=== PATIENT | female | born 1970 | race Caucasian/White ===

== ENCOUNTER 2022-03-20 09:55 | Outpatient (CLI) | payer OTHER, SELFPAY ==
--- OUTSIDE RECORDS SUMMARY | 2022-03-20 09:58 | XMS_ITS | Clinical Summary ---
:1970 Author Organization [facility] [place] [address] Care Team Providers Name Role Phone Vickey Weber MD Unavailable Allergies Active Allergy Reactions Severity Noted Date Comments Terbinafine Hives 07/06/2014 Medications Medication Sig Dispensed Refills Start Date End Date Status triamterene-hydrochlor Take 1 capsule by 0 4 Active othiazide, 37.5-25 mg, mouth. (DYAZIDE) 37.5-25 mg capsule LORazepam (ATIVAN) 0.5 Take 0.5-1 tablets 10 tablet 0 06/15/20 14 Active mg tab by mouth every 6 hours if needed for Anxiety or Sleep. Active Problems Problem Noted Date Unspecified essential hypertension 02/17/2007 Chronic interstitial cystitis 02/17/2007 Social History Tobacco Use Types Packs/Day Years Used Date Never Smoker Smokeless Tobacco: Never Used Tobacco Cessation: Counseling Given: Yes Alcohol Use Standard Drinks/Week Comments Yes 0 (1 standard drink = 0.6 oz pure alcoho l) occasionally Alcohol Habits Answer Date Recorded How often do you have a drink containing alcohol? Not asked How many drinks containing alcohol do you have on a Not aske d typical day when you are drinking? How often do you have six or more drinks on one occasion? No t asked Comment: occasionally 02/23/2014 Sex Assigned at Date Recorded Not on file Obstetrics History Para Term AB IAB SAB Ectopic Multiple Living Live Births 4 1 1 2 2 1 1 Date Outcome GA Total Labor/2nd/3rd Weight Sex Delivery Anes PTL Ivet A 1 A5 Name Clin Labor Term Pam ng SAB SAB Last Filed Vital Signs Vital Sign Reading Time Taken Comments Blood Pressure 125/86 07/25/2015 8:47 AM DIRECTOR OF ASSESSMENT Pulse 76 07/25/2015 8:47 AM DIRECTOR OF ASSESSMENT Temperature 37 ??C (98.6 ??F) 07/19/2014 10:58 AM DIRECTOR OF ASSESSMENT Respiratory Rate - - Oxygen Saturation 98% 07/25/2015 8:47 AM DIRECTOR OF ASSESSMENT Inhaled Oxygen Concentration - - Weight 74.8 kg (164 lb 12.8 oz) 07/25/2015 8:47 AM DIRECTOR OF ASSESSMENT Height - - Body Mass Index - - Plan of Treatment Health Maintenance Due Date Last Done Comments COVID-19 vaccine series (#1) 01/22/1972 Tdap 1982 Depression screening for age 12+ 1983 BMI (ht and wt on same day) for 1989 age 18+ Hepatitis C screening for age 0107/24/1989 18-79 Tetanus booster 1991 Colonoscopy through age 75 2016 Lipids for age 45-75 2016 Mammogram for age 45-75 2016 Zoster (shingles) series for age 0107/24/2021 50+ (1 of 2) Influenza for age 50-64 03/21/2022 Pap test for age 21-65 08/17/2024 08/17/2021, 08/17/2021, 10/11/2013, Additional history exists Results Not on filefrom Last 3 Months Insurance Payer Benefit Plan / Subscriber ID Effective Dates Phone Addre ss Type Group BLUE CROSS BLUE CROSS OF [id number] 2007-Present [address] [place] [address] BLUE CROSS BLUE CROSS OF [id number] 2013-Present [address] [place] [address] (Work) [id number] Care Teams Small Kick Press Operator Relationship Specialty Start Date End Date Vickey Weber MD 07/22/08
[2022-03-20 13:10] LABS: Albumin* 4.1 g/dL (3.3-5.0); Chloride* 101 mmol/L (96-114); Sodium* 137 mmol/L (135-149)
[2022-03-20 13:11] LABS: Potassium* 4.1 mmol/L (3.6-5.1)
[2022-03-20 13:13] LABS: Alanine Aminotransferase* 24 U/L (4-35); Alkaline Phosphatase* 81 U/L (40-150); Aspartate Amino Transferase* 25 U/L (12-35); Bilirubin Total* 0.4 mg/dL (0.1-1.5); Blood Urea Nitrogen* 13 mg/dL (7-30); Calcium* 9.5 mg/dL (8.4-10.6); Carbon Dioxide* 28 mmol/L (20-32); Cholesterol* 212 mg/dL (90-199); Creatinine* 0.9 mg/dL (0.5-1.5); Estimated Glomerular Filt Rate 78 ml/min; Glucose* 96 mg/dL (60-115); Total Protein* 6.9 g/dL (6.0-8.3); Triglycerides* 76 mg/dL (40-149)
[2022-03-20 13:14] LABS: HDL Cholesterol* 73 mg/dL (>=50); LDL Cholesterol Calculated 124 mg/dL (<100)
== END 2022-03-20 09:56 | disposition home or self-care (01) ==
PROVIDERS: PCP Internal Medicine; Visit Provider Internal Medicine
DX: I10 Essential (primary) hypertension (principal); F41.9 Anxiety disorder, unspecified
CPT/HCPCS: 80053; 80061; 84443

== ENCOUNTER 2022-04-09 11:55 | Outpatient (CLI) | payer OTHER, SELFPAY ==
--- OUTSIDE RECORDS SUMMARY | 2022-04-09 11:58 | XMS_ITS | Clinical Summary ---
:1970 Author Organization [facility] [place] [address] Care Team Providers Name Role Phone Vickey [...] Pressure 125/86 07/25/2015 8:47 AM DIRECTOR OF PRODUCT DEVELOPMENT Pulse 76 07/25/2015 8:47 AM DIRECTOR OF PRODUCT DEVELOPMENT Temperature 37 ??C (98.6 ??F) 07/19/2014 10:58 AM DIRECTOR OF PRODUCT DEVELOPMENT Respiratory Rate - - Oxygen Saturation 98% 07/25/2015 8:47 AM DIRECTOR OF PRODUCT DEVELOPMENT Inhaled Oxygen Concentration - - Weight 74.8 kg (164 lb 12.8 oz) 07/25/2015 8:47 AM DIRECTOR OF PRODUCT DEVELOPMENT Height - - Body Mass Index - [...] Type Group BLUE CROSS BLUE CROSS OF [id number] 2007-Present [address] [place] [address] BLUE CROSS BLUE CROSS OF [id number] 2013-Present [address] [place] [address] (Work) [id number] Care Teams Educational Audiologist Relationship Specialty Start Date End Date Vickey Weber MD 07/22/08
[2022-04-09 13:22] LABS: Creatinine Urine 48.7 mg/dL
[2022-04-09 13:26] LABS: Microalbumin Creatinine Ratio 20 mg/g (0-30); Microalbumin Urine < 1 mg/dL
[2022-04-14 11:52] LABS: Renin Activity 3.8 ng/mL/hr
== END 2022-04-09 11:56 | disposition home or self-care (01) ==
PROVIDERS: PCP Internal Medicine; Visit Provider Internal Medicine Nephrology
DX: Z01.419 Encounter for gynecological examination (general) (routine) without abnormal findings (principal); I10 Essential (primary) hypertension; F41.9 Anxiety disorder, unspecified
CPT/HCPCS: 82043; 82088; 82570; 84244; 87086; 87186

== ENCOUNTER 2022-04-26 09:04 | Outpatient (CLI) | payer OTHER, SELFPAY ==
--- OUTSIDE RECORDS SUMMARY | 2022-04-26 09:06 | XMS_ITS | Clinical Summary ---
:1970 Author Organization [facility] [place] [address] Care Team Providers Name Role Phone Vickey [...] Comments Blood Pressure 125/86 07/25/2015 8:47 AM REDEVELOPMENT MANAGER Pulse 76 07/25/2015 8:47 AM REDEVELOPMENT MANAGER Temperature 37 ??C (98.6 ??F) 07/19/2014 10:58 AM REDEVELOPMENT MANAGER Respiratory Rate - - Oxygen Saturation 98% 07/25/2015 8:47 AM REDEVELOPMENT MANAGER Inhaled Oxygen Concentration - - Weight 74.8 kg (164 lb 12.8 oz) 07/25/2015 8:47 AM REDEVELOPMENT MANAGER Height - - Body Mass Index - [...] Type Group BLUE CROSS BLUE CROSS OF [id number] 2007-Present [address] [place] [address] BLUE CROSS BLUE CROSS OF [id number] 2013-Present [address] [place] [address] (Work) [id number] Care Teams Port Engineer Relationship Specialty Start Date End Date Vickey Weber MD 07/22/08
--- NOTE | 2022-04-26 09:15 | CRLHL7_ITS ---
For Patients: As a result of the Century Cures Act, medical imaging exams and procedure reports are released immediately into your electronic medical record. You may view this report before your referring provider. If you have questions, please contact your health care provider. Indication: Persistent hypertension, evaluate for renal artery stenosis. Technique: Routine renal artery duplex ultrasound examination, with 2D and spectral analysis, and color doppler imaging. Comparison: None available. Findings: The right kidney measures 11.3 x 4.3 x 4.5 cm without evidence of hydronephrosis, abnormal cortical echotexture, or cortical thinning. No obvious calcifications or masses. The left kidney measures 10.9 x 5.3 x 6.3 cm without evidence of hydronephrosis, abnormal cortical echotexture, or cortical thinning. No obvious calcifications or masses. Bilateral renal arteries are well-visualized. The velocity in the abdominal aorta was measured at 176.5 cm/second. The right renal artery was measured at 263.3 cm/sec, and the left renal artery was measured at 185 cm/sec. This results in the renal artery ratio 1.5 and 1, respectively. Resistive indices in the upper, mid, and lower pole of the right and left kidney were acquired at 0.6, 0.6 and 0.6 for the right kidney and 0.5, 0.6 and 0.7 for the left kidney. The urinary bladder appears normal. Bilateral renal veins are patent on color and spectral analysis. Impression: 1. No sonographic evidence of a hemodynamically significant renal artery stenosis. 2. No evidence of hydronephrosis. Dictated by Igor Fuller MD @ 04/26/2022 1:20:50 PM (Electronically Signed)
== END 2022-04-26 09:05 | disposition home or self-care (01) ==
LOC: US 09:04
PROVIDERS: PCP Internal Medicine; Visit Provider Internal Medicine Nephrology
DX: I10 Essential (primary) hypertension (principal)
CPT/HCPCS: 76775; 93975

== ENCOUNTER 2022-05-22 15:23 | Outpatient (CLI) | payer OTHER, SELFPAY ==
--- OUTSIDE RECORDS SUMMARY | 2022-05-22 08:35 | XMS_ITS | Clinical Summary ---
:1970 Author Organization [facility] [facility] [place] [address] Care Team Providers Name Role Phone Vickey [...] Comments Blood Pressure 125/86 07/25/2015 8:47 AM MATHEMATICS EDUCATION PROFESSOR Pulse 76 07/25/2015 8:47 AM MATHEMATICS EDUCATION PROFESSOR Temperature 37 ??C (98.6 ??F) 07/19/2014 10:58 AM MATHEMATICS EDUCATION PROFESSOR Respiratory Rate - - Oxygen Saturation 98% 07/25/2015 8:47 AM MATHEMATICS EDUCATION PROFESSOR Inhaled Oxygen Concentration - - Weight 74.8 kg (164 lb 12.8 oz) 07/25/2015 8:47 AM MATHEMATICS EDUCATION PROFESSOR Height - - Body Mass Index - [...] Type Group BLUE CROSS BLUE CROSS OF [id number] 2007-Present [address] [place] [address] BLUE CROSS BLUE CROSS OF [id number] 2013-Present [address] [place] [address] (Work) [id number] Care Teams Parking Meter Servicer Relationship Specialty Start Date End Date Vickey Weber MD 07/22/08
--- OUTSIDE RECORDS SUMMARY | 2022-05-22 08:35 | XMS_ITS | Clinical Summary ---
:1970 Author Organization [facility] Address [address] [place] [address] Care Team Providers Name Role Phone Unavailable Primary Care Provider Unavailable Source Comments Patient records contain information from all sites at [facility]. For routine questions regarding patient records, call [phone] during business hours, M-F 8:00 AM - 5:00 PM Central Time. Record requests for emergency care only can be directed to [phone] at any time.[facility] Medications Medication Sig Dispensed Refills Start Date End Date Status carvediloL (COREG) Take 1 tablet 180 tablet 3 04/09/202204/09 Active 12.5 mg tablet (12.5 mg total) by mouth 2 (two) times a day with meals. escitalopram Take 1 tablet 90 tablet 3 04/09/2022 04/09/2023 A ctive (LEXAPRO) 10 mg (10 mg total) by tablet mouth daily. losartan (COZAAR) 50 Take 1 tablet 90 tablet 3 04/09/20222 Active mg tablet (50 mg total) by mouth daily. triamterene-hydroCHLO Take 1 capsule 90 capsule 3 04/09/2022 0 04/09/2023 Active ROthiazide (DYAZIDE) by mouth daily. 37.5-25 mg per capsule LORazepam (ATIVAN) Take 1 tablet 30 tablet 0 04/09/2022 Active 0.5 mg tablet (0.5 mg total) by mouth 2 (two) times a day as needed for anxiety. Active Problems Problem Noted Date Hypertension And Chronic Kidney Disease Stage 1 2021 Apnea Sleep Obstructive 04/09/2022 Encounters Date Type Specialty Care Team Description 04/09/2022 External Outreach Nephrology and Ducor, Hyperten renetta And Chronic Kidney Disease Stage 1 (Primary Dx); Hypertension Matt Guillaume Jr., Apnea Sleep Ob structive D.O. from Last 3 Months Social History Tobacco Use Types Packs/Day Years Used Date Smoking Tobacco: Never Assessed Sex Assigned at Date Recorded Not on file Last Filed Vital Signs Vital Sign Reading Time Taken Comments Blood Pressure 124/92 04/09/2022 12:24 PM CDT Pulse 83 04/09/2022 12:24 PM CDT Temperature - - Respiratory Rate - - Oxygen Saturation - - Inhaled Oxygen Concentration - - Weight 77.1 kg (169 lb 15.6 oz) 04/09/2022 12:24 PM CDT Height 169.5 cm (5' 6.73) 04/09/2022 12:24 PM CDT Body Mass Index 26.84 04/09/2022 12:24 PM CDT Plan of Treatment Health Maintenance Due Date Last Done Comments CT Colonography 1971 Cologuard 1971 Colonoscopy 1971 Colorectal Cancer Screening 1971 Creatinine Level 1971 FIT 1971 Fasting Glucose for Diabetes 1971 Screening HIV Screening 1971 Hepatitis C Screening 1971 Lipid (Cholesterol) Screening 1971 Mammogram 1971 Potassium Level 1971 Sodium Level 1971 Hepatitis B Vaccines (3 of 3 03/30/1994 10/28/1993, - 19+ 3-dose series) 09/27/1993 DTaP,Tdap,and Td Vaccines (2 09/28/2017 09/29/2007 - Td or Tdap) Depression Screening (Annual 07/21/2021 PHQ-2) COVID-19 Vaccine (4 - Booster 2021 05/29/2021, for Pfizer series) 11/04/2020, 10/14/2020 Zoster Vaccines (1 of 2) 2021 Influenza Vaccine (#1) 2022 Office Visit for Blood 07/09/2022 04/09/2022 Pressure Check / Re-check Cervical Cancer Screening 08/17/2024 08/17/2021 Pneumococcal vaccine (0-64 Aged Out No lo nger eligible based years) on patient's age to complete this to [facility] Insurance Payer Benefit Plan Subscriber ID Effective Dates Phone Address Type / Group [facility] [id number] 2020-Presen [phone] [address] Medicaid HMO t [address] [place] [address]
--- OUTSIDE RECORDS SUMMARY | 2022-05-22 08:35 | XMS_ITS | Encounter Summary ---
:1970 Author Organization [facility] Address [address] [place] [id number] Care Team Providers Name Role Phone Unavailable Primary Care Provider Unavailable Reason for Visit Appointment Request (Routine) - Closed Specialty Diagnoses / Procedures Referred By Contact Refer red To Contact Nephrology and Vickey Weber Hypertension M.D. [address] [place] [address] Referral ID Status Reason Start Date Expiration Date Visits Requ ested Visits Authorized [id number] Closed 03/20/2022 03/20/2023 1 Encounter Details Date Type Department Care Team Description 04/09/2022 External Outreach Division of Anisha Milian on And Chronic Kidney Disease Stage 1 (Primary Dx); Nephrology and Matt Guillaume Jr., Apnea Sleep Obstructive Hypertension in .[place], [place] [address] [facility] [address] [place] [phone] [phone] Social History Tobacco Use Types Packs/Day Years Used Date Smoking Tobacco: Never Assessed Sex Assigned at Date Recorded Not on file documented as of this encounter Last Filed Vital Signs Vital Sign Reading [...] Mass Index 26.84 04/09/2022 12:24 PM CDT documented in this encounter Progress Notes Matt Milian Jr., D.O. - 04/09/2022 11:00 AM CDT Referring Provider: DR Weber SUBJECTIVE REASON FOR VISIT [place] [facility] Resistant hypertension, evaluation and management HISTORY OF PRESENT ILLNESS Ms. Cornell is a 51 y.o. female who presents with a history of hypertension which dates back to her 38th birthday. She was 3 times, had 1 live , no toxemia no eclampsia. She is a very extensive family history of hypertension in both her parents, all 4 of her grandparents, and also complications in her family including stroke and cardiac issues. She has been treated for many years with a combination diuretic, more recently required the additionof an ARB agent and amlodipine with issues of lower extremity swelling when she travels particularly. Her blood pressures recently at home have been in the 140s generally systolic, over 90s without orthostatic issues. She is currently on the combination diuretic, losartan, and amlodipine. She avoid sodium. She does not use NSAIDs. She is not had distinct episodes of dramatic spells. I note in her history to episodes of hypokalemia, appreciated approximately 5 and 3 years ago. She has normal renal function, her urinalysis does not demonstrate abnormal urinary sediment, proteinuria assessment is pending. Renal imaging is pending. She does have sleep disordered breathing. She is currently using a dental appliance. However she still feels absolutely exhausted even after 8 hours of sleep. She is an international travel, owns her own business, often is dealing with high stress situations particularly surrounding organizing and orchestrating business conferences. She does not smoke cigarettes, she does not heavily drink alcohol drinking less than 3 alcoholic drinks per month No B symptoms, no recent weight loss, no other worrisome constitutional complaints. Of interest she also has interstitial cystitis, which troubles her, with nocturia several times per night. Past medical history: 1. Longstanding hypertension 2. Interstitial cystitis 3. Perimenopausal 4. Dysthymia/anxiety disorder Current Outpatient Medications: carvediloL (COREG) 12.5 mg tablet, Take 1 tablet (12.5 mg total) by mouth 2 (two) times a day with meals., Disp: 180 tablet, Rfl: 3 escitalopram (LEXAPRO) 10 mg tablet, Take 1 tablet (10 mg total) by mouth daily., Disp: 90 tablet, Rfl: 3 LORazepam (ATIVAN) 0.5 mg tablet, Take 1 tablet (0.5 mg total) by mouth 2 (two) times a day as needed for anxiety., Disp: 30 tablet, Rfl: 0 losartan (COZAAR) 50 mg tablet, Take 1 tablet (50 mg total) by mouth daily., Disp: 90 tablet, Rfl: 3 triamterene-hydroCHLOROthiazide (DYAZIDE) 37.5-25 mg per capsule, Take 1 capsule by mouth daily., Disp: 90 capsule, Rfl: 3 REVIEW OF SYSTEMS All other systems reviewed and are negative. OBJECTIVE BP (!) 124/92 Pulse 83 Ht 169.5 cm Wt 77.1 kg BMI 26.84 kg/m?? PHYSICAL EXAMINATION General: Awake alert oriented HEENT: [place], EOMI, Mucous membranes moist, no oral lesions Neck: No Masses, No Bruits Lungs: Clear to ascultation Heart: Regular Rate and Rhythm, No ectopy Murmurs or rubs Abdomen: Soft, Non-tender Extremities: No cyanosis, No clubbing: No edema Neuro: Cranial Nerves intact, Gait is normal, strength grossly normal Skin: no suspicious lesions identified Psychiatric: Normal affect DIAGNOSTICS Normal CBC normal chemistries urinalysis without active urinary sediment ASSESSMENT / PLAN #1 Hypertension And Chronic Kidney Disease Stage 1 Suspect this is essential hypertension, but there are some features, namely her sleep disordered breathing, , episodes of hypokalemia and extremely early age onset which require us to move ahead with evaluation. She has a very strong family history which leads us to believe that most likely she does have essential hypertension. From a diagnostic perspective: 1. Renal artery ultrasound with renal ultrasound 2. Check renin and Denis levels 3. Consider reassessment of her sleep, particularly overnight oximetry and perhaps formal sleep study From a therapeutic perspective: 1. Given her lower extremity swelling which she experiences with the amlodipine we will stop this. 2. We will start carvedilol 12.5 mg twice daily 3. I suspect we will end up using spironolactone in place of her current diuretic regimen 4. Continue low-sodium diet 5. No NSAIDs or Castaneda 2 inhibitors 6. Advised daily aerobic exercise for 20 minutes She will be out of the country, I will see her back in May with the results. Offered her all my contact information, so that we can fine tune her regimen. #2 Apnea Sleep Obstructive As above I suspect that she will go on to require at least overnight oximetry, versus a formal sleepstudy. She is not interested whatsoever in a CPAP device, due to her heavy travel schedule. She is working with her dentist to perhaps re formulate her current dental appliance which is designed to keep her lower jaw away from the back of her throat. Total time: 1 hour and 5 minutes Counseling Time: 50 minutes Matt Milian Jr., D.O. documented in this encounter Plan of Treatment Not on filedocumented as of this encounter Visit Diagnoses Diagnosis Hypertension And Chronic Kidney Disease Stage 1 - Primary Apnea Sleep Obstructive documented in this encounter
--- OUTSIDE RECORDS SUMMARY | 2022-05-22 08:35 | XMS_ITS | Encounter Summary ---
:1970 Author Organization [facility] Address [address] [place] [address] Care Team Providers Name Role Phone Unavailable Primary Care Provider Unavailable Encounter Details Date Type Department Care Team Description 02/11/1994 - Hospital Encounter HX RST 061 Provider, Historical 02/13/1994 Social History Tobacco Use Types Packs/Day Years Used Date Smoking Tobacco: Never Assessed Sex Assigned at Date Recorded Not on file documented as of this encounter Plan of Treatment Not on filedocumented as of this encounter Visit Diagnoses Not on filedocumented in this encounter
[2022-05-22 11:03] LABS: Creatinine Urine 118.9 mg/dL; Microalbumin Creatinine Ratio 0 mg/g (0-30); Microalbumin Urine < 1 mg/dL
[2022-05-23 18:51] LABS: Aldolase 2.9 U/L (1.2-7.6)
== END 2022-05-22 15:24 | disposition home or self-care (01) ==
PROVIDERS: PCP Internal Medicine; Visit Provider Internal Medicine Nephrology
DX: Z01.818 Encounter for other preprocedural examination (principal); I10 Essential (primary) hypertension
CPT/HCPCS: 82043; 82085; 82570; 84244; 87086; 87186

== ENCOUNTER 2022-06-06 11:36 | Outpatient (REF) | payer OTHER, SELFPAY ==
--- OUTSIDE RECORDS SUMMARY | 2022-06-06 11:45 | XMS_ITS | Encounter Summary ---
:1970 Author Organization [facility] Address [address] [place] [address] Care Team Providers Name Role Phone Unavailable [...]
--- OUTSIDE RECORDS SUMMARY | 2022-06-06 11:45 | XMS_ITS | Clinical Summary ---
:1970 Author Organization [facility] Address [address] [place] [address] Care Team Providers Name Role Phone Unavailable Primary Care Provider Unavailable Source Comments Patient records contain information from all sites at [facility]. For routine questions regarding patient records, call [phone] during business hours, M-F 8:00 AM - 5:00 PM Central Time. Record requests for emergency care only can be directed to [phone] at any time.[facility] Medications Medication Sig Dispensed [...] 50 Take 1 tablet 90 tablet 3 04/09/202203/22 Active mg tablet (50 mg total) by [...] Encounters Date Type Specialty Care Team Description 05/28/2022 External Outreach Nephrology and [place], Hyperten renetta And Chronic Kidney Disease Stage 1 (Primary Dx); Hypertension Matt Guillaume Jr., Apnea Sleep Ob structive D.O. 04/09/2022 External Outreach Nephrology and [place], Hyperten renetta And Chronic Kidney Disease Stage 1 (Primary Dx); Hypertension Matt Guillaume Jr., Apnea Sleep Ob structive D.O. from Last 3 Months Social History Tobacco Use Types Packs/Day Years Used Date Smoking Tobacco: Never Assessed Sex Assigned at Date Recorded Not on file Last Filed Vital Signs Vital Sign Reading Time Taken Comments Blood Pressure 130/72 05/28/2022 12:15 PM CABLE BRAIDER Pulse 75 05/28/2022 12:15 PM CABLE BRAIDER Temperature - - Respiratory Rate - - Oxygen Saturation - - Inhaled Oxygen Concentration - - Weight 78.9 kg (173 lb 15.1 oz) 05/28/2022 12:15 PM CABLE BRAIDER Height 169.5 cm (5' 6.73) 05/28/2022 12:15 PM CABLE BRAIDER Body Mass Index 27.46 05/28/2022 12:15 PM CABLE BRAIDER Plan of Treatment Health Maintenance Due Date [...] Vaccine (#1) 2022 Office Visit for Blood 05/28/2023 05/28/2022 Pressure Check / Re-check Cervical Cancer Screening 08/17/2024 08/17/2021 Pneumococcal vaccine (0-64 Aged Out No lo nger eligible based years) on patient's age to complete this to [facility] Insurance Payer Benefit Plan / Subscriber ID Effective Dates Phone Addre ss Type Group UCARE UCARE [id number] 2020-Present [phone] [address] [place] [address]
--- OUTSIDE RECORDS SUMMARY | 2022-06-06 11:45 | XMS_ITS | Encounter Summary ---
:1970 Author Organization [facility] Address [address] [place] [address] Care Team Providers Name Role Phone Unavailable Primary Care Provider Unavailable Reason for Visit Appointment Request (Routine) - Closed Specialty Diagnoses / Procedures Referred By Contact Refer red To Contact Nephrology and Vickey Weber Hypertension M.D. [address] [place] [address] Referral ID Status Reason Start Date Expiration Date Visits Requ ested Visits Authorized [id number] Closed 03/20/2022 03/20/2023 1 Encounter Details Date Type Department Care Team Description 04/09/2022 External Outreach Division of Anisha Milian on And Chronic Kidney Disease Stage 1 (Primary Dx); Nephrology and Matt Guillaume Jr., Apnea Sleep Obstructive Hypertension in [place], [place] [address] [facility] [address] [place] [phone] Social History Tobacco Use Types Packs/Day Years [...] Provider: DR Weber SUBJECTIVE REASON FOR VISIT [place] [facility] Resistant hypertension, evaluation [...]
--- OUTSIDE RECORDS SUMMARY | 2022-06-06 11:45 | XMS_ITS | Clinical Summary ---
:1970 Author Organization [facility] [place] [address] Care Team Providers Name Role Phone Vickey [...] Comments Blood Pressure 125/86 07/25/2015 8:47 AM FINISH MENDER Pulse 76 07/25/2015 8:47 AM FINISH MENDER Temperature 37 ??C (98.6 ??F) 07/19/2014 10:58 AM FINISH MENDER Respiratory Rate - - Oxygen Saturation 98% 07/25/2015 8:47 AM FINISH MENDER Inhaled Oxygen Concentration - - Weight 74.8 kg (164 lb 12.8 oz) 07/25/2015 8:47 AM FINISH MENDER Height - - Body Mass Index - [...] Type Group [employer]OSS [employer] OF [id number] 2007-Present [address] [place] [address] [employer] [id number] 2013-Present [address] [place] [address] (Work) [id number] Care Teams [place] Worker Relationship Specialty Start Date End Date Vickey Weber MD 07/22/08
--- OUTSIDE RECORDS SUMMARY | 2022-06-06 11:45 | XMS_ITS | Encounter Summary ---
:1970 Author Organization [facility] Address [address] [place] [address] Care Team Providers Name Role Phone Unavailable Primary Care Provider Unavailable Reason for Visit Appointment Request (Routine) - Closed Specialty Diagnoses / Procedures Referred By Contact Refer red To Contact Nephrology and Hypertension Referral ID Status Reason Start Date Expiration Date Visits Requ ested Visits Authorized [id number] Closed 05/03/2022 05/03/2023 1 Encounter Details Date Type Department Care Team Description 05/28/2022 External Outreach Division of Anisha Milian on And Chronic Kidney Disease Stage 1 (Primary Dx); Nephrology and Matt Guillaume Jr., Apnea Sleep Obstructive Hypertension in [place], [place] [address] [facility] [address] [place] [phone] Social History Tobacco Use Types Packs/Day Years Used Date Smoking Tobacco: Never Assessed Sex Assigned at Date Recorded Not on file documented as of this encounter Last Filed Vital Signs Vital Sign Reading Time Taken Comments Blood Pressure 130/72 05/28/2022 12:15 PM AWNING SPREADER Pulse 75 05/28/2022 12:15 PM AWNING SPREADER Temperature - - Respiratory Rate - - Oxygen Saturation - - Inhaled Oxygen Concentration - - Weight 78.9 kg (173 lb 15.1 oz) 05/28/2022 12:15 PM AWNING SPREADER Height 169.5 cm (5' 6.73) 05/28/2022 12:15 PM AWNING SPREADER Body Mass Index 27.46 05/28/2022 12:15 PM AWNING SPREADER documented in this encounter Progress Notes Matt Milian Jr., D.O. - 05/28/2022 12:00 PM CST Referring Provider: No primary care provider on file. SUBJECTIVE REASON FOR VISIT [place] [facility] Follow-up regards resistant hypertension HISTORY OF PRESENT ILLNESS Ms. Cornell is a 51 y.o. female who presents with a longstanding history of resistant hypertension. Her aldosterone levels are not out of concordance with her renin levels. Her renal artery ultrasound was negative for macrovascular stenosis. Her renin levels are not overly suppressed nor elevated. Her chemistries are acceptable her renal function normal, and she has no proteinuria. Her blood pressure has been running in the 130s to 140s over 70s and 80s without orthostatic issues.She was delighted that the lower extremity swelling was relieved with discontinuation of the amlodipine. She is still utilizing losartan 50 mg daily, carvedilol 12.5 mg twice daily, and triamterene/hydrochlorothiazide 37.5 mg, 25 mg She is still struggling with her sleep. She is traveling nearly constantly, and struggles with quite a bit of fatigue. History reviewed. No pertinent past medical history. Current Outpatient Medications: carvediloL (COREG) 12.5 mg [...] systems reviewed and are negative. OBJECTIVE BP 130/72 Pulse 75 Ht 169.5 cm Wt 78.9 kg BMI 27.46 kg/m?? PHYSICAL EXAMINATION General: Awake alert oriented [...] suspicious lesions identified Psychiatric: Normal affect DIAGNOSTICS All reviewed with the patient, symmetric normal renal sizes, without macrovascular stenosis or obstruction. ASSESSMENT / PLAN #1 Hypertension And Chronic Kidney Disease Stage 1 This is essential hypertension, and resistant. I am concerned about her sleep disordered breathing and, as below, we will move ahead towards a homesleep study and return with her in a month. We will continue with her current regimen including the followin. Losartan 50 mg orally daily 2. Carvedilol 12.5 mg orally twice daily 3. Triamterene/hydrochlorothiazide 37.5 mg, 25 mg orally daily. We will consider exchanging spironolactone for her combination diuretic above as our next step if weare unable to better improve her sleep. #2 Apnea Sleep Obstructive She is a mouth guard, but admits that she is snoring and waking up quite fatigued. As above, we willmove ahead with a home sleep study. Total time: 30 minutes Counseling Time: 25 minutes Matt Milian Jr., D.O. NG SPREADER documented in this encounter Plan of Treatment Not on filedocumented as of this encounter Visit Diagnoses Diagnosis Hypertension And Chronic Kidney Disease Stage 1 - Primary Apnea Sleep Obstructive documented in this encounter
[2022-06-06 13:18] LABS: Hemoglobin* 12.4 gm/dL (12.0-16.0)
[2022-06-06 13:29] LABS: Potassium* 4.5 mmol/L (3.6-5.1)
== END 2022-06-06 11:37 | disposition home or self-care (01) ==
LOC: NPINS 11:36
PROVIDERS: PCP Internal Medicine
DX: Z01.82 Encounter for allergy testing (principal)
CPT/HCPCS: 84132; 85018

== ENCOUNTER 2022-07-09 19:35 | Outpatient (CLI) | payer OTHER, SELFPAY ==
--- NOTE | 2022-07-23 08:52 | W.PM.SLEEP ---
Sleep Study Details Details Interpreting Provider: Rory Betancur MD Date of Sleep Study: 07/09/22 Sleep Study Details: STUDY TYPE:? Home ? BMI:? 28.1 ORDERING PROVIDER:? [place] INDICATION:? Concerns about sleep apnea ? SLEEP SUMMARY:? 474.8 minutes monitored RESPIRATORY SUMMARY:? AHI 19, supine AHI 21.3, left lateral AHI 6.0, right lateral AHI 8 Low oxygen 84 0.4% of study oxygen less than 90%, 0.1% of study oxygen less than 85% Snoring 19.8% PERIODIC LIMB MOVEMENTS OF SLEEP:? Not recorded CARDIAC:? Range 51-96, mean 66.7 IMPRESSION:? Moderate obstructive sleep apnea with supine position dependency. Apnea present in all positions. RECOMMENDATION: Treatment options would include AutoSet CPAP at pressure of 4-17 versus a dental appliance.
--- NOTE | 2022-08-07 13:13 | W.PM.SLEEP ---
Sleep Study Details Details Interpreting Provider: Rory Betancur MD Date of Sleep Study: 07/09/22 Sleep Study Details: STUDY TYPE:? Home ? BMI:? 28.1 ORDERING PROVIDER:? [place] INDICATION:? Concerns about sleep apnea ? SLEEP SUMMARY:? 474.8 minutes monitored RESPIRATORY SUMMARY:? AHI 19, supine AHI 21.3, left lateral 6.0, right lateral 8.00 Low oxygen 84 0.4% of study oxygen less than 90%, 0.1% of study less than 85% Snoring 19.8% PERIODIC LIMB MOVEMENTS OF SLEEP:? Not recorded CARDIAC:? 51-96, mean 61.7 IMPRESSION:? Moderate obstructive sleep apnea overall with supine position dependency RECOMMENDATION: Treatment options include AutoSet CPAP at pressure 4-17 versus a dental appliance.
== END 2022-07-09 19:36 | disposition home or self-care (01) ==
LOC: SLEEP 19:36
PROVIDERS: PCP Internal Medicine; Visit Provider Internal Medicine Nephrology
DX: G47.33 Obstructive sleep apnea (adult) (pediatric) (principal)
CPT/HCPCS: 95806

== ENCOUNTER 2022-07-23 14:17 | Outpatient (REF) | payer OTHER, SELFPAY ==
[2022-07-23 15:17] LABS: Potassium* 4.2 mmol/L (3.6-5.1)
== END 2022-07-23 14:18 | disposition home or self-care (01) ==
LOC: NPINS 14:17
PROVIDERS: PCP Internal Medicine
DX: Z01.812 Encounter for preprocedural laboratory examination (principal)
CPT/HCPCS: 84132

== ENCOUNTER 2023-01-17 13:03 | Outpatient (CLI) | payer MEDICAID, SELFPAY ==
--- NOTE | 2023-01-17 13:00 | CRLHL7_ITS ---
For Patients: As a result of the Century Cures Act, medical imaging exams and procedure reports are released immediately into your electronic medical record. You may view this report before your referring provider. If you have questions, please contact your health care provider. INDICATION: Low back pain. COMPARISON: None. TECHNIQUE: Sagittal T1, T2, and STIR sequences. Axial T1 and T2 weighted sequences. FINDINGS: Normal vertebral body alignment. No fractures. No vertebral body loss of height. No spondylolisthesis. No ligamentous injury. Normal marrow signal. No suspicious osseous lesions. Normal conus terminates at L1. Lumbar spondylosis with multilevel disc degeneration facet arthropathy. Marrow edema of the articular processes of the right L3-4 facet joint which may represent stress reaction or inflammation from facet arthritis. T12-L1 L1-2 L2-3: No spinal canal or neural foraminal narrowing. L3-4: Mild disc degeneration and posterior disc bulge. No narrowing of spinal canal. Mild narrowing of the bilateral foramina. Mild facet arthropathy. L4-5: Disc degeneration and posterior disc bulge. No narrowing of the spinal canal. Mild narrowing of the bilateral foramina. Mild os arthropathy. L5-S1: Annular bulge. No narrowing of spinal canal. No impingement of the traversing S1 nerve roots. No neural foraminal narrowing. Mild facet arthropathy. Normal visualized SI joints. Normal paraspinal soft tissues. A marker is not present on the title i paraprofessional or acquired images to further localize the reported lipoma. However, on the axial images, there is a asymmetric mildly prominent collection of fat at the level of S1 (series 5, image 22) which is not fully visualize within the field of view but may represent a portion of the reported lipoma. IMPRESSION: 1. Normal alignment. No fractures. 2. Lumbar spondylosis. 3. Marrow edema of the articular processes of right L3-4 facet joint may represent stress reaction or inflammation 4. At L3-4, mild narrowing of the bilateral neural foramina 5. At L4-5, mild narrowing of the bilateral neural foramina 6. No spinal canal or neural foraminal narrowing at the remaining levels Dictated by Te Mota MD @ 01/17/2023 9:54:00 PM (Electronically Signed)
== END 2023-01-17 13:04 | disposition home or self-care (01) ==
LOC: MRI 13:04
PROVIDERS: PCP Internal Medicine; Visit Provider Internal Medicine
DX: M54.50 Low back pain, unspecified (principal); M47.896 Other spondylosis, lumbar region; M51.26 Other intervertebral disc displacement, lumbar region
CPT/HCPCS: 72148

== ENCOUNTER 2023-02-20 11:13 | Outpatient (RCR) | payer MEDICAID, SELFPAY | END 2023-06-20 23:59 | disposition home or self-care (01) | PROVIDERS: PCP Internal Medicine; Visit Provider Family Medicine | DX: M47.816 Spondylosis without myelopathy or radiculopathy, lumbar region (principal); M51.36 Other intervertebral disc degeneration, lumbar region; R29.3 Abnormal posture; R53.1 Weakness; Z51.89 Encounter for other specified aftercare | CPT/HCPCS: 97110; 97162 ==

== ENCOUNTER 2023-03-11 13:59 | Outpatient (CLI) | payer OTHER, SELFPAY | END 2023-03-11 14:00 | disposition home or self-care (01) | LOC: INJ CL 14:00 | PROVIDERS: PCP Internal Medicine; Visit Provider Family Medicine | DX: M47.816 Spondylosis without myelopathy or radiculopathy, lumbar region (principal) | CPT/HCPCS: 64493; 64494; J0702; Q9966 ==

== ENCOUNTER 2023-08-19 09:48 | Outpatient (CLI) | payer OTHER, SELFPAY ==
--- OUTSIDE RECORDS SUMMARY | 2023-08-19 09:55 | XMS_ITS | Encounter Summary ---
Author Name Unknown Organization [facility] Address [address] [place] [address] Care Team Providers Care Dental Biller Name Role Phone Unavailable Primary Care Provider Unavailabl e Reason for Visit * Reason Comments Med Refill Encounter Details Date Type Department Care Team (Late st Contact Info) Description 03/16/2023 Refill Division of Nephrology and Hypertension in [place], [place] [address] [place] [address] Matt Milian Jr., D.O. [address] [place] [address] Med Refill Social History Tobacco Use Types Packs/Day Years Used Date Smoking Tobacco: Never Assessed Nutrition Answer Date Recorded Nutrition: EVOO Fat Source Unknown 03/20 Nutrition: Servings of Fruits/Vegetables per Day Not on file 03/20/2022 Dental Answer Date Recorded Dental: Regular Dentist Unknown 03/20/20 Sex and Gender Information Value Date Recorded Sex Assigned at Not on file Gender Identity Not on file Sexual Orientation Not on file documented as of this encounter Plan of Treatment Not on file documented as of this encounter Visit Diagnoses Not on filedocumented in this encounter
--- OUTSIDE RECORDS SUMMARY | 2023-08-19 09:55 | XMS_ITS | Referral Summary ---
Author Name Unknown Organization [facility] Address [address] [place] [address] Care Team Providers Care Culinary Internship Name Role Phone Unavailable Primary Care Provider Unavailabl e Source Comments Patient records contain information from all sites at [facility]. For routine questions regarding patient records, call [phone] during business hours, M-F 8:00 AM - 5:00 PM Central Time. Record requests for emergency care only can be directed to [phone] at any time.[facility] Medications Medication Sig Dispensed Refills Start Date End Date Status escitalopram (LEXAPRO) 10 mg tablet Take 1 tablet (10 mg total) by mouth daily. 90 tablet 3 04/09/2022 Active losartan (COZAAR) 50 mg tablet Take 1 tablet (50 mg total) by mouth daily. 90 tablet 3 04/09/2022 Active triamterene-hydroCHL OROthiazide (DYAZIDE) 37.5-25 mg per capsule Take 1 capsule by mouth daily. 90 capsule 3 04/09/2022 Active LORazepam (ATIVAN) 0.5 mg tablet Take 1 tablet (0.5 mg total) by mouth 2 (two) times a day as needed for anxiety. 30 tablet 0 04/09/2022 Active carvediloL (COREG) 12.5 mg tablet TAKE 1 TABLET(12.5 MG) BY MOUTH TWICE DAILY WITH MEALS 180 tablet 3 03/19/2023 Active Active Problems Problem Noted Date Diagnosed Date Hypertension And Chronic Kidney Disease Stage 1 04/09/2022 Apnea Sleep Obstructive 04/09/2022 Social History Tobacco Use Types Packs/Day Years [...] on file Sexual Orientation Not on file Last Filed Vital Signs Vital Sign Reading Time Taken Comments Blood Pressure 120/70 07/02/2022 3:45 PM LAN/WAN ENGINEER Pulse 60 07/02/2022 3:45 PM LAN/WAN ENGINEER Temperature - - Respiratory Rate - - Oxygen Saturation - - Inhaled Oxygen Concentration - - Weight 78 kg (171 lb 15.3 oz) 07/02/2022 3:45 PM LAN/WAN ENGINEER Height 169.5 cm (5' 6.73) 07/02/2022 3:45 PM CS T Body Mass Index 27.15 07/02/2022 3:45 PM LAN/WAN ENGINEER Plan of Treatment Not on file
--- OUTSIDE RECORDS SUMMARY | 2023-08-19 09:55 | XMS_ITS | Clinical Summary ---
Author Name Unknown Organization [facility] Address [address] [place] [address] Care Team Providers Care Lance Crewmember/Mlrs Sergeant Name Role Phone Unavailable Primary Care Provider Unavailabl e Source Comments Patient records contain information from all sites at [facility]. For routine questions regarding patient records, call [phone] during business hours, M-F 8:00 AM - 5:00 PM Central Time. Record requests for emergency care only can be directed to [phone] at any time.[facility] Medications Medication Sig Dispensed Refills Start Date [...] Comments Blood Pressure 120/70 07/02/2022 3:45 PM CLEARING INSPECTOR Pulse 60 07/02/2022 3:45 PM CLEARING INSPECTOR Temperature - - Respiratory Rate - - Oxygen Saturation - - Inhaled Oxygen Concentration - - Weight 78 kg (171 lb 15.3 oz) 07/02/2022 3:45 PM CLEARING INSPECTOR Height 169.5 cm (5' 6.73) 07/02/2022 3:45 PM CS T Body Mass Index 27.15 07/02/2022 3:45 PM CLEARING INSPECTOR Plan of Treatment Health Maintenance Due Date Last Done Comments CT Colonography 1971 Cologuard 1971 Colonoscopy 1971 Colorectal Cancer Screening 1971 Creatinine Level (Kidney Function Test) 1971 FIT 1971 Fasting Glucose for Diabetes Screening 1971 HIV Screening 1971 Hepatitis C Screening 1971 Lipid (Cholesterol) Screening 1971 Mammogram 1971 Potassium Level 1971 Sodium Level 1971 Hepatitis B Vaccines (3 of 3 - 19+ 3-dose series) 03/30/1994 10/28/1993, 09/27/1993 DTaP,Tdap,and Td Vaccines (2 - Td or Tdap) 09/28/2017 09/29/2007 Zoster Vaccines (1 of 2) 2021 COVID-19 Vaccine ( - 2022-24 season) 2023 02/26/2022, 05/29/2021, 11/04/2020, Additional history exists Influenza Vaccine (#1) 2023 Office Visit for Blood Pressure Check / Re-check 07/02/2023 07/02/2022 Depression Screening (Annual PHQ-2) 07/21/2023 Cervical Cancer Screening 08/17/2024 08/17/2021 Pneumococcal vaccine (0-64 years) Aged Out No longer eligible based on patient's age to complete this topic
--- OUTSIDE RECORDS SUMMARY | 2023-08-19 09:55 | XMS_ITS | Clinical Summary ---
Author Name Unknown Organization [facility] Address [place], [place] [address] Care Team Providers Care Perianesthesia Rn Name Role Phone Vickey Weber MD Primary Care Provider Vickey Weber MD Unavailable [phone] Allergies Active Allergy Reactions Criticality Noted Date Comments Terbinafine Hives 07/06/2014 Medications Medication Sig Dispensed Refills Start Date End Date Status triamterene-hydrochlo rothiazide, 37.5-25 mg, (DYAZIDE) 37.5-25 mg capsule Take 1 capsule by mouth. 0 02/23/2014 Active LORazepam (ATIVAN) 0.5 mg tab Take 0.5-1 tablets by mouth every 6 hours if needed for Anxiety or Sleep. 10 tablet 0 06/15/2014 Active amLODIPine (NORVASC) 10 mg tablet Take 10 mg by mouth once daily. 0 06/19/2022 Active escitalopram oxalate (LEXAPRO) 10 mg tablet Take 10 mg by mouth once daily. 0 Active lansoprazole (PREVACID) 30 mg capsule TAKE 1 CAPSULE BY MOUTH DAILY FOR GERD 0 12/20/2022 Active losartan (COZAAR) 50 mg tablet Take 50 mg by mouth once daily. 0 Active Active Problems Problem Noted Date Diagnosed Date Unspecified essential hypertension 02/17/2007 Chronic interstitial cystitis 02/17/2007 Social History Tobacco Use Types Packs/Day Years Used Date Smoking Tobacco: Never Smokeless Tobacco: Never Tobacco Cessation:Counseling Given: Yes Alcohol Use Standard Drinks/Week Comments Yes 0 (1 standard drink = 0.6 oz pur e alcohol) occasionally Social Connections Answer Date Recorded Frequency of Communication with Friends and Fami ly Not on file 02/03/2023 Sex and Gender Information Value Date Recorded Sex Assigned at Not on file Gender Identity Not on file Sexual Orientation Not on file Obstetrics History Para Term AB IAB SAB Ectopic Multiple Livin g Live Births 4 1 1 2 2 1 1 Date Outcome GA Total Labor Labor/2nd/3rd Weight Sex Delivery Anes PTL Ivet A1 A5 Name Cl in Term Pam ng SAB SAB Last Filed Vital Signs Vital Sign Reading Time Taken Comments Blood Pressure 129/85 02/03/2023 11:04 AM CDT Pulse 70 02/03/2023 11:04 AM CDT Temperature 36.8 ??C (98.3 ??F) 02/03/2023 1 1:04 AM CDT Respiratory Rate - - Oxygen Saturation 100% 02/03/2023 11: 04 AM CDT Inhaled Oxygen Concentration - - Weight 74.8 kg (164 lb 12.8 oz) 07/25/2015 8:47 AM WOOD FUEL PELLETIZER Height - - Body Mass Index - - Plan of Treatment Upcoming Encounters Date Type Department Care Team (Late st Contact Info) Description 08/20/2023 8:00 AM WOOD FUEL PELLETIZER Ancillary Procedure [facility] [address] [place] [address] Health Maintenance Due Date Last Done Comments COVID-19 vaccine series (#1) 01/22/1972 Tdap 1982 Depression screening for age 12+ 1983 HIV for age 15-65 1986 BMI (ht and wt on same day) for age 18+ 1989 Hepatitis C screening for age 18-79 1989 Tetanus booster 1991 Colonoscopy through age 75 2016 Lipids for age 45-75 2016 Mammogram for age 45-75 2016 Zoster (shingles) series for age 50+ (1 of 2) 2021 Influenza for age 50-64 03/21/2023 Pap test for age 21-65 08/17/2024 2, 08/17/2021, 10/11/2013, Additional history exists Pneumococcal series for age 6-64 Aged Out No longer eligible based on patient's age to complete this topic Care Teams Perianesthesia Rn Relationship Specialty Start Date End Date Vickey Weber MD [address] [place] [address] PCP - General Internal Medicine 01/20/23 Vickey Weber MD [address] [place] [address] 07/22/08
--- OUTSIDE RECORDS SUMMARY | 2023-08-19 09:55 | XMS_ITS ---
Author Name Unknown Organization [facility] Address [address] [place] [address] Care Team Providers Care Facility Maintenance Helper Name Role Phone Unavailable Unavailable Unavailable Surgery Details Not on file Complications Check Surgery Details section. Procedure Estimated Blood Loss Check Surgery Details section. Procedure Findings Check Surgery Details section. Procedure Specimens Taken Check Surgery Details section.
== END 2023-08-19 09:49 | disposition home or self-care (01) ==
PROVIDERS: PCP Internal Medicine; Visit Provider Internal Medicine
DX: R53.83 Other fatigue (principal)
CPT/HCPCS: 80053; 84443; 86644; 86645; 86663

== ENCOUNTER 2023-09-01 08:15 | Outpatient (CLI) | payer OTHER, SELFPAY ==
--- OUTSIDE RECORDS SUMMARY | 2023-09-01 11:43 | XMS_ITS | Clinical Summary ---
Author Name Unknown Organization [facility] Address [place], [place] [address] Care Team Providers Care Sharepoint Application Developer Name Role Phone Vickey Weber MD Primary Care Provider Vickey Weber MD Unavailable [phone] Allergies Active Allergy Reactions Criticality Noted Date [...] essential hypertension 02/17/2007 Chronic interstitial cystitis 02/17/2007 Encounters Date Type Department Care Team Description 08/20/2023 8:00 AM MARKETING PROJECT LEAD Ancillary Procedure [facility] [address] [place] [address] 08/20/2023 Travel from Last 3 Months Social History Tobacco [...] (164 lb 12.8 oz) 07/25/2015 8:47 AM MARKETING PROJECT LEAD Height - - Body Mass Index - [...] 75 2016 Lipids for age 45-75 2016 Zoster (shingles) series for age 50+ (1 of 2) 2021 Influenza for age 50-64 03/21/2023 Pap test for age 21-65 08/17/2024 2, 08/17/2021, 10/11/2013, Additional history exists Mammogram for age 45-75 08/20/2024 08/20/2023 Pneumococcal series for age 6-64 Aged Out No longer eligible based on patient's age to complete this topic Procedures Procedure Name Priority Date/Time Associated Diagnosis Comments XR MAMMO ARGENIS BILAT SCREEN Routine 08/20/2023 8:18 AM MARKETING PROJECT LEAD Visit for screening mammogram from Last 3 Months Results * XR MAMMO ARGENIS BILAT SCREEN (08/20/2023 8:18 AM MARKETING PROJECT LEAD) Anatomical Region Laterality Modality BREASTS, Breast Left, Breast Right Bilateral Mammography Impressions 08/20/2023 2:42 PM MARKETING PROJECT LEAD ??There is no radiographic evidence for malignancy. ??Recommend annual mammograms. MAMMOGRAM ASSESSMENT: ??ACR 1 Negative PATIENTS: You will also receive a letter with your examination results in an easy to read format. ??If you have questions about your results, please contact your referring provider. Narrative 08/20/2023 2:42 PM MARKETING PROJECT LEAD For Patients: As a result of the Cures Act, medical imaging exams and procedure reports are released immediately into your electronic medical record. You may view this report before your referring provider. If you have questions, please contact your health care provider. XR MAMMO ARGENIS BILAT SCREEN [[id number]] CLINICAL HISTORY: ??This is an asymptomatic 53 y.o. patient. INDICATION FOR EXAM: Mammogram Screening. TECHNIQUE: CC & MLO views were obtained. ??This study was evaluated with the assistance of Computer-Aided Detection. Breast Tomosynthesis was used in interpretation. COMPARISON FILM: Priors not available at the time of this report. ? FINDINGS: ??The breasts are heterogeneously dense, which may obscure small masses. There are no dominant masses, suspicious micro calcifications or areas of architectural distortion. Matt Madden MD MAMMO from Last 3 Months Care Teams Sharepoint Application Developer Relationship Specialty Start Date End Date Vickey Weber MD [address] [place] [address] PCP - General Internal Medicine 01/20/23 Vickey Weber MD [address] [place] [address] 07/22/08
--- OUTSIDE RECORDS SUMMARY | 2023-09-01 11:43 | XMS_ITS | Referral Summary ---
Author Name Unknown Organization [facility] Address [address] [place] [address] Care Team Providers Care Reserves Clerk Name Role Phone Unavailable Primary Care Provider Unavailabl e Source Comments Patient records contain information from all sites at [facility]. For routine questions regarding patient records, call [phone] during business hours, M-F 8:00 AM - 5:00 PM Central Time. Record requests for emergency care only can be directed to [phone] at any time.[facility] Medications Medication Sig Dispensed Refills Start Date [...] Comments Blood Pressure 120/70 07/02/2022 3:45 PM GYMNASIUM TEACHER Pulse 60 07/02/2022 3:45 PM GYMNASIUM TEACHER Temperature - - Respiratory Rate - - Oxygen Saturation - - Inhaled Oxygen Concentration - - Weight 78 kg (171 lb 15.3 oz) 07/02/2022 3:45 PM GYMNASIUM TEACHER Height 169.5 cm (5' 6.73) 07/02/2022 3:45 PM CS T Body Mass Index 27.15 07/02/2022 3:45 PM GYMNASIUM TEACHER Plan of Treatment Not on file
--- OUTSIDE RECORDS SUMMARY | 2023-09-01 11:43 | XMS_ITS | Encounter Summary ---
Author Name Unknown Organization [facility] Address [address] [place] [address] Care Team Providers Care Fountain Attendant Name Role Phone Unavailable Primary Care Provider Unavailabl e Reason for Visit * Reason Comments Med Refill Encounter Details Date Type Department Care Team (Late st Contact Info) Description 03/16/2023 Refill Division of Nephrology and Hypertension in [place], [place] [address] [place] [address] Matt Milian Jr., D.O. [address] [place] [address] Med Refill Social History Tobacco Use Types [...]
--- OUTSIDE RECORDS SUMMARY | 2023-09-01 11:43 | XMS_ITS ---
Author Name Unknown Organization [facility] Address [address] [place] [address] Care Team Providers Care Law Tutor Name Role Phone Unavailable Unavailable Unavailable Surgery Details Not on file Complications Check Surgery Details section. Procedure Estimated Blood Loss Check Surgery Details section. Procedure Findings Check Surgery Details section. Procedure Specimens Taken Check Surgery Details section.
--- OUTSIDE RECORDS SUMMARY | 2023-09-01 11:43 | XMS_ITS | Clinical Summary ---
Author Name Unknown Organization [facility] Address [address] [place] [address] Care Team Providers Care Sales Support Engineer Name Role Phone Unavailable Primary Care Provider Unavailabl e Source Comments Patient records contain information from all sites at [facility]. For routine questions regarding patient records, call [phone] during business hours, M-F 8:00 AM - 5:00 PM Central Time. Record requests for emergency care only can be directed to [phone] at any time.[facility] Medications Medication Sig Dispensed Refills Start Date [...] Comments Blood Pressure 120/70 07/02/2022 3:45 PM CREDIT CONTROL CLERK Pulse 60 07/02/2022 3:45 PM CREDIT CONTROL CLERK Temperature - - Respiratory Rate - - Oxygen Saturation - - Inhaled Oxygen Concentration - - Weight 78 kg (171 lb 15.3 oz) 07/02/2022 3:45 PM CREDIT CONTROL CLERK Height 169.5 cm (5' 6.73) 07/02/2022 3:45 PM CS T Body Mass Index 27.15 07/02/2022 3:45 PM CREDIT CONTROL CLERK Plan of Treatment Health Maintenance Due Date [...] - 19+ 3-dose series) 03/30/1994 10/28/1993, 09/27/1993 Zoster Vaccines (1 of 2) 2021 COVID-19 Vaccine (2022-24 season) 2023 02/26/2022, 05/29/2021, 11/04/2020, Additional history exists Influenza Vaccine (#1) 2023 Office Visit for Blood Pressure Check / Re-check 07/02/2023 07/02/2022 Depression Screening (Annual PHQ-2) 07/21/2023 Cervical Cancer Screening 08/17/2024 08/17/2021 DTaP,Tdap,and Td Vaccines (3 - Td or Tdap) 08/19/2033 08/19/2023, 09/29/2007 Pneumococcal vaccine (0-64 years) Aged Out No longer eligible based on patient's age to complete this topic [facility] [place] [address]
== END 2023-09-01 08:16 | disposition home or self-care (01) ==
LOC: NFLDREF 11:36
PROVIDERS: PCP Internal Medicine; Referring Provider Internal Medicine; Visit Provider Internal Medicine
DX: Z13.21 Encounter for screening for nutritional disorder (principal)
CPT/HCPCS: 84132

== ENCOUNTER 2023-09-18 15:52 | Outpatient (CLI) | payer OTHER, SELFPAY ==
[2023-09-19 00:02] LABS: Chlamydia DNA Amplified* NOT DETECTED (No Detected); GC DNA Amplified* NOT DETECTED (No Detected)
== END 2023-09-18 15:53 | disposition home or self-care (01) ==
PROVIDERS: PCP Internal Medicine; Visit Provider Registered Nurse
DX: Z11.3 Encounter for screening for infections with a predominantly sexual mode of transmission (principal)
CPT/HCPCS: 86592; 86703; 86803; 87340; 87491; 87591

== ENCOUNTER 2024-02-18 16:43 | Outpatient (CLI) | payer OTHER, SELFPAY ==
--- OUTSIDE RECORDS SUMMARY | 2024-02-18 16:47 | XMS_ITS | Clinical Summary ---
Author Organization [facility] Address [address] [place] [address] Care Team Providers Care Religious Leader Name Role Phone Unavailable Primary Care Provider Unavailabl e Source Comments Patient records contain information from all sites at [facility]. For routine questions regarding patient records, call [phone] during business hours, M-F 8:00 AM - 5:00 PM Central Time. Record requests for emergency care only can be directed to [phone] at any time.[facility] Medications Medication Sig Dispensed Refills Start Date [...] day as needed for anxiety. 30 tablet 04/09/2022 Active carvediloL (COREG) 12.5 mg tablet TAKE 1 TABLET(12.5 MG) BY MOUTH TWICE DAILY WITH MEALS 180 tablet 3 03/19/2023 Active Active Problems Problem Noted Date Diagnosed Date Hypertensive Chronic Kidney Disease With Stage 1 Through Stage 4 Chronic Kidney Disease, Or Unspecified Chronic Kidney Disease 04/09/2022 Apnea Sleep Obstructive 04/09/2022 Social History [...] Comments Blood Pressure 120/70 07/02/2022 3:45 PM CLUB ATTENDANT Pulse 60 07/02/2022 3:45 PM CLUB ATTENDANT Temperature - - Respiratory Rate - - Oxygen Saturation - - Inhaled Oxygen Concentration - - Weight 78 kg (171 lb 15.3 oz) 07/02/2022 3:45 PM CLUB ATTENDANT Height 169.5 cm (5' 6.73) 07/02/2022 3:45 PM CS T Body Mass Index 27.15 07/02/2022 3:45 PM CLUB ATTENDANT Plan of Treatment Health Maintenance Due Date [...] (1 of 2) 2021 COVID-19 Vaccine ( season) 2023 02/26/2022, 05/29/2021, 11/04/2020, Additional history exists Office Visit for Blood Pressure Check / Re-check 07/02/2023 07/02/2022 Depression Screening (Annual PHQ-2) 07/21/2023 Influenza Vaccine (#1) 2024 Cervical Cancer Screening 08/17/2024 08/17/2021 DTaP,Tdap,and Td Vaccines (3 - Td or Tdap) 08/19/2033 08/19/2023, 09/29/2007 Pneumococcal vaccine (0-64 years) Aged Out No longer eligible based on patient's age to complete this topic [place] [id number]
--- OUTSIDE RECORDS SUMMARY | 2024-02-18 16:47 | XMS_ITS | Referral Summary ---
Author Organization [facility] Address [address] [place] [address] Care Team Providers Care Steel Tier Name Role Phone Unavailable Primary Care Provider Unavailabl e Source Comments Patient records contain information from all sites at [facility]. For routine questions regarding patient records, call [phone] during business hours, M-F 8:00 AM - 5:00 PM Central Time. Record requests for emergency care only can be directed to [phone] at any time.[facility] Medications Medication Sig Dispensed Refills Start Date [...] Comments Blood Pressure 120/70 07/02/2022 3:45 PM DEPARTMENT STORE SALESPERSON Pulse 60 07/02/2022 3:45 PM DEPARTMENT STORE SALESPERSON Temperature - - Respiratory Rate - - Oxygen Saturation - - Inhaled Oxygen Concentration - - Weight 78 kg (171 lb 15.3 oz) 07/02/2022 3:45 PM DEPARTMENT STORE SALESPERSON Height 169.5 cm (5' 6.73) 07/02/2022 3:45 PM CS T Body Mass Index 27.15 07/02/2022 3:45 PM DEPARTMENT STORE SALESPERSON Plan of Treatment [place] [address] [id number]
--- OUTSIDE RECORDS SUMMARY | 2024-02-18 16:47 | XMS_ITS ---
Author Organization [facility] Address [address] [place] [address] Care Team Providers Care Vessel Builder Name Role Phone Unavailable Unavailable Unavailable Surgery Details Not on file Complications Check Surgery Details section. Procedure Estimated Blood Loss Check Surgery Details section. Procedure Findings Check Surgery Details section. Procedure Specimens Taken Check Surgery Details section.
--- OUTSIDE RECORDS SUMMARY | 2024-02-18 16:47 | XMS_ITS | Encounter Summary ---
Author Organization [facility] Address [address] [place] [address] Care Team Providers Care Contact Lens Edge Buffer Name Role Phone Vickey Weber MD Primary Care Provider Gonzalez Beckett MD Unavailable [phone] Herman Keller MD Unavailable [phone] Encounter Details Date Type Department Care Team (Latest Contact Info) Description 12/22/2023 Travel Social History Tobacco Use Types Packs/Day Years Used Date Smoking Tobacco: Never Smokeless Tobacco: Never Adolescent Education Answer Date Record ed Getting School Help Needed Not on file 09/11 Sex and Gender Information Value Date Recorded Sex Assigned at Not on file Gender Identity Not on file Sexual Orientation Not on file documented as of this encounter Plan of Treatment Upcoming Encounters Date Type Department Care Team (Late st Contact Info) Description 04/20/2024 8:00 AM CDT Hospital Encounter [facility] [address] [phone] Murphy Otoole MD [facility] [address] [address] 04/20/2024 8:00 AM CDT - 04/20/2024 8:30 AM CDT Surgery [facility] [address] [phone] Murphy Otoole MD [facility] [address] [address] Colonoscopy 08/23/2024 12:00 PM REVIEW SPECIALIST Appointment [facility] Breast [place] [address] [facility], [address] [place] [phone] Herman Keller MD [address] [place], [place] [address] 08/27/2024 10:00 AM REVIEW SPECIALIST Oncology Visit [facility] [address], [place] [address] [place] [place] [phone] Herman Keller MD [address] [place], [place] [address] Scheduled Procedures Name Priority Associated Diagnoses Date/Ti me COLONOSCOPY Malignant neoplasm of upper-inner quadrant of right breast in female, estrogen receptor negative (H) 04/20/2024 8:00 AM CDT documented as of this encounter Visit Diagnoses Not on filedocumented in this encounter Care Teams Contact Lens Edge Buffer Relationship Specialty Start Date End Date Vickey Weber MD [facility] [address] [place] [address] PCP - General Emergency Medicine 09/11/23 Gonzalez Beckett MD [address] [place] [address] Assigned Surgical Provider 10/03/23 Herman Keller MD [address] [place], [place] [address] Assigned Cancer Care Provider 10/03/23 documented as of this encounter
--- OUTSIDE RECORDS SUMMARY | 2024-02-18 16:47 | XMS_ITS | Encounter Summary ---
Author Organization [facility] Address [address] [place] [address] Care Team Providers Care Violin Mechanic Name Role Phone Vickey Weber MD Primary Care Provider Gonzalez Beckett MD Unavailable [phone] Herman Keller MD Unavailable [phone] Reason for Visit * Reason Onset Date Comments Colonoscopy 01/15/2024 Encounter Details Date Type Department Care Team (Late st Contact Info) Description 01/15/2024 Telephone [facility] [address] 4[address] [place] [address] Sharri Redmond Colonoscopy Social History Tobacco Use Types Packs/Day Years Used Date Smoking Tobacco: Never Smokeless Tobacco: Never Adolescent Education Answer Date Record ed Getting School Help Needed Not on file 09/11 Sex and Gender Information Value Date Recorded Sex Assigned at Not on file Gender Identity Not on file Sexual Orientation Not on file documented as of this encounter Miscellaneous Notes * Telephone Encounter - Sharri Redmond - 01/15/2024 4:22 PM CDT Endoscopy Scheduling Screen Have you had a positive Covid test in the last 14 days? No What is your communication preference for Instructions and/or Bowel Prep? Mail/USPS What insurance is in the chart? Other: [employer]are Ordering/Referring Provider: eczar (If ordering provider performs procedure, schedule with ordering provider unless otherwise instructed. ) BMI: Estimated body mass index is 29.32 kg/m?? as calculated from the following: Height as of 12/22/23: 1.695 m (5' 6.75). Weight as of 12/22/23: 84.3 kg (185 lb 12.8 oz). Sedation Ordered moderate sedation. If patient BMI > 50 do not schedule in [facility]. If patient BMI > 45 do not schedule at [facility]. Are you taking methadone or Suboxone? No Have you had difficulties, pain, or discomfort during past endoscopy procedures? No 1st endo Are you taking any prescription medications for pain 3 or more times per week? NO, No user experience researcher required. Do you have a history of malignant hyperthermia? No (Females) Are you currently ? Have you been diagnosed or told you have pulmonary hypertension? No Do you have an LVAD? No Have you been told you have moderate to severe sleep apnea? Yes (lead athlete required for scheduling unless scheduling in Hospital.) mouth device Have you been told you have COPD, asthma, or any other lung disease? No Do you have any heart conditions? No Have you ever had or are you waiting for an organ transplant? No. Continue scheduling, no site restrictions. Have you had a stroke or transient ischemic attack (TIA aka mini stroke in the last 6 months? No Have you been diagnosed with or been told you have cirrhosis of the liver? No Are you currently on dialysis? No Do you need assistance transferring? No BMI: Estimated body mass index is 29.32 kg/m?? as calculated from the following: Height as of 12/22/23: 1.695 m (5' 6.75). Weight as of 12/22/23: 84.3 kg (185 lb 12.8 oz). Is patients BMI > 40 and scheduling location [facility]? No Do you take an injectable medication for weight loss or diabetes (excluding insulin)? No Do you take the medication Naltrexone? No Do you take blood thinners? No Prep Are you currently on dialysis or do you have chronic kidney disease? No Do you have a diagnosis of diabetes? No Do you have a diagnosis of cystic fibrosis (CF)? No On a regular basis do you go 3 -5 days between bowel movements? No BMI > 40? No Preferred Pharmacy: [id number] - [place], [place] - [address] [facility] OF & [facility] [id number] Final Scheduling Details Procedure scheduled Colonoscopy Surgeon: HANNAH Date of procedure: 04/20/24 (pt has complex travel schedule, 1st date that worked is further out) Pre-OP / PAC: No - Not required for this site. Location SH - Per exclusion criteria. Sedation Moderate Sedation - Per order. Patient Reminders: You will receive a call from a Nurse to review instructions and health history. This assessment must be completed prior to your procedure. Failure to complete the Nurse assessment may result in the procedure being cancelled. On the day of your procedure, please designate an adult(s) who can drive you home stay with you forthe next 24 hours. The medicines used in the exam will make you sleepy. You will not be able to drive. You cannot take public transportation, ride share services, or non-medical taxi service without a responsible caregiver. Medical transport services are allowed with the requirement that a responsiblecaregiver will receive you at your destination. We require that drivers and caregivers are confirmed prior to your procedure. documented in this encounter Plan of Treatment Upcoming Encounters Date Type Department Care Team (Late st Contact Info) Description 04/20/2024 8:00 AM CDT Hospital Encounter [facility] Endoscopy [address] [phone] Murphy Otoole MD [facility] [address] [facility] [address] [place] [address] 04/20/2024 8:00 AM CDT - 04/20/2024 8:30 AM CDT Surgery [facility] Endoscopy [address] [phone] Murphy Otoole MD [facility] [address] [facility] [address] [facility] [place] [address] Colonoscopy 08/23/2024 12:00 PM ASSEMBLER RUBBER FOOTWEAR Appointment [facility] [address] [place] [address], [address] [phone] Herman Keller MD [address] [place] [address] 08/27/2024 10:00 AM ASSEMBLER RUBBER FOOTWEAR Oncology Visit [facility] [address], [address] [address] [phone] Herman Keller MD [address] [place] [address] Scheduled Procedures Name Priority Associated Diagnoses Date/Ti me COLONOSCOPY Malignant neoplasm of upper-inner quadrant of right breast in female, estrogen receptor negative (H) 04/20/2024 8:00 AM CDT documented as of this encounter Visit Diagnoses Not on filedocumented in this encounter Care Teams Violin Mechanic Relationship Specialty Start Date End Date Vickey Weber MD [facility] [address] [place] [address] PCP - General Emergency Medicine 09/11/23 Gonzalez Beckett MD [address] [address] Assigned Surgical Provider 10/03/23 Herman Keller MD [address] [place] [address] Assigned Cancer Care Provider 10/03/23 documented as of this encounter
--- OUTSIDE RECORDS SUMMARY | 2024-02-18 16:47 | XMS_ITS | Encounter Summary ---
Author Organization [facility] Address [address] [place] [address] Care Team Providers Care Guest Room Attendant Name Role Phone Vickey Weber MD Primary Care Provider Gonzalez Beckett MD Unavailable [phone] Herman Keller MD Unavailable [phone] Reason for Referral * Consultation (Routine: Next available opening) - Pending Review Specialty Diagnoses / Procedures Referred By Contac t Referred To Contact Diagnoses Malignant neoplasm of upper-inner quadrant of right breast in female, estrogen receptor positive (H) Herman Keller MD [address] [place] [address] Referral ID Status Reason Start Date Expiration Date V isits Requested Visits Authorized [id number] Pending Review 12/22/2023 12/21/2024 1 1 Question Answer Service: Screening Sedation Concerns: No medical conditions affecting sedation Sedation Type: Moderate/Conscious Sedation Preferred Location: [facility] Scheduling Instructions: [facility] will call you to coordinate your care as prescribed by the provider. If you don? t hear from a reimbursement representative within 2 business days, please call . Comments Please be aware that coverage of these services is subject to the terms and limitations of your health insurance plan. Call member services at your health plan with any benefit or coverage questions. [facility] will call you to coordinate your care as prescribed by the provider. If you don? t hear from a reimbursement representative within 2 business days, please call . * Diagnostic Imaging Mammo (Routine) - Pending Review Specialty Diagnoses / Procedures Referred By Belen t Referred To Contact Radiology. 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 Encounter Details Date Type Department Care Team (Latest Contact Info) Description 12/22/2023 8:20 AM CDT Oncology Visit [place] [address], [place] [address] [facility] [place] [address] Herman Keller MD [address] [place] [address] Malignant neoplasm of upper-inner quadrant of right breast in female, estrogen receptor positive (H) (Primary Dx) Social History Tobacco Use Types Packs/Day Years [...] Sign Reading Time Taken Comments Blood Pressure 120/87 12/22/2023 8:42 AM CDT Pulse 80 12/22/2023 8:42 AM CDT Temperature - - Respiratory Rate 16 12/22/2023 8:42 AM CDT Oxygen Saturation 100% 12/22/2023 8:42 AM CDT Inhaled Oxygen Concentration - - Weight 84.3 kg (185 lb 12.8 oz) 12/22/2023 8:42 AM CDT Height 169.5 cm (5' 6.75) 12/22/2023 8:42 AM CD T Body Mass Index 29.32 12/22/2023 8:42 AM CDT documented in this encounter Progress Notes * Latanya Watkins MA - 12/22/2023 8:20 AM CDT Oncology Rooming Note December 22, 2023 8:43 AM Valeria Menon is a 53 year old female who presents for: Chief Complaint Patient presents with Oncology Clinic Visit Ductal carcinoma in situ (DCIS) of left breast Initial Vitals: BP 120/87 Pulse 80 Resp 16 Ht 1.695 m (5' 6.75) Wt 84.3 kg (185 lb 12.8 oz) SpO2 100% BMI 29.32 kg/m?? Estimated body mass index is 29.32 kg/m?? as calculated from the following: Height as of this encounter: 1.695 m (5' 6.75). Weight as of this encounter: 84.3 kg (185 lb 12.8 oz). Body surface area is 1.99 meters squared. No Pain (0) Comment: Data Unavailable No LMP recorded. Allergies reviewed: Yes Medications reviewed: Yes Medications: Medication refills not needed today. [facility] into [id number] [facility] Frailty Screening: Is the patient here for a new oncology consult visit in cancer care? 2. No Clinical concerns: Valeria is struggling on Tamoxifen. She has up to 4 hot flashes in one hour and extreme fatigue. Latanya Watkins MA * Herman Keller MD - 12/22/2023 8:20 AM CDT [facility] Hematology/Oncology return patient note Today's Date: 12/22/2023 Reason for Consult: Breast cancer HISTORY OF PRESENT ILLNESS: Valeria is a very pleasant 53-year-old female who Presented with a new diagnosis of DCIS in the left breast. She underwent screening mammogram in July which was unremarkable. She underwent a bilateral breast lift with some tissue removal and unexpectedly was found to have a 4 mm focus of DCIS in the left breast. The DCIS was grade 1 ER/GA strongly positive. Patient has an IUD in place she thinks its Mirena IUD. She had the Mirena IUD removed and now has copper IUD Interval history: Valeria returns for follow-up. Overall she feels terrible on the tamoxifen muscle aches. REVIEW OF SYSTEMS: 14 point ROS was reviewed and is negative other than as noted above in HPI. HOME MEDICATIONS: Current Outpatient Medications Medication Sig Dispense Refill amLODIPine (NORVASC) 10 MG tablet Take 10 mg by mouth aspirin (ASA) 81 MG chewable tablet Take 81 mg by mouth daily carvedilol (COREG) 12.5 MG tablet Take 1 tablet by mouth 2 times daily (with meals) cholecalciferol (VITAMIN D3) 25 mcg (1000 units) capsule Take 2 capsules by mouth daily escitalopram (LEXAPRO) 10 MG tablet Take 10 mg by mouth daily LANsoprazole (PREVACID) [address] capsule TAKE 1 CAPSULE BY MOUTH DAILY FOR GERD losartan (COZAAR) 50 MG tablet Take 50 mg by mouth magnesium 250 MG tablet Take 1 tablet by mouth daily multivitamin w/minerals (MULTI-VITAMIN) tablet Take 1 tablet by mouth daily tamoxifen (NOLVADEX) 20 MG tablet Take 0.5 tablets (10 mg) by mouth See Admin Instructions 10 mg every other day 90 tablet 3 triamterene-HCTZ (DYAZIDE) 37.5-25 MG capsule TAKE 1 CAPSULE BY MOUTH EVERY DAY FOR HIGH BLOOD PRESSURE ALLERGIES: Allergies Allergen Reactions Terbinafine Hives PAST MEDICAL HISTORY: Hypertension GERD PAST SURGICAL HISTORY: S/p bilateral breast reduction SOCIAL HISTORY: Social History Socioeconomic History Marital status: Spouse name: Not on file Number of children: Not on file Years of education: Not on file Highest education level: Not on file Occupational History Not on file Tobacco Use Smoking status: Never Smokeless tobacco: Never Substance and Sexual Activity Alcohol use: Not on file Drug use: Not on file Sexual activity: Not on file Other Topics Concern Not on file Social History Narrative Not on file Social Determinants of Health Financial Resource Strain: Not on file Food Insecurity: Not on file Transportation Needs: Not on file Physical Activity: Not on file Stress: Not on file Social Connections: Unknown (02/03/2023) Received from [facility] Social Connections Frequency of Communication with Friends and Family: Not on file Interpersonal Safety: Not on file Housing Stability: Not on file FAMILY HISTORY: No family history on file. PHYSICAL EXAM: Vital signs: BP 120/87 Pulse 80 Resp 16 Ht 1.695 m (5' 6.75) Wt 84.3 kg (185 lb 12.8 oz) SpO2 100% BMI 29.32 kg/m?? ECO GENERAL/CONSTITUTIONAL: No acute distress. EYES: Pupils are equal, round, and react to light and accommodation. Extraocular movements intact. No scleral icterus. ENT/MOUTH: Neck supple. Oropharynx clear, no mucositis. LYMPH: No anterior cervical, posterior cervical, supraclavicular, axillary or inguinal adenopathy. RESPIRATORY: Clear to auscultation bilaterally. No crackles or wheezing. CARDIOVASCULAR: Regular rate and rhythm without murmurs, gallops, or rubs. GASTROINTESTINAL: No hepatosplenomegaly, masses, or tenderness. The patient has normal bowel sounds. No guarding. No distention. MUSCULOSKELETAL: Warm and well-perfused, no cyanosis, clubbing, or edema. NEUROLOGIC: Cranial nerves II-XII are intact. Alert, oriented, answers questions appropriately. INTEGUMENTARY: No rashes or jaundice. GAIT: Steady, does not use assistive device Bilateral breast exam is normal status post breast lift scars LABS: None PATHOLOGY: DCIS grade 1 ER/GA positive IMAGING: Noted as per HPI ASSESSMENT/PLAN: Valeria is a very pleasant 53-year-old perimenopausal female who has a history of DCIS grade 1 status post bilateral breast reduction DCIS on the left left on tamoxifen every other day Valeria is not tolerating tamoxifen well she has a lot of hot flashes and leg cramps and feels betteron the drug DCIS ER positive: -Discontinue tamoxifen after discussion she is not tolerating it well -mammogram yearly due in July 2024 see me after that. MRI 6 months later Due for a colonoscopy referral in Total time spent on day of visit, including review of tests, obtaining/reviewing separately obtained history, ordering medications/tests/procedures, communicating with PCP/consultants, and documenting in electronic medical record:40 minutes Herman Keller MD Hematology/Oncology [facility] documented in this encounter Plan of Treatment Upcoming Encounters Date Type Department Care Team (Late st Contact Info) Description 04/20/2024 8:00 AM CDT Hospital Encounter [facility] Endoscopy [address] [phone] Murphy Otoole MD [facility] [address] [facility] [address] [place] [address] 04/20/2024 8:00 AM CDT - 04/20/2024 8:30 AM CDT Surgery [facility]oscopy [address] [phone] Murphy Otoole MD [facility] [address] [facility] [address] [place] [address] Colonoscopy 08/23/2024 12:00 PM PAPER AND PRINTS RESTORER Appointment [facility] [place] [address] [facility], [address] [place] [phone] Herman Keller MD [address] [place], [place] [address] 08/27/2024 10:00 AM PAPER AND PRINTS RESTORER Oncology Visit [facility] [place] [address] [facility] [address] [facility] [place] [phone] Herman Keller MD [address] [place] [address] Scheduled Orders Name Type Priority Associated Diagnoses Orde r Schedule MA Screen Bilateral w/Mike Imaging Routine Malignant neoplasm of upper-inner quadrant of right breast in female, estrogen receptor positive (H) Expected: 08/03/2024 (Approximate), Expires: 12/21/2024 Scheduled Procedures Name Priority Associated Diagnoses Date/Ti me COLONOSCOPY Malignant neoplasm of upper-inner quadrant of right breast in female, estrogen receptor negative (H) 04/20/2024 8:00 AM CDT Scheduled Referrals Name Type Priority Associated Diagnoses Order Schedule Colonoscopy Screening Caustic Preparer Referral Referral Routine: Next available opening Malignant neoplasm of upper-inner quadrant of right breast in female, estrogen receptor positive (H) Expected: 12/22/2023 (Approximate), Expires: 12/21/2024 documented as of this encounter Visit Diagnoses Diagnosis Malignant neoplasm of upper-inner quadrant of right breast in female, estrogen receptor positive (H)- Primary Malignant neoplasm of upper-inner quadrant of right breast in female, estrogen receptor negative (H) documented in this encounter Care Teams Guest Room Attendant Relationship Specialty Start Date End Date Vickey Weber MD [facility] [address] [place] [address] PCP - General Emergency Medicine 09/11/23 Gonzalez Beckett MD [address] [facility] [address] [place] [address] Assigned Surgical Provider 10/03/23 Herman Keller MD [address] [place] [address] Assigned Cancer Care Provider 10/03/23 documented as of this encounter
--- OUTSIDE RECORDS SUMMARY | 2024-02-18 16:47 | XMS_ITS | Clinical Summary ---
Author Organization [facility] Address [address] [place] [address] Care Team Providers Care Training Consultant Name Role Phone Vickey Weber MD Primary Care Provider Gonzalez Beckett MD Unavailable [phone] Herman Keller MD Unavailable [phone] Allergies Active Allergy Reactions Criticality Noted Date Comments Terbinafine Hives 07/06/2014 Medications Medication Sig Dispensed Refills Start Date End Date Status carvedilol (COREG) 12.5 MG tablet Take 1 tablet by mouth 2 times daily (with meals) 03/19/2023 Active escitalopram (LEXAPRO) 10 MG tablet Take 10 mg by mouth daily Active LANsoprazole (PREVACID) [address] capsule TAKE 1 CAPSULE BY MOUTH DAILY FOR GERD Active losartan (COZAAR) 50 MG tablet Take 50 mg by mouth 04/09/2022 Act dylon triamterene-HCTZ (DYAZIDE) 37.5-25 MG capsule TAKE 1 CAPSULE BY MOUTH EVERY DAY FOR HIGH BLOOD PRESSURE Active tamoxifen (NOLVADEX) 20 MG tabletIndications: Malignant neoplasm of upper-inner quadrant of right breast in female, estrogen receptor positive (H) Take 0.5 tablets (10 mg) by mouth See Admin Instructions 10 mg every other day 90 tablet 3 09/16/2023 Active amLODIPine (NORVASC) 10 MG tablet Take 10 mg by mouth 06/19/2022 Activ e magnesium 250 MG tablet Take 1 tablet by mouth daily Active cholecalciferol (VITAMIN D3) 25 mcg (1000 units) capsule Take 2 capsules by mouth daily Active aspirin (ASA) 81 MG chewable tablet Take 81 mg by mouth daily Active multivitamin w/minerals (MULTI-VITAMIN) tablet Take 1 tablet by mouth daily Active Active Problems Problem Noted Date Diagnosed Date Ductal carcinoma in situ (DCIS) of left breast 0 09/16/2023 Encounters Date Type Department Care Team Description 01/15/2024 Telephone [facility] [address] 4th [place] [address] Ruy Sharri Colonoscopy 12/22/2023 8:20 AM CDT Oncology Visit [facility] [address], [address] [facility] [place] [phone] Herman Keller MD Malignant neoplasm of upper-inner quadrant of right breast in female, estrogen receptor positive (H) (Primary Dx) 12/22/2023 Travel 12/09/2023 Telephone [facility] [address], [address] [facility] [place] [place] [phone] Lu Sommer RN Clinic Care Coordination - Follow-up (Exam with Dr. Keller ) 12/08/2023 Telephone [facility] [place] [address] [place] [address] Gonzalez Beckett MD MRI Results (Dr. Beckett called patient to inform her of the MRI results and plan to have her see Radiation Oncology for Consultation) 12/04/2023 1:45 PM CDT Ancillary Procedure [facility] [address] [place] [phone] Gonzalez Beckett MD Ductal carcinoma in situ (DCIS) of left breast 12/04/2023 Travel from Last 3 Months Social History Tobacco Use Types Packs/Day Years Used Date Smoking Tobacco: Never Smokeless Tobacco: Never Tobacco Cessation:Counseling Given: Yes Adolescent Education Answer Date Record ed Getting [...] Mass Index 29.32 12/22/2023 8:42 AM CDT Plan of Treatment Upcoming Encounters Date Type Department Care Team (Late st Contact Info) Description 04/20/2024 8:00 AM CDT Hospital Encounter [facility] Endoscopy [address] [phone] Murphy Otoole MD [facility] [address] [facility] [address] [place] [address] 04/20/2024 8:00 AM CDT - 04/20/2024 8:[address] [facility] Endoscopy [address] [phone] Murphy Otoole MD [facility] [address] [facility] [address] [place] [address] Colonoscopy 08/23/2024 12:00 PM INSTRUCTOR MILITARY SCIENCE Appointment [facility] Breast [facility] [address] [facility], [address] [phone] Herman Keller MD [address] [place] [id number] 08/27/2024 10:00 AM INSTRUCTOR MILITARY SCIENCE Oncology Visit [facility] Cancer [facility] [address], [address] [facility] [phone] Herman Keller MD [address] [place] [address] Scheduled Procedures Name Priority Associated Diagnoses Date/Ti me COLONOSCOPY Malignant neoplasm of upper-inner quadrant of right breast in female, estrogen receptor negative (H) 04/20/2024 8:00 AM CDT Health Maintenance Due Date Last Done Comments ADVANCE CARE PLANNING 1971 ANNUAL REVIEW OF HM ORDERS 1971 CT COLONOGRAPHY 1971 FIT 1971 FLEX SIG 1971 GLUCOSE 1971 YEARLY PREVENTIVE VISIT 1971 sDNA (Cologuard) 1971 Pneumococcal Vaccine: Pediatrics (0 to 5 Years) and At-Risk Patients (6 to 64 Years) (1 of 2 - PCV) 1977 COLONOSCOPY 1981 COLORECTAL CANCER SCREENING 1981 HIV SCREENING 1986 HEPATITIS C SCREENING 1989 ZOSTER IMMUNIZATION (1 of 2) 1990 HEPATITIS B IMMUNIZATION (3 of 3 - 19+ 3-dose series) 03/30/1994 10/28/1993, 09/27/1993 LIPID 2011 COVID-19 Vaccine (2022- season) 2023 02/26/2022, 05/29/2021, 11/04/2020, Additional history exists PHQ-2 (once per calendar year) 2023 INFLUENZA VACCINE (#1) 2024 PAP 08/17/2024 08/17/2021 MAMMO SCREENING 08/20/2025 08/20/2023, 07/23, 07/05/2021, Additional history exists DTAP/TDAP/TD IMMUNIZATION (3 - Td or Tdap) 08/19/2033 08/19/2023, 09/29/2007 HPV IMMUNIZATION Aged Out No longer e ligible based on patient's age to complete this topic IPV IMMUNIZATION Aged Out No longer e ligible based on patient's age to complete this topic MENINGITIS IMMUNIZATION Aged Out No l onger eligible based on patient's age to complete this topic RSV MONOCLONAL ANTIBODY Aged Out No l onger eligible based on patient's age to complete this topic Procedures Procedure Name Priority Date/Time Associated Diagnosis Comments MR BREAST BILATERAL W/O & W CONTRAST Routine 12/04/2023 2:16 PM CDT Ductal carcinoma in situ (DCIS) of left breast MA SCREENING BILATERAL W/ ARGENIS Routine 08/20/2023 8:18 AM INSTRUCTOR MILITARY SCIENCE from Last 3 Months or Most Recently Relevant to Health Maintenance Results * (ABNORMAL) MR Breast Bilateral w/o & w Contrast (12/04/2023 2:16 PM CDT) Anatomical Region Laterality Modality Breast, SUBRAD BREAST, UMP BREAST, RAD MR Bilate ral Magnetic Resonance 12/04/2023 2:16 PM CDT Impressions 12/05/2023 3:10 PM CDT IMPRESSION: 1. No suspicious enhancement in the left breast to correlate with this patient's history of ductal carcinoma in situ. 2. No suspicious enhancement in the right breast. 3. Changes of bilateral reduction mammoplasty. Right Breast ACR BI-RADS Category: 2 - Benign Finding(s). Left Breast ACR BI-RADS Category: 6 - Known Biopsy-Proven Malignancy-Appropriate Action Should Be Taken. RECOMMENDATION: Continued surgical consultation. Narrative 12/05/2023 3:10 PM CDT EXAM: Bilateral Breast MRI with and without contrast, and computer aided kinetic analysis. LOCATION: [facility] DATE: 12/04/2023 HISTORY/INDICATION: Patient has a history of a tiny focus of DCIS in the left breast detected on pathology following breast reduction. COMPARISON: Screening mammogram 08/20/2023, diagnostic mammogram 07/05/2021, ultrasound 07/05/2021 TECHNIQUE: Multiplanar, multisequence imaging performed prior to contrast administration and at multiple time points after contrast administration. Post-processing including subtractions, MIPs and color encoding of post contrast dynamic acquisitions. IV contrast: 7.5ml Gadavist SEDATION: None FINDINGS: Right Breast: Breast composition: Scattered fibroglandular tissue Background parenchymal enhancement: Mild No concerning areas of enhancement. ??Changes of reduction mammoplasty. Right Axilla: No lymphadenopathy. Right Internal Mammary Chain: No lymphadenopathy. Left Breast: Breast composition: Scattered fibroglandular tissue Background parenchymal enhancement: Mild No concerning areas of enhancement. ??Changes of reduction mammoplasty. Left Axilla: No lymphadenopathy. Left Internal Mammary Chain: No lymphadenopathy. Gonzalez Beckett MD IMG MRI ORDERABL ES from Last 3 Months or Most Recently Relevant to Health Maintenance Care Teams Training Consultant Relationship Specialty Start Date End Date Vickey Weber MD [facility] [address] [place] [address] PCP - General Emergency Medicine 09/11/23 Gonzalez Beckett MD [address] [facility] [address] [place] [address] Assigned Surgical Provider 10/03/23 Herman Keller MD [address] [place] [address] Assigned Cancer Care Provider 10/03/23
--- OUTSIDE RECORDS SUMMARY | 2024-02-18 16:47 | XMS_ITS | Clinical Summary ---
Author Organization [employer] [facility] Address [place], [place] [address] Care Team Providers Care Insecticide Mixer Name Role Phone Vickey Weber MD Primary Care Provider Vickey Weber MD Unavailable [phone] Allergies Active Allergy Reactions Criticality Noted Date [...] Take 10 mg by mouth once daily. 06/19/2022 Active escitalopram oxalate (LEXAPRO) 10 mg tablet Take 10 mg by mouth once daily. Active lansoprazole (PREVACID) 30 mg capsule TAKE 1 CAPSULE BY MOUTH DAILY FOR GERD 12/20/2022 Active losartan (COZAAR) 50 mg tablet Take 50 mg by mouth once daily. Active Active Problems Problem Noted Date Diagnosed [...] Outcome GA Total Labor Labor/2nd/3rd Weight Sex Type Anes PTL Ivet A1 A5 Name Clin Term Living SAB SAB Last Filed Vital Signs Vital Sign Reading Time Taken Comments Blood Pressure 129/85 02/03/2023 11:04 AM CDT Pulse 70 02/03/2023 11:04 AM CDT Temperature 36.8 ??C (98.3 ??F) 02/03/2023 1 1:04 AM CDT Respiratory Rate - - Oxygen Saturation 100% 02/03/2023 11: 04 AM CDT Inhaled Oxygen Concentration - - Weight 74.8 kg (164 lb 12.8 oz) 07/25/2015 8:47 AM WIRE HANGER Height - - Body Mass Index - - Plan of Treatment Health Maintenance Due Date Last Done Comments Tdap 1982 Depression screening for age 12+ 1983 HIV for age 15-65 1986 BMI (ht and wt on same day) for age 18+ 1989 Hepatitis C screening for age 18-79 1989 Tetanus booster 1991 Colonoscopy through age 75 2016 Lipids for age 45-75 2016 Zoster (shingles) series for age 50+ (1 of 2) 2021 COVID-19 vaccine series ( - 2022- season) 2023 Influenza for age 50-64 03/21/2024 Pap test for age 21-65 08/17/2024 2, 08/17/2021, 10/11/2013, Additional history exists Mammogram for age 45-75 08/20/2024 08/20/2023 Pneumococcal series for age 6-64 Aged Out No longer eligible based on patient's age to complete this topic Procedures Procedure Name Priority Date/Time Associated Diagnosis Comments XR MAMMO ARGENIS BILAT SCREEN Routine 08/20/2023 8:18 AM WIRE HANGER Visit for screening mammogram HPV THIN PREP Routine 08/17/2021 12:00 PM WIRE HANGER from Last 3 Months or Most Recently Relevant to Health Maintenance Results * XR MAMMO ARGENIS BILAT SCREEN (08/20/2023 8:18 AM WIRE HANGER) Anatomical Region Laterality Modality BREASTS, Breast Left, Breast Right Bilateral Mammography Impressions 08/20/2023 2:42 PM WIRE HANGER ??There is no radiographic evidence for malignancy. ??Recommend annual mammograms. MAMMOGRAM ASSESSMENT: ??ACR 1 Negative PATIENTS: You will also receive a letter with your examination results in an easy to read format. ??If you have questions about your results, please contact your referring provider. Narrative 08/20/2023 2:42 PM WIRE HANGER For Patients: As a result of the Cures Act, medical imaging exams and procedure reports are released immediately into your electronic medical record. You may view this report before your referring provider. If you have questions, please contact your health care provider. XR MAMMO ARGENIS BILAT SCREEN [[id number]] CLINICAL HISTORY: ??This is an asymptomatic 53 [...] of architectural distortion. Matt Madden MD MAMMO * HPV HIGH RISK (08/17/2021 12:00 PM WIRE HANGER) TYPE 16 Negative Negative 08/23/2021 11:45 AM WIRE HANGER [facility] TYPE 18 Negative Negative 08/23/2021 11:45 AM WIRE HANGER [facility] OTHER HIGH RISK TYPES Negative Negative 08/23/2021 11:45 AM WIRE HANGER [facility] [employer] TRAL LABORATORY Other (Other) Client Collect / Unknown 08/17/2021 12:00 PM WIRE HANGER 08/22/2021 9:01 AM WIRE HANGER Narrative [facility]-CENTRAL LABORATORY - 08/23/2021 11:45 AM WIRE HANGER HPV types 16, 18, 31, 33, 35, 39, 45, 51, 52, 56, 58, 59, 66 and 68 DNA were undetectable or below the pre-set threshold. Methodology: Didi Alysia 4800 HPV Test Cristine Millan MD MICROBIOLOGY [facility]TRAL LABORATORY [address] [place] [address], from Last 3 Months or Most Recently Relevant to Health Maintenance Care Teams Insecticide Mixer Relationship Specialty Start Date End Date Vickey Weber MD [address] [place] [address] PCP - General Internal Medicine 01/20/23 Vickey Weber MD [address] [place] [address] 07/22/08
--- OUTSIDE RECORDS SUMMARY | 2024-02-18 16:47 | XMS_ITS | Referral Summary ---
Author Organization [facility] Address [address] [place] [address]. [place] [address] Care Team Providers Care Parking Lot Attendant Name Role Phone Vickey Weber MD Primary Care Provider Gonzalez Beckett MD Unavailable [phone] Herman Keller MD Unavailable [phone] Encounters Date Type Department Care Team Description 01/15/2024 Telephone [facility] Gastroenterology Clinic [address] 4th [place] [address] Sharri Redmond Colonoscopy 12/22/2023 Travel 12/22/2023 8:20 AM CDT Oncology Visit [facility] [address], [address] [facility] [place] [phone] Herman Keller MD Malignant neoplasm of upper-inner quadrant of right breast in female, estrogen receptor positive (H) (Primary Dx) 12/09/2023 Telephone [facility] [address], [address] [facility] [place] [phone] Lu Sommer RN Clinic Care Coordination - Follow-up (Exam with Dr. Keller ) 12/08/2023 Telephone [facility] Surgery [facility] [place] [address] [place] [phone] Gonzalez Beckett MD MRI Results (Dr. Galle called patient to inform her of the MRI results and plan to have her see Radiation Oncology for Consultation) 12/04/2023 Travel 12/04/2023 1:45 PM CDT Ancillary Procedure [address] [address] Gonzalez Beckett MD Ductal carcinoma in situ (DCIS) of left breast from Last 3 Months Allergies Active Allergy Reactions Criticality Noted Date [...] situ (DCIS) of left breast 0 09/16/2023 Social History Tobacco Use Types Packs/Day Years [...] Description 04/20/2024 8:00 AM CDT Hospital Encounter [facility] Endoscopy [address] [phone] Murphy Otoole MD [facility] [address] [facility] [address] [place] [address] 04/20/2024 8:00 AM CDT - 04/20/2024 8:30 AM CDT Surgery [facility] Endoscopy [address] [phone] Murphy Otoole MD [facility] [address] [facility] [address] [place] [address] Colonoscopy 08/23/2024 12:00 PM ESCROW CLERK Appointment [facility] Breast [facility] [address] [facility], [address] [place] [phone] Herman Keller MD [address] [place] [address] 08/27/2024 10:00 AM ESCROW CLERK Oncology Visit [facility] Cancer [facility] [address], [address] [facility] [place] [phone] Herman Keller MD [address] [place] [address] Scheduled Procedures Name Priority Associated Diagnoses Date/Ti me COLONOSCOPY Malignant neoplasm of upper-inner quadrant of right breast in female, estrogen receptor negative (H) 04/20/2024 8:00 AM CDT Procedures Procedure Name Priority Date/Time Associated Diagnosis Comments MR BREAST BILATERAL W/O & W CONTRAST Routine 12/04/2023 2:16 PM CDT Ductal carcinoma in situ (DCIS) of left breast MA SCREENING BILATERAL W/ ARGENIS Routine 08/20/2023 8:18 AM ESCROW CLERK from Last 3 Months or Most Recently [...] contrast, and computer aided kinetic analysis. LOCATION: [facility] DATE: 12/04/2023 HISTORY/INDICATION: Patient has a history [...] Recently Relevant to Health Maintenance Care Teams Parking Lot Attendant Relationship Specialty Start Date End Date Vickey Weber MD [facility] [address] [place] [address] PCP - General Emergency Medicine 09/11/23 Gonzalez Beckett MD [address] [facility] [place] [address] [id number] Assigned Surgical Provider 10/03/23 Herman Keller MD [address] [place], [place] [address] Assigned Cancer Care Provider 10/03/23
--- OUTSIDE RECORDS SUMMARY | 2024-02-18 16:48 | XMS_ITS | Encounter Summary ---
Author Organization [facility] Address [facility] [place] [address] Care Team Providers Care Unit Clerk Name Role Phone Vickey Weber MD Primary Care Provider Gonzalez Beckett MD Unavailable [phone] Herman Keller MD Unavailable [phone] Reason for Visit * Reason Onset Date Comments MRI Results 12/08/2023 Dr. Beckett called patient to inform her of the MRI results and plan to have her see Radiation Oncology for Consultation Encounter Details Date Type Department Care Team (Late st Contact Info) Description 12/08/2023 Telephone [facility] Surgery Clinic [place] [address] [place] [address] Gonzalez Beckett MD [address] [facility] [address] [place], [place] [phone] MRI Results (Dr. Beckett called patient to inform her of the MRI results and plan to have her see Radiation Oncology for Consultation) Social History Tobacco Use Types Packs/Day Years Used Date Smoking Tobacco: Never Smokeless Tobacco: Never Adolescent Education Answer Date Record ed Getting School Help Needed Not on file 09/11 Sex and Gender Information Value Date Recorded Sex Assigned at Not on file Gender Identity Not on file Sexual Orientation Not on file documented as of this encounter Miscellaneous Notes * Telephone Encounter - Julia Farrell RN - 12/09/2023 12:46 PM CDT Patient called me back and I informed her of appointment with Dr. Andrew on 12/12/23. Patient has the clinic contact information and directions. Valeria also has my contact information if needed. Patricia Farrell RN, BSN * Telephone Encounter - Julia Farrell RN - 12/09/2023 11:18 AM CDT I called Valeria and left her a voicemail message to call me back. I am reaching out to patient to inform of Radiation Oncology Consult with Dr Jasbir Andrew at [facility] on 12/12/23 at 2:00 p.m. Patricia Farrell RN, BSN\ * Telephone Encounter - Julia Farrell RN - 12/09/2023 9:38 AM CDT Patient called me back and prefers to drive to [facility] to see Dr. [place] Andrew for her Radiation Oncology Consultation. Informed patient I will call Dr. Andrew office today to schedule her appointment and then call herback with the appointment details and directions. Patient verbalizes understanding and agrees with the plan of care. KVNG CarpenterN Breast Nurse Supervisor [facility] [place] [phone] * Telephone Encounter - Julia Farrell RN - 12/09/2023 9:25 AM CDT I called Valeria and left her a voicemail message asking if she could return my call when she is available. Awaiting a return call from patient to ask about getting her scheduled for Radiation Oncology consult per Dr. Beckett's request. Patient lives in [place] and I am questioning what location she would like to go for her Radiation. KVNG CarpenterN Breast Nurse Supervisor [facility] [place] [phone] * Telephone Encounter - Trina Sifuentes - 12/08/2023 3:52 PM CDT Name of caller: Patient Reason for Call: Patient would like to review her MRI results from 12/04/2023. She also wants to discuss what the plan is from here. Please call renny as she would like to move forward renny. Surgeon: Gonzalez Beckett MD Recent Surgery: No If yes, when & what type: N/A Best phone number to reach pt at is: [phone] Ok to leave a message with medical info? Yes. documented in this encounter Plan of Treatment Upcoming Encounters Date Type Department Care Team (Late st Contact Info) Description 04/20/2024 8:00 AM CDT Hospital Encounter [facility] Endoscopy [address] [phone] Murphy Otoole MD [facility] [address] [address] 04/20/2024 8:00 AM CDT - 04/20/2024 8:30 AM CDT Surgery [facility] Endoscopy [address] [phone] Murphy Otoole MD [facility] [address] [facility] [address] [place] [address] Colonoscopy 08/23/2024 12:00 PM FREEZER TUNNEL OPERATOR Appointment [facility] Breast Center [address] [facility], [address] [place] [phone] Herman Keller MD [address] [place] [address] 08/27/2024 10:00 AM FREEZER TUNNEL OPERATOR Oncology Visit [facility] [place] [address] [facility] [place] [address] [phone] Herman Keller MD [address] [place] [address] Scheduled Procedures Name Priority Associated Diagnoses Date/Ti me COLONOSCOPY Malignant neoplasm of upper-inner quadrant of right breast in female, estrogen receptor negative (H) 04/20/2024 8:00 AM CDT documented as of this encounter Visit Diagnoses Not on filedocumented in this encounter Care Teams Unit Clerk Relationship Specialty Start Date End Date Vickey Weber MD [facility] [address] [place] [address] PCP - General Emergency Medicine 09/11/23 Gonzalez Beckett MD [address] [place] [address] Assigned Surgical Provider 10/03/23 Herman Keller MD [address] [place] [address] Assigned Cancer Care Provider 10/03/23 documented as of this encounter
--- OUTSIDE RECORDS SUMMARY | 2024-02-18 16:48 | XMS_ITS | Encounter Summary ---
Author Organization [place] Address [address] [place] [address]. [place] [address] Care Team Providers Care Uke Driver Name Role Phone Vickey Weber MD Primary Care Provider Gonzalez Beckett MD Unavailable [phone] Herman Keller MD Unavailable [phone] Reason for Visit * Diagnostic Imaging MRI (Routine) - Closed Specialty Diagnoses / Procedures Referred By Belen huerta Referred To Contact Radiology. Diagnoses Ductal carcinoma in situ (DCIS) of left breast Procedures MR Breast Bilateral w/o & w Contrast Gonzalez Beckett MD [address] [employer] [place] [address] Referral ID Status Reason Start Date Expiration Date Visits Re quested Visits Authorized [id number] Closed 10/16/2023 10/15/2024 1 1 Encounter Details Date Type Department Care Team (Latest Contact Info) Description 12/04/2023 1:45 PM CDT Ancillary Procedure [facility] [address] [place] [phone] Gonzalez Beckett MD [address] [place] [address] Ductal carcinoma in situ (DCIS) of left breast Social History Tobacco Use Types Packs/Day Years Used Date Smoking Tobacco: Never Smokeless Tobacco: Never Adolescent Education Answer Date Record ed Getting School Help Needed Not on file 09/11 Sex and Gender Information Value Date Recorded Sex Assigned at Not on file Gender Identity Not on file Sexual Orientation Not on file documented as of this encounter Miscellaneous Notes * Result Encounter Note - Gonzalez Beckett MD - 12/04/2023 1:45 PM CDT I have already discussed the results with the patient. Can we help get her set up with radiation oncology? documented in this encounter Plan of Treatment Upcoming Encounters Date Type Department Care Team (Late st Contact Info) Description 04/20/2024 8:00 AM CDT Hospital Encounter [facility] Endoscopy [address] [phone] Murphy Otoole MD [facility] [address] [facility] [address] [place] [address] 04/20/2024 8:00 AM CDT - 04/20/2024 8:30 AM CDT Surgery [facility] [address] [phone] Murphy Otoole MD [facility] [address] [facility] [address] [place] [address] Colonoscopy 08/23/2024 12:00 PM PATCHER HELPER Appointment [facility] Breast [place] [address] [facility], [address] [place] [phone] Herman Keller MD [address] [place], [place] [address] 08/27/2024 10:00 AM PATCHER HELPER Oncology Visit [facility] Cancer [facility] [address], [address] [facility] Medical C[facility] [place] [phone] Herman Keller MD [address] [place] [address] Scheduled Procedures Name Priority Associated Diagnoses Date/Ti me COLONOSCOPY Malignant neoplasm of upper-inner quadrant of right breast in female, estrogen receptor negative (H) 04/20/2024 8:00 AM CDT documented as of this encounter Procedures Procedure Name Priority Date/Time Associated Diagnosis Comments MR BREAST BILATERAL W/O & W CONTRAST Routine 12/04/2023 2:16 PM CDT Ductal carcinoma in situ (DCIS) of left breast documented in this encounter Results * (ABNORMAL) MR Breast Bilateral w/o [...] contrast, and computer aided kinetic analysis. LOCATION: [facility] DATE: 12/04/2023 HISTORY/INDICATION: Patient has a history [...] Gonzalez Beckett MD IMG MRI ORDERABL ES documented in this encounter Visit Diagnoses Diagnosis Ductal carcinoma in situ (DCIS) of left breast Malignant neoplasm of upper-inner quadrant of right breast in female, estrogen receptor negative (H) documented in this encounter Administered Medications Inactive Administered Medications - up to 3 most recent administrations Medication Order MAR Action Action Date Dose Rate Site gadobutrol (GADAVIST) injection 7.5 mL 7.5 mL, Intravenous, ONCE, On Mildred 12/04/23 at 1400, For 1 dose, Supplied by, and administered by MRI. $Given 12/04/2023 1:42 PM CDT 7.5 mLs documented in this encounter Care Teams Uke Driver Relationship Specialty Start Date End Date Vickey Weber MD [facility] [address] [place] [address] PCP - General Emergency Medicine 09/11/23 Gonzalez Beckett MD [address] [facility] [address] [place] [address] Assigned Surgical Provider 10/03/23 Herman Keller MD [address] [place] [address] Assigned Cancer Care Provider 10/03/23 documented as of this encounter
--- OUTSIDE RECORDS SUMMARY | 2024-02-18 16:48 | XMS_ITS | Encounter Summary ---
Author Organization [place] Address [facility]ly [facility] [place] [address] Care Team Providers Care Bus Transportation Manager Name Role Phone Vickey Weber MD Primary Care Provider Gonzalez Beckett MD Unavailable [phone] Herman Keller MD Unavailable [phone] Reason for Visit * Reason Onset Date Comments Clinic Care Coordination - Follow-up 12/09/[address] Keller Encounter Details Date Type Department Care Team (Late st Contact Info) Description 12/09/2023 Telephone [facility] [address], [address] [facility] [place] [phone] Lu Sommer, RN Clinic Care Coordination - Follow-up (Exam with Dr. Keller ) Social History Tobacco Use Types Packs/Day Years Used Date Smoking Tobacco: Never Smokeless Tobacco: Never Adolescent Education Answer Date Record ed Getting School Help Needed Not on file 09/11 Sex and Gender Information Value Date Recorded Sex Assigned at Not on file Gender Identity Not on file Sexual Orientation Not on file documented as of this encounter Miscellaneous Notes * Telephone Encounter - Lu Sommer RN - 12/09/2023 1:17 PM CDT Valeria had her Breast MRI completed. Plan is to start radiation therapy treatment. Called Valeria regarding appointment with Dr. Keller prior to starting radiation therapy treatment. Left message with Valeria to see if she can come in this Friday12/12/23. Lu Sommer RN,BSN,OCN,CBCN documented in this encounter Plan of Treatment Upcoming Encounters Date Type Department Care Team (Late st Contact Info) Description 04/20/2024 8:00 AM CDT Hospital Encounter [facility] Endoscopy [address] [phone] Murphy Otoole MD [facility] [address] [facility] [address] [place] [address] 04/20/2024 8:00 AM CDT - 04/20/2024 8:30 AM CDT Surgery [facility] Endoscopy [address] [phone] Murphy Otoole MD [facility] [address] [facility] [address] [place] [address] Colonoscopy 08/23/2024 12:00 PM ARCHAEOLOGY PROFESSOR Appointment [facility] Breast [place] [address] [facility], [address] [place] [phone] Herman Keller MD [address] [place], [place] [address] 08/27/2024 10:00 AM ARCHAEOLOGY PROFESSOR Oncology Visit [facility] [address], [address] [facility] [place] [phone] Herman Keller MD [address] [place] [address] Scheduled Procedures Name Priority Associated Diagnoses Date/Ti ok COLONOSCOPY Malignant neoplasm of upper-inner quadrant of right breast in female, estrogen receptor negative (H) 04/20/2024 8:00 AM CDT documented as of this encounter Visit Diagnoses Not on filedocumented in this encounter Care Teams Bus Transportation Manager Relationship Specialty Start Date End Date Vickey Weber MD [facility] [address] [place] [address] PCP - General Emergency Medicine 09/11/23 Gonzalez Beckett MD [address] [facility] [address] [place] [address] Assigned Surgical Provider 10/03/23 Herman Keller MD [address] [place] [address] Assigned Cancer Care Provider 10/03/23 documented as of this encounter
--- OUTSIDE RECORDS SUMMARY | 2024-02-18 16:48 | XMS_ITS | Encounter Summary ---
Author Organization [place] Address [address] [place] [address] Care Team Providers Care Mathematics Improvement Teacher Name Role Phone Vickey Weber MD Primary Care Provider Gonzalez Beckett MD Unavailable [phone] Herman Keller MD Unavailable [phone] Encounter Details Date Type Department Care Team (Latest Contact Info) Description 12/04/2023 Travel Social History Tobacco Use Types Packs/Day [...] Description 04/20/2024 8:00 AM CDT Hospital Encounter [facility] Endoscopy [address] [phone] Murphy Otoole MD [facility] [address] [id number] 04/20/2024 8:00 AM CDT - 04/20/2024 8:30 AM CDT Surgery [facility] Endoscopy [address] [phone] Murphy Otoole MD [facility] [address] [address] Colonoscopy 08/23/2024 12:00 PM RAILROAD ENGINEER Appointment [facility] Breast [place] [address] [facility], [address] [place] [phone] Herman Keller MD [address] [place], [place] [address] 08/27/2024 10:00 AM RAILROAD ENGINEER Oncology Visit [facility] [place] [address], [address] [facility] [place] [phone] Herman Keller MD [address] [place], [place] [address] Scheduled Procedures Name Priority Associated Diagnoses Date/Ti me COLONOSCOPY Malignant neoplasm of upper-inner quadrant of right breast in female, estrogen receptor negative (H) 04/20/2024 8:00 AM CDT documented as of this encounter Visit Diagnoses Not on filedocumented in this encounter Care Teams Mathematics Improvement Teacher Relationship Specialty Start Date End Date Vickey Weber MD [facility] [address] [place] [address] PCP - General Emergency Medicine 09/11/23 Gonzalez Beckett MD [address] [place] [address] Assigned Surgical Provider 10/03/23 Herman Keller MD [address] [place], [place] [address] Assigned Cancer Care Provider 10/03/23 documented as of this encounter
== END 2024-02-18 16:44 | disposition home or self-care (01) ==
PROVIDERS: PCP Internal Medicine; Visit Provider Internal Medicine
DX: I10 Essential (primary) hypertension (principal); R53.83 Other fatigue
CPT/HCPCS: 80053; 84443

== ENCOUNTER 2024-02-27 13:51 | Outpatient (CLI) | payer OTHER, SELFPAY ==
[2024-02-27] MEDS: PERFLUTREN LIPID MICROSPHERES 2 ML VIAL IV (14:57)
== END 2024-02-27 13:52 | disposition home or self-care (01) ==
LOC: RAD 13:51
PROVIDERS: PCP Internal Medicine; Visit Provider Internal Medicine
DX: I10 Essential (primary) hypertension (principal)
CPT/HCPCS: 93306; Q9957

== ENCOUNTER 2024-07-06 16:39 | Outpatient (CLI) | payer OTHER, SELFPAY | END 2024-07-06 16:40 | disposition home or self-care (01) | LOC: NFLDREF 16:39 | PROVIDERS: PCP Internal Medicine; Visit Provider Internal Medicine Nephrology | DX: I10 Essential (primary) hypertension (principal) | CPT/HCPCS: 80069 ==

== ENCOUNTER 2024-12-09 10:56 | Outpatient (CLI) | payer OTHER, SELFPAY | END 2024-12-09 10:57 | disposition home or self-care (01) | PROVIDERS: PCP Internal Medicine; Visit Provider Internal Medicine | DX: Z13.88 Encounter for screening for disorder due to exposure to contaminants (principal); D64.9 Anemia, unspecified | CPT/HCPCS: 83540; 83550; 83655 ==

== ENCOUNTER 2025-03-21 17:07 | Emergency (ER) | payer OTHER, SELFPAY ==
--- OUTSIDE RECORDS SUMMARY | 2018-04-14 10:29 | XMS_ITS | Continuity of Care Document ---
Author Organization [facility] Address [address] [address] [place] [address] Phone Care Team Providers Care Director Of Assisted Living Name Role Phone Epifanio Finch MD Unavailable Unavailable Allergies, Adverse Reactions, Alerts Substance Reaction Status Criticality fluconazole Active No Information Medications Medication Instructions Dosage Effective Dates (start - stop) Status Comments triamterene 37.5 mg-hydrochlorothiazi de 25 mg tablet take 1 tablet by oral route every day 1.00 tablet - Active lansoprazole 30 mg capsule,delayed release take 1 capsule by ORAL route 2 times every day 30 MG - Active Lexapro 20 mg tablet take 1 Tablet by ORAL route every day 20 MG - Active Ativan 1 mg tablet take 1 tablet by oral route every day as needed 1 MG - Active Claritin 10 mg tablet take 1 tablet by oral route every day 10 MG - Active Procedures Procedure Date Ugi Endo; Dx W/wo Collec Specm 17 Offic Cons New/estab Mod Advance Directives Directive Yes / No Effective Date File Name No Information Encounters Encounter Description Practice Location Reason(s) For Visit Diagnoses Date Provider Providers Copied on Encounter [facility], [address] [address], [place], [id number], [place] tel:[phone] [facility] No Information 8 Stef Godfrey. [address] [facility], [address], [place], [id number] , [place]. tel:[phone] [facility], [address] [address], [place], [id number], [place] tel:[phone] [facility] Hiatal herniaGastroesoph ageal reflux disease without esophagitisFamily history of malignant neoplasm of digestive organsGastro-esop hageal reflux disease without esophagitisDiaphr agmatic hernia without obstruction or gangrene 7 Stef Godfrey. [address] [facility], [facility] [address], [place], [place], [id number] , . tel:[phone] Referring Provider: Referral Self, USE FOR SELF REFERRALS. Offic Cons New/estab Mod [facility], [address] [address], [place], [id number], tel:[phone] [facility] Symptoms or Concerns (chief complaint) Guzman's esophagus without dysplasiaElevated blood-pressure reading, w/o diagnosis of htnDietary counseling and surveillance 6 Christopher Vargas. [address] [facility], [facility] [address], [place], [place], [id number] , [place]. tel:[phone] Referring Provider: Vickey Arreaga, [address] [place] [address], [address]. tel:[phone] Family History Family Member Type Diagnosis Age At Onset Sister Problem (finding) gallbladder disease Mother Problem (finding) Thyroid disorder Father Problem (finding) cancer of the esophagus Son Problem (finding) Alive and well Mother Problem (finding) alcoholism Payers Payer name Insurance type Covered libertarian ID Authoriza tion(s) Blue [facility] [id number] Social History Type Description Quantity Date Captured Comments Sex Female Smoking Status No Information Chief Complaint And Reason For Visit No Information Reason For Referral Reason For Referral No Information Plan Of Treatment Date Type Action Status Goal Lifestyle education nathalie hamm diet completed Referral Ordered: EGD Appointment date/timeframe: 09/13/2016 ordered History Of Present Illness Encounter Date Complaint History Of Prese nt Illness GI Symptoms or Concerns The symp toms began 5 years ago. The symptoms are reported as being moderate. The symptoms occur daily. The location is retrosternal. Aggravating factors include spicy foods. She states the symptoms are chronic. Ms. Cornell is a 45-year-old woman with a history of heartburn, hypertension, and anxiety/depression who was seen to discuss recent diagnosis of Guzman's esophagus.She was recently seen in [place], [place] for upper endoscopy due to symptoms of heartburn. She has had heartburn symptoms for many years and also has a family history of esophageal cancer in her father. During this endoscopy, she was noted to have intestinal metaplasia on esophageal biopsies, with diagnosis given of Guzman's esophagus. The endoscopic report is not available to explain exactly the length of the presumptive Guzman's; however, pictures today appear to show a likely short segment Guzman's.She denies any dysphagia. She has no nausea or vomiting.She has started omeprazole Functional Status Date Functional Assessmen t No Information Instructions Date Instruction Additional Infor mation Hiatal Hernia Related to Hiata l hernia Gastroesophageal Reflux Disease Related to Hiatal hernia 1.) Controlling hear tburn can be helpful in preventing the progression of Guzman's esophagus. Dietary management of heartburn is reasonable and useful, however use of antacid medications is oftent more effective.2.) Continue the antacid medication as prescribed by your main doctor.3.) I would recommend a repeat EGD in 1 year (with Dr. Melendez, Dr. Finch, or Dr. Day). Related to Guzman's esophagus without dysplasia Lifestyle education regarding di et Related to Dietary counseling and surveillance Barretts Related to Anna tt's esophagus without dysplasia EGD Related to Anna tt's esophagus without dysplasia Assessments Type Assessment Date No Information Patient Care Teams Name Effective Dates (start - stop) Status Members No Information
--- OUTSIDE RECORDS SUMMARY | 2018-04-14 10:29 | XMS_ITS | Continuity of Care Document ---
Author Organization [facility] Address [address] [address] [place] [address] Phone Care Team Providers Care Network Design Architect Name Role Phone Epifanio Finch MD Unavailable [...] Encounter [facility], [address] [address], [place], [id number], [place] tel:[phone] [facility] No Information 8 Stef Godfrey. [address] [facility], [address], [place], [id number] , [place]. tel:[phone] [facility], [address] [address], [place], [id number], [place] tel:[phone] [facility] Hiatal herniaGastroesoph ageal reflux disease without esophagitisFamily history of malignant neoplasm of digestive organsGastro-esop hageal reflux disease without esophagitisDiaphr agmatic hernia without obstruction or gangrene 7 Stef Godfrey. [address] [facility], [facility] [address], [place], [place], [id number] , . tel:[phone] Referring Provider: Referral Self, USE FOR SELF REFERRALS. Offic Cons New/estab Mod [facility], [address] [address], [place], [id number], tel:[phone] [facility] Symptoms or Concerns (chief complaint) Guzman's esophagus without dysplasiaElevated blood-pressure reading, w/o diagnosis of htnDietary counseling and surveillance 6 Christopher Vargas. [address] [facility], [facility] [address], [place], [place], [id number] , [place]. tel:[phone] Referring Provider: Vickey Arreaga, [address] [place] [address], [address]. tel:[phone] Family History Family Member Type Diagnosis Age At Onset Sister Problem (finding) gallbladder disease Mother Problem (finding) Thyroid disorder Father Problem (finding) cancer of the esophagus Son Problem (finding) Alive and well Mother Problem (finding) alcoholism Payers Payer name Insurance type Covered libertarian ID Authoriza tion(s) Blue [facility] [id number] Social History Type Description Quantity Date Captured [...] of Guzman's esophagus.She was recently seen in [place], [place] for upper endoscopy due to symptoms [...] Dietary counseling and surveillance Barretts Related to [place] tt's esophagus without dysplasia EGD Related to [place] tt's esophagus without dysplasia Assessments Type Assessment Date No Information Patient Care Teams Name Effective Dates (start - stop) Status Members No Information
--- OUTSIDE RECORDS SUMMARY | 2025-02-21 11:59 | XMS_ITS | Encounter Summary ---
Author Organization [place] Address [facility] [place] [address] Care Team Providers Care Motion Picture Commentator Name Role Phone Vickey Weber MD Primary Care Provider Gonzalez Beckett MD Unavailable [phone] Herman Keller MD Unavailable [phone] Reason for Visit * Diagnostic Imaging Ultrasound (Routine) - Pending Review Specialty Diagnoses / Procedures Referred By Belen t Referred To Contact Radiology. Diagnoses Breast pain, left Procedures US Breast Left US Axillary Left US Breast Left Limited 1-3 Quadrants Herman Keller MD [address] [place] [address] Phone: tel: fax: Referral ID Status Reason Start Date Expiration Date V isits Requested Visits Authorized [id number] Pending Review 02/17/2025 02/17/2026 1 1 Encounter Details Date Type Department Care Team (Latest Contact Info) Description 02/21/2025 11:59 AM CDT - 02/21/2025 11:59 PM CDT Hospital Encounter [facility] [address] [facility] [address] [place] [phone] Herman Keller MD [address] [place] [id number] Breast pain, left Discharge Disposition: Home or Self Care Social History Tobacco Use Types Packs/Day Years Used Date Smoking Tobacco: Never Smokeless Tobacco: Never Adolescent Education Answer Date Record ed Getting School Help Needed Not on file 09/11 Comments Unknown Sex and Gender Information Value Date Recorded Sex Assigned at Not on file Legal Sex Female 10:30 AM POT PULLER Gender Identity Not on file Sexual Orientation Not on file documented as of this encounter Medications at Time of Discharge ammonium lactate (LAC-HYDRIN) 12 % external lotion APPLY TO AFFECTED AREAS ON ARMS AND LEGS DAILY. 05/04/2024 carvedilol (COREG) 12.5 MG tablet Take 1 tablet by mouth 2 times daily (with meals) 03/19/2023 cholecalciferol (VITAMIN D3) 25 mcg (1000 units) capsule Take 2 capsules by mouth daily cholestyramine (QUESTRAN) 4 GM/DOSE powder TAKE 1/4 SCOOP BY MOUTH TWICE DAILY 30 MINUTES BEFORE A MEAL. INCREASE DOSE BY 1 GRAM INCREMENTS TO A MAX OF 8 GRAMS BY MOUTH TWICE DAILY 08/24/2024 doxycycline hyclate (VIBRA-TABS) 100 MG tablet Take 1 tablet by mouth daily at 2 pm. 08/05/2024 escitalopram (LEXAPRO) 10 MG tablet Take 10 mg by mouth daily LANsoprazole (PREVACID) [address] capsule TAKE 1 CAPSULE BY MOUTH DAILY FOR GERD LORazepam (ATIVAN) 0.5 MG tablet TAKE ONE TABLET BY MOUTH TWICE A DAY NEEDED FOR AGITATION 03/10/2024 MIEBO 1.338 GM/ML SOLN INSTILL 1 DROP INTO THE EYE(S) FOUR TIMES DAILY 08/23/2024 multivitamin w/minerals (MULTI-VITAMIN) tablet Take 1 tablet by mouth daily NIFEdipine ER OSMOTIC (PROCARDIA XL) 90 MG 24 hr tablet Take 90 mg by mouth. 06/14/2024 PROGESTERONE PO Take by mouth. Doseage unknown spironolactone (ALDACTONE) 50 MG tablet 07/09/2024 tamoxifen (NOLVADEX) 20 MG tabletIndication s:Malignant neoplasm of upper-inner quadrant of right breast in female, estrogen receptor positive (H) Take 0.5 tablets (10 mg) by mouth See Admin Instructions 10 mg every other day 90 tablet 3 09/16/2023 UNABLE TO FIND MEDICATION NAME: Thyroid medication. Dosage or brand unknown. valsartan (DIOVAN) 40 MG tablet Take 40 mg by mouth daily. documented as of this encounter Plan of Treatment Not on file documented as of this encounter Procedures Procedure Name Priority Date/Time Associated Diagnosis Comments US BREAST LEFT LIMITED 1-3 QUADRANTS Routine 02/21/2025 1:19 PM CDT Breast pain, left documented in this encounter Results * (ABNORMAL) US Breast Left (02/21/2025 1:19 PM CDT) Anatomical Region Laterality Modality Breast Left Ultrasound Impressions 02/21/2025 1:34 PM CDT IMPRESSION: BI-RADS CATEGORY: 4 - Suspicious. Small indeterminate left axillary nodule. Ultrasound-guided core biopsy is recommended for definitive histology. Results and plan for biopsy were discussed with the patient during her appointment. RECOMMENDED FOLLOW-UP: Biopsy. YAO YOUSSEF MD Narrative 02/21/2025 1:34 PM CDT MA DIAGNOSTIC LEFT W/ ARGENIS, US BREAST LEFT LIMITED 1-3 QUADRANTS - 02/21/2025 1:33 PM HISTORY: Palpable left breast lump. COMPARISON: 08/23/2024, 08/20/2023, 03/20/2020 BREAST DENSITY: The breasts are heterogeneously dense, which may obscure small masses. FINDINGS: Diagnostic views of the left breast were obtained with tomosynthesis. The pattern of glandular tissue is stable. There is no suspicious finding to suggest malignancy. Further evaluation with targeted left axillary ultrasound shows a tiny hypoechoic nodule just beneath the skin surface measuring 0.3 x 0.3 cm. There is no other abnormality and no evidence of adenopathy. Herman Keller MD [facility] US ORDERABLES Edited documented in this encounter Visit Diagnoses Diagnosis Breast pain, left Mastodynia documented in this encounter Care Teams Motion Picture Commentator Relationship Specialty Start Date End Date Vickey Weber MD [facility] [address] [facility] [place] [address] PCP - General Emergency Medicine 09/11/23 Gonzalez Beckett MD [address] [facility] [address] [place] [address] Assigned Surgical Provider 10/03/23 Herman Keller MD [address] [address] Assigned Cancer Care Provider 10/03/23 documented as of this encounter
--- OUTSIDE RECORDS SUMMARY | 2025-02-21 11:59 | XMS_ITS | Encounter Summary ---
Author Organization [place] Address [facility] [place] [address] Care Team Providers Care Endo Tech Name Role Phone Vickey Weber MD Primary Care Provider Gonzalez Beckett MD Unavailable [phone] Herman Keller MD Unavailable [phone] Reason for Referral * Diagnostic Imaging Mammo (Routine) - Pending Review Specialty Diagnoses / Procedures Referred By Belen huerta Referred To Contact Radiology. Diagnoses Breast pain, left Procedures MA Diagnostic Left w/ Herman Kuo MD [address] [place] [address] Phone: tel: fax: Referral ID Status Reason Start Date Expiration Date V isits Requested Visits Authorized [id number] Pending Review 02/17/2025 02/17/2026 1 1 Reason for Visit * Diagnostic Imaging Mammo (Routine) - Pending Review Specialty Diagnoses / Procedures Referred By Belen huerta Referred To Contact Radiology. Diagnoses Breast pain, left Procedures MA Diagnostic Left w/ Herman Kuo MD [address] [place] [address] Phone: tel: fax: Referral ID Status Reason Start Date Expiration Date V isits Requested Visits Authorized [id number] Pending Review 02/17/2025 02/17/2026 1 1 Encounter Details Date Type Department Care Team (Latest Contact Info) Description 02/21/2025 11:59 AM CDT - 02/21/2025 11:59 PM CDT Hospital Encounter [facility] [address] [facility], [address] [place] [phone] Herman Keller MD [address] [facility] [address] [place] [address] Breast pain, left Discharge Disposition: Home or Self Care Social History Tobacco Use Types Packs/Day Years Used Date Smoking Tobacco: Never Smokeless Tobacco: Never Adolescent Education Answer Date Record ed Getting School Help Needed Not on file 09/11 Comments Unknown Sex and Gender Information Value Date Recorded Sex Assigned at Not on file Legal Sex Female 10:30 AM ENTRY LEVEL MANAGEMENT Gender Identity Not on file Sexual Orientation [...] Procedure Name Priority Date/Time Associated Diagnosis Comments MA DIAGNOSTIC LEFT W/ MIKE Routine 02/21/2025 12:47 PM CDT Breast pain, left documented in this encounter Results * (ABNORMAL) MA Diagnostic Left w/ Mike (02/21/2025 12:47 PM CDT) Anatomical Region Laterality Modality Breast Bilateral Mammography Impressions 02/21/2025 1:34 PM CDT IMPRESSION: BI-RADS CATEGORY: 4 - Suspicious. Small indeterminate left axillary nodule. Ultrasound-guided core biopsy is recommended for definitive histology. Results and plan for biopsy were discussed with the patient during her appointment. RECOMMENDED FOLLOW-UP: Biopsy. YAO YOUSSEF MD Narrative 02/21/2025 1:34 PM CDT MA DIAGNOSTIC LEFT W/ MIKE, US BREAST LEFT LIMITED 1-3 QUADRANTS - [...] no evidence of adenopathy. Herman Keller MD IMG MAMMOGRAPHY ORDERABLE S Final Result documented in this encounter Visit Diagnoses Diagnosis Breast pain, left Mastodynia documented in this encounter Care Teams Endo Tech Relationship Specialty Start Date End Date Vickey Weber MD [facility] [address] [place] [address] PCP - General Emergency Medicine 09/11/23 Gonzalez Beckett MD [address] [place] [id number] Assigned Surgical Provider 10/03/23 Herman Keller MD [address] [place] [id number] Assigned Cancer Care Provider 10/03/23 documented as of this encounter
--- OUTSIDE RECORDS SUMMARY | 2025-02-24 07:23 | XMS_ITS | Encounter Summary ---
Author Organization [facility] Address [address] [place] [address] Care Team Providers Care Black Leather Buffer Name Role Phone Vickey Weber MD Primary Care Provider Gonzalez Beckett MD Unavailable [phone] Herman Keller MD Unavailable [phone] Reason for Referral * Diagnostic Imaging Ultrasound (Routine) - Closed Specialty Diagnoses / Procedures Referred By Belen huerta Referred To Contact Radiology. Diagnoses Breast pain, left Procedures US Breast Biopsy Core Needle Left Herman Keller MD [address] [place] [address] Phone: tel: fax: [facility] [place] [address], [address] [place] [address] Phone: tel: Referral ID Status Reason Start Date Expiration Date Visits Re quested Visits Authorized [id number] Closed 02/21/2025 02/21/2026 1 1 Reason for Visit * Diagnostic Imaging Ultrasound (Routine) - Closed Specialty Diagnoses / Procedures Referred By Conttangela t Referred To Contact Radiology. Diagnoses Breast pain, left Procedures US Breast Biopsy Core Needle Left Herman Keller MD [address] [place] [address] Phone: tel: fax: [facility] [address], [address] [place] [address] Phone: tel: Referral ID Status Reason Start Date Expiration Date Visits Re quested Visits Authorized [id number] Closed 02/21/2025 02/21/2026 1 1 Encounter Details Date Type Department Care Team (Latest Contact Info) Description 02/24/2025 7:23 AM CDT - 02/24/2025 8:05 AM CDT Hospital Encounter M [facility] [address], [address] [place] [address] Herman Keller MD [address] [id number] Breast pain, left Discharge Disposition: Home or Self Care Social History Tobacco Use Types Packs/Day Years Used Date Smoking Tobacco: Never Smokeless Tobacco: Never Adolescent Education Answer Date Record ed Getting School Help Needed Not on file 09/11 Comments Unknown Sex and Gender Information Value Date Recorded Sex Assigned at Not on file 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 If you bleed through the bandage, put direct pressure on the breast for 10 minutes. If the breast begins to swell, or you have a lot of bleeding after 10 minutes of pressure, call thedoctor who ordered your exam. Or, go to the emergency room. Bandages Keep your bandage in place until tomorrow morning. Do not get it wet. If you have small pieces of tape on the skin, leave them in place. They will fall off on their own,or you can remove them after 5 days. Activity You may shower the morning after the exam. No heavy activity (lifting, vacuuming) on the day of your exam. You may go back to normal activity the next day, unless you had a lot of bleeding or pain. Discomfort You may take Tylenol (acetaminophen) today for pain. Tomorrow, you may take an anti-inflammatory medicine (aspirin, ibuprofen, Motrin, Aleve, Advil), unless your doctor tells you not to. Wear your bra overnight to support the breast. You may also use an ice pack: Place it over the areafor 15-20 minutes several times a day. Infection Infection is rare. Symptoms include fever, redness, increasing pain and fluid draining from the biopsy site. If you have any of these symptoms, please call the doctor who ordered your exam. Results Results may take up to 5 business days. A nurse or doctor from the Breast Center will call with your results. We will also send the results to the doctor who ordered your biopsy. If you have not heard your results in 5 days, please call the Breast Center. Other instructions Call your doctor if: You have bleeding that lasts more than 10 minutes. You have pain that cannot be controlled. You have signs of infection (fever, redness, drainage or other signs). You have not received your results within 5 days. Please call the [facility] nurse navigator at [phone] if you have questions or concerns about your biopsy. documented in this encounter Medications at Time of Discharge [...] Priority Date/Time Associated Diagnosis Comments US BREAST BIOPSY CORE NEEDLE LEFT Routine 02/24/2025 8:08 AM CDT Breast pain, left SURGICAL PATHOLOGY EXAM Routine 02/24/2025 8:05 AM CDT Breast pain, left documented in this encounter Results * US Breast Biopsy Core Needle Left (02/24/2025 8:08 AM CDT) Anatomical Region Laterality Modality Breast Left Ultrasound Addenda Addendum by Shannan Valdez MD on 02/25/2025 2:57 PM CDT Pathology: Cores of fibroadipose tissue with fat necrosis and dense fibrosis. No evidence of malignancy. Concordance: Concordant Recommendation: 6 month follow-up ultrasound SHANNAN VALDEZ MD Impressions 02/24/2025 8:44 AM CDT IMPRESSION: Successful ultrasound-guided core biopsy of the breast. Final pathology is pending. SHANNAN VALDEZ MD Narrative 02/24/2025 8:44 AM CDT ULTRASOUND-GUIDED BREAST CORE BIOPSY; CLIP PLACEMENT; POSTPROCEDURE DIGITAL MAMMOGRAM; US BREAST BIOPSY CORE NEEDLE LEFT, MA POST PROCEDURE LEFT 02/24/2025 8:43 AM INDICATION FOR PROCEDURE: Palpable lump PROCEDURE: Target: Indistinct 0.3 cm mass in the low left axilla Clip: Hydromark T4 Number of samples: 3 Post clip mammogram: The clip is on target Written informed consent was obtained from the patient prior to the procedure. The risks and benefits were discussed. Lidocaine was infiltrated for local anesthetic. Samples were obtained with a 14-gauge core-cutting needle via a 13 gauge introducer. A clip was then deployed to magi the lesion. Postbiopsy unilateral digital mammogram was obtained with findings described above. The patient tolerated the procedure without difficulty and there was no immediate complication. Herman Keller MD [facility] ORDERABLES Edited Result - Final * Surgical Pathology Exam (02/24/2025 8:05 AM CDT) Case Report Surgical Pathology Report Case: [id number] Authorizing Provider: Herman Keller MD Collected: 02/24/2025 08:05 AM Ordering Location: [facility] Received: 02/24/2025 08:26 AM Breast Center Pathologist: Memo Izaguirre MD Specimen: Axilla, Left 02/25/2025 12:08 PM CDT LABORATORY Final Diagnosis A. Axilla, left, 0.3 cm size nodule, needle core biopsy: - Cores of fibroadipose tissue with fat necrosis and dense fibrosis. - No evidence of malignancy. 02/25/2025 12:08 PM CDT LABORATORY at 1208 CDT Clinical Information Targeted left axillary ultrasound shows a tiny hypoechoic nodule just beneath the skin surface measuring 0.3 x 0.3 cm. There is no other abnormality and no evidence of adenopathy. 02/25/2025 12:08 PM CDT LABORATORY Gross Description A(1). Axilla, Left, : The specimen is received in formalin, labeled with the patient's name, medical record number and other identifying information designated left axillary ultrasound core biopsy, 0.3 cm in size, high suspicion. It consists of 3 fragments of yellow-white needle core biopsy tissue measuring 0.3-0.5 cm in greatest dimension. The fragments are submitted entirely in formalin wrapped in lens paper in 1 cassette. Time collected: 8:05 AM on 02/24/2025 Time in formalin: 8:08 AM on 02/24/2025. ALBERTO Jin(ASCP) 02/24/2025 9:29 AM 02/25/2025 12:08 PM T LABORATORY Microscopic Description Microscopic examination was performed and results are incorporated into the final diagnosis. 02/25/2025 12:08 PM CDT LABORATORY Performing Labs The technical component of this testing was completed at [facility]. Stain controls for all stains resulted within this report have been reviewed and show appropriate reactivity. 02/25/2025 12:08 PM CDT LABORATORY Case Images 02/25/2025 12:08 PM CDT LABORATORY Biopsy STRUCTURE OF LEFT AXILLARY REGION / Unknown 02/24/2025 8:05 AM CDT 02/24/2025 8:26 AM CDT Comment:Left axillary ultras ound core biopsy, 0.3 cm size. High suspicion. Performed by Dr. Shannan Valdez. Indication: left axillary mass. us Herman Keller MD LAB - [facility] Final Res ult LABORATORY [facility] [address] 1st floor, [address] [place] [address], [facility] [phone] LABORATORY [facility] [address] [facility] (1st floor, no room number) [place] [address], [facility] documented in this encounter Visit Diagnoses Diagnosis Breast pain, left Mastodynia documented in this encounter Administered Medications Inactive Administered Medications - up to 3 most recent administrations Medication Order MAR Action Action Date Dose Rate Site lidocaine 1 % 5 mL 5 mL, Subcutaneous, ONCE, On Mildred 02/24/25 at 0800, For 1 doseIndications:Breast pain, left $Given 02/24/2025 7:57 AM CDT 5 mLs documented in this encounter Care Teams Black Leather Buffer Relationship Specialty Start Date End Date Vickey Weber MD [facility] [address] [place] [address] PCP - General Emergency Medicine 09/11/23 Gonzalez Beckett MD [address] [place] [address] Assigned Surgical Provider 10/03/23 Herman Keller MD [address] [place] [address] Assigned Cancer Care Provider 10/03/23 documented as of this encounter
--- OUTSIDE RECORDS SUMMARY | 2025-02-24 08:06 | XMS_ITS | Encounter Summary ---
Author Organization [facility] Address [facility] [place] [address] Care Team Providers Care Trouble Tracer Name Role Phone Vickey Weber MD Primary Care Provider Gonzalez Beckett MD Unavailable [phone] Herman Keller MD Unavailable [phone] Reason for Referral * Diagnostic Imaging Mammo (Routine) - Pending Review Specialty Diagnoses / Procedures Referred By Contac t Referred To Contact Radiology. Diagnoses Breast pain, left Procedures MA Post Procedure Left Herman Keller MD [address] [place] [address] Phone: tel: fax: Referral ID Status Reason Start Date Expiration Date V isits Requested Visits Authorized [id number] Pending Review 02/21/2025 02/21/2026 1 1 Reason for Visit * Diagnostic Imaging Mammo (Routine) - Pending Review Specialty Diagnoses / Procedures Referred By Contac t Referred To Contact Radiology. Diagnoses Breast pain, left Procedures MA Post Procedure Left Herman Keller MD [address] [place] [address] Phone: tel: fax: Referral ID Status Reason Start Date Expiration Date V isits Requested Visits Authorized [id number] Pending Review 02/21/2025 02/21/2026 1 1 Encounter Details Date Type Department Care Team (Latest Contact Info) Description 02/24/2025 8:06 AM CDT - 02/24/2025 11:59 PM CDT Hospital Encounter [facility] [address] [facility] [place] [phone] Herman Keller MD [address] [facility] [address] [place] [id number] Breast pain, left Discharge Disposition: Home or Self Care Social History Tobacco Use Types Packs/Day Years Used Date Smoking Tobacco: Never Smokeless Tobacco: Never Adolescent Education Answer Date Record ed Getting School Help Needed Not on file 09/11 Comments Unknown Sex and Gender Information Value Date Recorded Sex Assigned at Not on file 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 Procedure Note Shannan Valdez MD - 02/24/2025 ULTRASOUND-GUIDED BREAST CORE BIOPSY; CLIP PLACEMENT; POSTPROCEDURE DIGITAL MAMMOGRAM; US BREAST BIOPSY CORE NEEDLE LEFT, SAM POST PROCEDURE LEFT 02/24/2025 8:43 AM INDICATION [...] difficulty and there was no immediate complication. IMPRESSION: Successful ultrasound-guided core biopsy of the breast. Final pathology is pending. SHANNAN VALDEZ MD Herman Keller MD IMG MAMMOGRAPHY ORDERABLE S Edited Result - Final documented in this encounter Visit Diagnoses Diagnosis Breast pain, left Mastodynia documented in this encounter Care Teams Trouble Tracer Relationship Specialty Start Date End Date Vickey Weber MD [facility] [address] [place] [address] PCP - General Emergency Medicine 09/11/23 Gonzalez Beckett MD [address] [facility] [address] [place] [address] Assigned Surgical Provider 10/03/23 Herman Keller MD [address] [place] [address] Assigned Cancer Care Provider 10/03/23 documented as of this encounter
--- OUTSIDE RECORDS SUMMARY | 2025-02-25 10:15 | XMS_ITS | Encounter Summary ---
Author Organization [facility] Address [address] [place] [address] Care Team Providers Care Anodize Machine Operator Name Role Phone Vickey Weber MD Primary Care Provider Gonzalez Beckett MD Unavailable [phone] Herman Keller MD Unavailable [phone] Reason for Visit * Diagnostic Imaging MRI (Routine) - Closed Specialty Diagnoses / Procedures Referred By Contac t Referred To Contact Radiology. Diagnoses Malignant neoplasm of upper-inner quadrant of right breast in female, estrogen receptor positive (H) Procedures MR Breast Bilateral w/o & w Contrast Herman Keller MD Phone: tel: fax: Referral ID Status Reason Start Date Expiration Date Visits Re quested Visits Authorized [id number] Closed 08/27/2024 08/27/2025 1 1 Encounter Details Date Type Department Care Team (Latest Contact Info) Description 02/25/2025 10:15 AM CDT Ancillary Procedure M [facility] [address] [place] [phone] Herman Keller MD [address] [place] [id number] Malignant neoplasm of upper-inner quadrant of right breast in female, estrogen receptor positive (H) Social History Tobacco Use Types Packs/Day Years Used Date Smoking Tobacco: Never Smokeless Tobacco: Never Adolescent Education Answer Date Record ed Getting School Help Needed Not on file 09/11 Comments Unknown Sex and Gender Information Value Date Recorded Sex Assigned at Not on file 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 Gender Identity Not on file Sexual Orientation Not on file documented as of this encounter Plan of Treatment Not on file documented as of this encounter Procedures Procedure Name Priority Date/Time Associated Diagnosis Comments MR BREAST BILATERAL W/O & W CONTRAST Routine 02/25/2025 10:43 AM CDT Malignant neoplasm of upper-inner quadrant of right breast in female, estrogen receptor positive (H) documented in this encounter Results * MR Breast Bilateral w/o & w Contrast (02/25/2025 10:43 AM CDT) Anatomical Region Laterality Modality Breast, SUBRAD BREAST, UMP BREAST, RAD MR Bilate ral Magnetic Resonance Impressions 02/25/2025 1:50 PM CDT IMPRESSION: BI-RADS CATEGORY: 2 - Benign. Bilateral postreduction changes. No evidence of malignancy in either breast. RECOMMENDED FOLLOW-UP: Routine yearly mammography beginning at age 40 or as discussed with your provider. Continued screening per high risk screening guidelines. 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 Left axillary ultrasound-guided biopsy of a 3 mm palpable finding 02/24/2025 shows cores of fibroadipose tissue with fat necrosis and dense fibrosis. Comparison: MRI 12/04/2023, mammogram 02/21/2025 Technique: Precontrast gradient recall axial nonfat sat T1. Precontrast gradient recall axial fat-sat T1. Precontrast T2 STIR axial fat sat. Postcontrast gradient recall axial fat-sat T1 with dynamic postcontrast acquisitions at 2, 4 and 6 minutes with subtractions. Delayed High-Resolution Gradient recall sagittal fat-sat T1. MIP of subtractions, axial coronal and sagittal. Color encoding of post contrast dynamic acquisitions. IV contrast: 7.5mL Gadavist Breast composition: Heterogeneous fibroglandular tissue Background parenchymal enhancement: Mild Findings: Right Breast: Right breast postreduction changes are noted. No concerning areas of enhancement. Right Axilla: No lymphadenopathy. Left Breast: Left breast postreduction changes are noted. No concerning areas of enhancement. Left Axilla: No lymphadenopathy. Superficial post biopsy changes are noted in the left axilla corresponding to the recent benign ultrasound-guided biopsy. Internal Mammary Chain: No lymphadenopathy. 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 Left axillary ultrasound-guided biopsy of a 3 mm palpable finding 02/24/2025 shows cores of fibroadipose tissue with fat necrosis and dense fibrosis. Comparison: MRI 12/04/2023, mammogram 02/21/2025 Technique: Precontrast gradient recall axial nonfat sat T1. Precontrast gradient recall axial fat-sat T1. Precontrast T2 STIR axial fat sat. Postcontrast gradient recall axial fat-sat T1 with dynamic postcontrast acquisitions at 2, 4 and 6 minutes with subtractions. Delayed High-Resolution Gradient recall sagittal fat-sat T1. MIP of subtractions, axial coronal and sagittal. Color encoding of post contrast dynamic acquisitions. IV contrast: 7.5mL Gadavist Breast composition: Heterogeneous fibroglandular tissue Background parenchymal enhancement: Mild Findings: Right Breast: Right breast postreduction changes are noted. No concerning areas of enhancement. Right Axilla: No lymphadenopathy. Left Breast: Left breast postreduction changes are noted. No concerning areas of enhancement. Left Axilla: No lymphadenopathy. Superficial post biopsy changes are noted in the left axilla corresponding to the recent benign ultrasound-guided biopsy. Internal Mammary Chain: No lymphadenopathy. IMPRESSION: BI-RADS CATEGORY: 2 - Benign. Bilateral postreduction changes. No evidence of malignancy in either breast. RECOMMENDED FOLLOW-UP: Routine yearly mammography beginning at age 40 or as discussed with your provider. Continued screening per high risk screening guidelines. KYRA DAMON MD Herman Keller MD [facility] [place] Final Result documented in this encounter Visit Diagnoses Diagnosis Malignant neoplasm of upper-inner quadrant of right breast in female, estrogen receptor positive (H) documented in this encounter Administered Medications Inactive Administered Medications - up to 3 most recent administrations Medication Order MAR Action Action Date Dose Rate Site gadobutrol (GADAVIST) injection 7.5 mL 7.5 mL, Intravenous, ONCE, On Fri02/25/25 at 1030, For 1 dose, Supplied by, and administered by MRI. $Given 02/25/2025 10:08 AM CDT 7.5 mLs documented in this encounter Care Teams Anodize Machine Operator Relationship Specialty Start Date End Date Vickey Weber MD [facility] [address] [place] [address] PCP - General Emergency Medicine 09/11/23 Gonzalez Beckett MD [address] [place] [address] Assigned Surgical Provider 10/03/23 Herman Keller MD [address] [place] [id number] Assigned Cancer Care Provider 10/03/23 documented as of this encounter
--- OUTSIDE RECORDS SUMMARY | 2025-03-04 12:00 | XMS_ITS | Encounter Summary ---
Author Organization [place] Address [facility] [place] [address] Care Team Providers Care Machine Operators Name Role Phone Vickey Weber MD Primary Care Provider Gonzalez Beckett MD Unavailable [phone] Herman Keller MD Unavailable [phone] Reason for Referral * Diagnostic Imaging Mammo (Routine) - Pending Review Specialty Diagnoses / Procedures Referred By Belen huerta Referred To Contact Radiology. Diagnoses Malignant neoplasm of upper-inner quadrant of right breast in female, estrogen receptor positive (H) Procedures MA Screen Bilateral w/Herman Kuo MD [address] [place] [address] Phone: tel: fax: Referral ID Status Reason Start Date Expiration Date V isits Requested Visits Authorized [id number] Pending Review 03/09/2025 03/09/2026 1 1 * Diagnostic Imaging Mammo (Routine) - Pending Review Specialty Diagnoses / Procedures Referred By Conttangela huerta Referred To Contact Radiology. Diagnoses Malignant neoplasm of upper-inner quadrant of right breast in female, estrogen receptor positive (H) Procedures MA Screen Bilateral w/Herman Kuo MD [address] [place] [address] Phone: tel: fax: Referral ID Status Reason Start Date Expiration Date V isits Requested Visits Authorized [id number] Pending Review 03/04/2025 03/04/2026 1 1 Encounter Details Date Type Department Care Team (Late st Contact Info) Description 03/04/2025 12:00 PM CDT Virtual Visit [facility] [address] [facility] [place] [phone] Herman Keller MD [address] [place] [address] Malignant neoplasm of upper-inner quadrant of right [...] on file Legal Sex Female 10:30 AM COSMETIC ASSEMBLER Gender Identity Not on file Sexual Orientation Not on file documented as of this encounter Progress Notes * Herman Keller MD - 03/04/2025 12:00 PM CDT Valeria is a 54 year old who is being evaluated via a billable telephone visit. What phone number would you like to be contacted at? [phone] How would you like to obtain your AVS? Mail a copy Originating Location (pt. Location): Home Distant Location (provider location): On-site Telephone visit completed due to the patient did not have access to video, while the distant provider did. 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 She underwent screening mammogram in July which was unremarkable. She underwent a bilateral breast lift with some tissue removal and unexpectedly was found to have a 4 mm focus of DCIS in the left breast. The DCIS was grade 1 ER/MT strongly positive. Patient has an IUD in place she thinks its Mirena IUD. She had the Mirena IUD removed and now has copper IUD stopped tamoxifen after 3 months due to tolerability issues Interval history: Valeria returns for follow-up. Overall she is doing great. REVIEW OF SYSTEMS: 14 point ROS was reviewed and is negative other than as noted above in HPI. HOME MEDICATIONS: Current Outpatient Medications Medication Sig Dispense Refill ammonium lactate (LAC-HYDRIN) 12 % external lotion APPLY TO AFFECTED AREAS ON ARMS AND LEGS DAILY. carvedilol (COREG) 12.5 MG tablet Take 1 tablet by mouth 2 times daily (with meals) cholecalciferol (VITAMIN D3) 25 mcg (1000 units) capsule Take 2 capsules by mouth daily cholestyramine (QUESTRAN) 4 GM/DOSE powder TAKE 1/4 SCOOP BY MOUTH TWICE DAILY 30 MINUTES BEFORE A MEAL. INCREASE DOSE BY 1 GRAM INCREMENTS TO A MAX OF 8 GRAMS BY MOUTH TWICE DAILY doxycycline hyclate (VIBRA-TABS) 100 MG tablet Take 1 tablet by mouth daily at 2 pm. escitalopram (LEXAPRO) 10 MG tablet Take 10 mg by mouth daily LANsoprazole (PREVACID) [address] capsule TAKE 1 CAPSULE BY MOUTH DAILY FOR GERD LORazepam (ATIVAN) 0.5 MG tablet TAKE ONE TABLET BY MOUTH TWICE A DAY NEEDED FOR AGITATION MIEBO 1.338 GM/ML SOLN INSTILL 1 DROP INTO THE EYE(S) FOUR TIMES DAILY multivitamin w/minerals (MULTI-VITAMIN) tablet Take 1 tablet by mouth daily NIFEdipine ER OSMOTIC (PROCARDIA XL) 90 MG 24 hr tablet Take 90 mg by mouth. PROGESTERONE PO Take by mouth. Doseage unknown spironolactone (ALDACTONE) 50 MG tablet UNABLE TO FIND MEDICATION NAME: Thyroid medication. Dosage or brand unknown. valsartan (DIOVAN) 40 MG tablet Take 40 mg by mouth daily. tamoxifen (NOLVADEX) 20 MG tablet Take 0.5 tablets (10 mg) by mouth See Admin Instructions 10 mg every other day (Patient not taking: Reported on 03/04/2025) 90 tablet 3 ALLERGIES: Allergies Allergen Reactions Terbinafine Hives PAST [...] Social History Narrative Not on file Social Drivers of Health Financial Resource Strain: Not on file Food Insecurity: Not on file Transportation Needs: Not on file Physical Activity: Not on file Stress: Not on file Social Connections: Unknown (02/03/2023) Received from [facility] Social Connections Frequency of Communication with Friends and Family: Not on file Interpersonal Safety: Not on file Housing Stability: Not on file FAMILY HISTORY: No family history on file. PHYSICAL EXAM: Vital signs: none. Phone visit LABS: None PATHOLOGY: DCIS grade 1 ER/MT positive IMAGING: Noted as per HPI ASSESSMENT/PLAN: Valeria is a very pleasant 54-year-old perimenopausal female who has a history of DCIS grade 1 status post bilateral breast reduction DCIS on the left on observation Tamoxifen for 3 months it did not work DCIS ER positive: observation alone -mammogram in aug see me after that. Total time spent on day of visit, including review of tests, obtaining/reviewing separately obtained history, ordering medications/tests/procedures, communicating with PCP/consultants, and documenting in electronic medical record:20 minutes Herman Keller MD Hematology/Oncology [facility] documented in this encounter Plan of Treatment Scheduled Orders Name Type Priority Associated Diagnoses Orde r Schedule MA Screen Bilateral w/Mike Imaging Routine Malignant neoplasm of upper-inner quadrant of right breast in female, estrogen receptor positive (H) Expected: 09/04/2025 (Approximate), Expires: 03/04/2026 MA Screen Bilateral w/Mike Imaging Routine Malignant neoplasm of upper-inner quadrant of right breast in female, estrogen receptor positive (H) Expected: 09/09/2025 (Approximate), Expires: 03/09/2026 documented as of this encounter Visit Diagnoses Diagnosis Malignant neoplasm of upper-inner quadrant of right breast in female, estrogen receptor positive (H)- Primary documented in this encounter Care Teams Machine Operators Relationship Specialty Start Date End Date Vickey Weber MD [facility] [address] [place] [address] PCP - General Emergency Medicine 09/11/23 Gonzalez Beckett MD [address] [place] [address] Assigned Surgical Provider 10/03/23 Herman Keller MD [address] [place] [address] Assigned Cancer Care Provider 10/03/23 documented as of this encounter
[2025-03-21] VITALS (14 sets, daily range): BP systolic 100–129; BP diastolic 68–89; PULSE 83–108; RESP 9–28; TEMP 36.3; O2SAT 93–99; BMI 23.2
--- OUTSIDE RECORDS SUMMARY | 2025-03-21 17:10 | XMS_ITS | Encounter Summary ---
Author Organization [place] Address [address] [place] [address] Care Team Providers Care Combat Information Center Officer Name Role Phone Vickey Weber MD Primary Care Provider Gonzalez Beckett MD Unavailable [phone] Herman Keller MD Unavailable [phone] Encounter Details Date Type Department Care Team (Latest Contact Info) Description 02/24/2025 Travel Social History Tobacco Use Types Packs/Day Years Used Date Smoking Tobacco: Never Smokeless Tobacco: Never Adolescent Education Answer Date Record ed Getting School Help Needed Not on file 09/11 Comments Unknown Sex and Gender Information Value Date Recorded Sex Assigned at Not on file Legal Sex Female 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 Gender Identity Not on file Sexual Orientation Not on file documented as of this encounter Plan of Treatment Not on file documented as of this encounter Visit Diagnoses Not on filedocumented in this encounter Care Teams Combat Information Center Officer Relationship Specialty Start Date End Date Vickey Weber MD [facility] [address] [place] [address] PCP - General Emergency Medicine 09/11/23 Gonzalez Bcekett MD [address] [place] [address] Assigned Surgical Provider 10/03/23 Herman Keller MD [address] [facility] [address] [place] [address] Assigned Cancer Care Provider 10/03/23 documented as of this encounter
--- OUTSIDE RECORDS SUMMARY | 2025-03-21 17:10 | XMS_ITS | CCD ---
Author Name Interface, [id number] Address [address] [place] [address] Oncology Address [address] [place] [address] Reason for Visit Social History Date Name Value Sex Unknown
--- OUTSIDE RECORDS SUMMARY | 2025-03-21 17:10 | XMS_ITS | Encounter Summary ---
Author Organization [place] Address [facility] [place] [address] Care Team Providers Care Tile Designer Name Role Phone iVckey Weber MD Primary Care Provider Gonzalez Beckett MD Unavailable [phone] Herman Keller MD Unavailable [phone] Reason for Referral * Diagnostic Imaging Mammo (Routine) - Pending Review Specialty Diagnoses / Procedures Referred By Contac t Referred To Contact Radiology. Diagnoses Breast pain, left Procedures MA Diagnostic Left w/ Mike Herman Keller MD [address] [place] [address] Phone: tel: fax: Referral ID Status Reason Start Date Expiration Date V isits Requested Visits Authorized [id number] Pending Review 02/17/2025 02/17/2026 1 1 Encounter Details Date Type Department Care Team (Late st Contact Info) Description 02/17/2025 Orders Only [facility] [address] [facility] Medical Ctr [place] [phone] Lu Sommer, RN Breast pain, left (Primary Dx) Social History Tobacco Use Types Packs/Day Years Used Date Smoking Tobacco: Never Smokeless Tobacco: Never Adolescent Education Answer Date Record ed Getting School Help Needed Not on file 09/11 Comments Unknown Sex and Gender Information Value Date Recorded Sex Assigned at Not on file Legal Sex Female 10:30 AM ANALYTICAL LAB ANALYST Gender Identity Not on file Sexual Orientation Not on file documented as of this encounter Plan of Treatment Not on file documented as of this encounter Results * (ABNORMAL) MA Diagnostic [...] this encounter Visit Diagnoses Diagnosis Breast pain, left- Primary Mastodynia Breast pain, left Mastodynia documented in this encounter Care Teams Tile Designer Relationship Specialty Start Date End Date Vickey Weber MD [facility] [address] [place] [address] PCP - General Emergency Medicine 09/11/23 Gonzalez Beckett MD [address] [place] [address] Assigned Surgical Provider 10/03/23 Herman Keller MD [address] [place] [address] Assigned Cancer Care Provider 10/03/23 documented as of this encounter
--- OUTSIDE RECORDS SUMMARY | 2025-03-21 17:10 | XMS_ITS | Clinical Summary ---
Author Organization [facility] Address [address] [place] [address] Care Team Providers Care Client Account Manager Name Role Phone Vickey Weber MD Primary Care Provider Vickey Weber MD Unavailable [phone] Allergies Active Allergy Reactions Criticality Noted Date Comments Terbinafine Hives 07/06/2014 Medications LORazepam (ATIVAN) 0.5 mg tab Take 0.5-1 tablets by mouth every 6 hours if needed for Anxiety or Sleep. 10 tablet 0 06/15/2014 Active escitalopram oxalate (LEXAPRO) 10 mg tablet Take 10 mg by mouth once daily. Active lansoprazole (PREVACID) 30 mg capsule TAKE 1 CAPSULE BY MOUTH DAILY FOR GERD 12/20/2022 Active NIFEdipine (PROCARDIA XL) 90 mg extended-releas e tabletIndicatio ns:HTN (hypertension) Take 1 Tablet (90 mg) by mouth once daily before a meal. Please call [phone] now to schedule an office visit due in Jul 2024 90 Tablet 06/14/2024 Active valsartan-hydro chlorothiazide (Diovan HCT) 160-25 mg per tabletIndicatio ns:HTN (hypertension) Take 1 Tablet by mouth once daily. Please schedule July follow up 30 Tablet 06/28/2024 Active spironolactone 25 mg tabletIndicatio ns:HTN (hypertension) Take 1 Tablet (25 mg) by mouth once daily. 90 Tablet 2 11/23/2024 Active Active Problems Problem Noted Date Diagnosed Date Unspecified essential hypertension 02/17/2007 Chronic interstitial cystitis 02/17/2007 Social History Tobacco Use Types Packs/Day Years Used Date Smoking Tobacco: Never Smokeless Tobacco: Never Tobacco Cessation:Counseling Given: Yes Alcohol Use Standard Drinks/Week Comments Yes 0 (1 standard drink = 0.6 oz pur e alcohol) occasionally Comments No Sex and Gender Information Value Date Recorded Sex Assigned at Not on file Legal Sex Female 5:23 AM BARREL RACER Gender Identity Not on file Sexual Orientation [...] 71 02/03/2023 11:04 AM CDT Temperature 36.8 C (98.3 F) 02/03/2023 11:04 AM CDT Respiratory Rate - - Oxygen Saturation 100% 02/03/2023 11: 04 AM CDT Inhaled Oxygen Concentration - - Weight 74.8 kg (164 lb 12.8 oz) 07/25/2015 8:47 AM BARREL RACER Height - - Body Mass Index - - Plan of Treatment Health Maintenance Due Date Last Done Comments Tetanus booster 1982 Depression screening for age 12+ 1983 HIV for age 15-65 1986 BMI (ht and wt on same day) for age 18+ 1989 Hepatitis C screening for ag e 18-79 1989 Hepatitis B series for 19+ ( 1 of 3 - 19+ 3-dose series) 1990 Colonoscopy through age 75 2016 Lipids for age 45-75 2016 Pneumococcal series for age 50+ (1 of 1 - PCV) 2021 Zoster (shingles) series for age 50+ (1 of 2) 2021 COVID-19 vaccine series (2023- season) 2024 02/26/2022, 05/29/2021, 11/04/2020, Additional history exists Pap test for age 21-65 08/17/2024 , 08/17/2021, 10/11/2013, Additional history exists Mammogram for age 45-75 08/20/2024 08/20/2023 Influenza Vaccine (#1) 2025 RSV vaccine for adults or (1 - 1-dose 75+ series) 2046 Procedures Procedure Name Priority Date/Time Associated Diagnosis Comments XR MAMMO ARGENIS BILAT SCREEN Routine 08/20/2023 8:18 AM BARREL RACER Visit for screening mammogram HPV HIGH RISK Routine 08/17/2021 12:00 PM BARREL RACER from Last 3 Months or Most Recently Relevant to Health Maintenance Results * XR MAMMO ARGENIS BILAT SCREEN (08/20/2023 8:18 AM BARREL RACER) Anatomical Region Laterality Modality BREASTS, Breast Left, Breast Right Bilateral Mammography Impressions 08/20/2023 2:42 PM BARREL RACER There is no radiographic evidence for malignancy. Recommend annual mammograms. MAMMOGRAM ASSESSMENT: ACR 1 Negative PATIENTS: You will also receive a letter with your examination results in an easy to read format. If you have questions about your results, please contact your referring provider. Narrative 08/20/2023 2:42 PM BARREL RACER For Patients: As a result of the Century Cures Act, medical imaging exams and procedure reports are released immediately into your electronic medical record. You may view this report before your referring provider. If you have questions, please contact your health care provider. XR MAMMO ARGENIS BILAT SCREEN [[id number]] CLINICAL HISTORY: This is an asymptomatic 53 y.o. patient. INDICATION FOR EXAM: Mammogram Screening. TECHNIQUE: CC & MLO views were obtained. This study was evaluated with the assistance of Computer-Aided Detection. Breast Tomosynthesis was used in interpretation. COMPARISON FILM: Priors not available at the time of this report. FINDINGS: The breasts are heterogeneously dense, which may obscure small masses. There are no dominant masses, suspicious micro calcifications or areas of architectural distortion. us Matt Madden MD MAMMO Final Re sult * HPV HIGH RISK (08/17/2021 12:00 PM BARREL RACER) TYPE 16 Negative Negative 08/23/2021 11:45 AM BARREL RACER [facility] TRAL LABORAT[facility] TYPE 18 Negative Negative 08/23/2021 11:45 AM BARREL RACER [facility] OTHER HIGH RISK TYPES Negative Negative 08/23/2021 11:45 AM BARREL RACER [facility] TRA LABORATORY Other (Other) Client Collect / Unknown 08/17/2021 12:00 PM BARREL RACER 08/22/2021 9:01 AM BARREL RACER Narrative [facility] - 08/23/2021 11:45 AM BARREL RACER HPV types 16, 18, 31, 33, 35, 39, 45, 51, 52, 56, 58, 59, 66 and 68 DNA were undetectable or below the pre-set threshold. Methodology: [place] 4800 HPV Test us Cristine Millan MD MICROBIOLOGY Final Resu lt [facility] [address] [place] [address], from Last 3 Months or Most Recently Relevant to Health Maintenance Insurance [facility] [id number] [facility] INDIVIDUAL AND FAMILY PLANS [facility] INDIVIDUAL AND FAMILY PLANS Care Teams Client Account Manager Relationship Specialty Start Date End Date Vickey Weber MD [address] [place] [address] PCP - General Internal Medicine 01/20/23 Vickey Weber MD [address] [place] [address] 07/22/08
--- OUTSIDE RECORDS SUMMARY | 2025-03-21 17:10 | XMS_ITS | Clinical Summary ---
Author Organization [facility] Address [address] [place] [address] Care Team Providers Care Sewer Pipe Press Operator Name Role Phone Unavailable Primary Care Provider Unavailabl e Source Comments Patient records contain information from all sites at [facility]. For routine questions regarding patient records, call [phone] during business hours, M-F 8:00 AM - 5:00 PM Central Time. Record requests for emergency care only can be directed to [phone] at any time.[facility] Medications escitalopram (LEXAPRO) 10 mg tablet Take 1 tablet (10 mg total) by mouth daily. 90 tablet 3 04/09/2022 Active LORazepam (ATIVAN) 0.5 mg tablet Take 1 tablet (0.5 mg total) by mouth 2 (two) times a day as needed for anxiety. 30 tablet 04/09/2022 Active spironolactone (Aldactone) 50 mg tablet Take 1 tablet (50 mg total) by mouth daily. 90 tablet 3 07/09/2024 Active carvediloL (Coreg) 12.5 mg tablet TAKE 1 TABLET(12.5 MG) BY MOUTH TWICE DAILY WITH MEALS 180 tablet 09/30/2024 Active Active Problems Problem Noted Date Diagnosed Date Hypertensive Chronic Kidney Disease With Stage 1 Through Stage 4 Chronic Kidney Disease, Or Unspecified Chronic Kidney Disease 04/09/2022 Apnea Sleep Obstructive 04/09/2022 Social History Tobacco Use Types Packs/Day Years Used Date Smoking Tobacco: Never Assessed Comments Unknown Sex and Gender Information Value Date Recorded Sex Assigned at Not on file Legal Sex Female 2:25 PM HOTEL MAINTENANCE ENGINEER Gender Identity Not on file Sexual Orientation Not on file Last Filed Vital Signs Vital Sign Reading Time Taken Comments Blood Pressure 120/70 07/02/2022 3:45 PM HOTEL MAINTENANCE ENGINEER Pulse 60 07/02/2022 3:45 PM HOTEL MAINTENANCE ENGINEER Temperature - - Respiratory Rate - - Oxygen Saturation - - Inhaled Oxygen Concentration - - Weight 78 kg (171 lb 15.3 oz) 07/02/2022 3:45 PM HOTEL MAINTENANCE ENGINEER Height 169.5 cm (5' 6.73) 07/02/2022 3:45 PM CS T Body Mass Index 27.15 07/02/2022 3:45 PM HOTEL MAINTENANCE ENGINEER Plan of Treatment Health Maintenance Due Date Last Done Comments CT Colonography 1971 Cologuard 1971 FIT 1971 HIV Screening 1971 Hepatitis C Screening 1971 Lipid (Cholesterol) Screening 1971 Office Visit for Blood Pressure Check / Re-check 1971 Hepatitis B Vaccines (3 of 3 - 19+ 3-dose series) 03/30/1994 10/28/1993, 09/27/1993 Pneumococcal vaccine (50+ years) (1 of 1 - PCV) 2021 Zoster Vaccines (1 of 2) 2021 COVID-19 Vaccine ( - 2023- season) 2024 02/26/2022, 05/29/2021, 11/04/2020, Additional history exists Depression Screening (Annual PHQ-2) 07/21/2024 Cervical/Vaginal Cancer Screening 08/17/2024 08/17/2021 Influenza Vaccine (#1) 2025 Creatinine Level (Kidney Function Test) 07/06/2025 07/06/2024 Potassium Level 07/06/2025 07/06/2024 Sodium Level 07/06/2025 07/06/2024 Mammogram 08/23/2025 08/23/2024, 02/0 09/2024, 08/20/2023, Additional history exists Fasting Glucose for Diabetes Screening 07/06/2027 07/06/2024 DTaP,Tdap,and Td Vaccines (3 - Td or Tdap) 08/19/2033 08/19/2023, 09/29/2007 Colonoscopy 04/20/2034 04/20/2024 Colorectal Cancer Screening 04/20/2034 IPV Vaccines Aged Out No longer eligi ble based on patient's age to complete this topic Procedures Procedure Name Priority Date/Time Associated Diagnosis Comments RENAL FUNCTION PANEL, S Routine 07/06/2024 4:44 PM HOTEL MAINTENANCE ENGINEER from Last 3 Months or Most Recently Relevant to Health Maintenance Results * Renal Function Panel (07/06/2024 4:44 PM HOTEL MAINTENANCE ENGINEER) EXT Sodium 141 135 - 149 mmol/L [facility] EXT Potassium 4.1 3.6 - 5.1 mmol/L [facility] EXT Chloride 106 96 - 114 mmol/L [facility] EXT CO2 27 20 - 32 mmol/L [facility] EXT Anion Gap 8 7 - 15 mEq/L [facility] EXT BUN (Blood Urea Nitrogen) 15 7 - 30 mg/dL [facility] EXT Creatinine 0.9 0.5 - 1.5 mg/dL [facility] EXT Estimated GFR (eGFR) [address] [facility] EXT Calcium, Total 9.8 8.4 - 10.6 mg/dL [facility] EXT Glucose 102 60 - 115 mg/dL [facility] EXT Albumin 4.1 3.3 - 5.0 g/dL [facility] EXT Phosphorus (Inorganic), S 2.9 2.5 - 4.5 mg/dL [facility] 07/06/2024 4:44 PM HOTEL MAINTENANCE ENGINEER Narrative [facility] - 07/07/2024 9:26 AM HOTEL MAINTENANCE ENGINEER External results verified in Extract by Kaylan Anderson on 07/07/2024 at 09:25 AM. us Ordering Provider External M.DMirta LAB BLOOD ADD-ON Final Result [facility] [address] [place] [address], [facility] [phone] from Last 3 Months or Most Recently Relevant to Health Maintenance Insurance [place] [id number] [facility]
--- OUTSIDE RECORDS SUMMARY | 2025-03-21 17:10 | XMS_ITS | Clinical Summary ---
Author Organization [facility] Address [address] [place] [address] Care Team Providers Care Winder Operator Name Role Phone Vickey Weber MD Primary Care Provider Gonzalez Beckett MD Unavailable [phone] Silvestre Hart MD Unavailable [phone] Allergies Active Allergy Reactions Criticality Noted Date Comments Terbinafine Hives 07/06/2014 Medications carvedilol (COREG) 12.5 MG tablet Take 1 tablet by mouth 2 times daily (with meals) 3 Active escitalopram (LEXAPRO) 10 MG tablet Take 10 mg by mouth daily Active LANsoprazole (PREVACID) [address] capsule TAKE 1 CAPSULE BY MOUTH DAILY FOR GERD Active tamoxifen (NOLVADEX) 20 MG tabletIndicatio ns:Malignant neoplasm of upper-inner quadrant of right breast in female, estrogen receptor positive (H) Take 0.5 tablets (10 mg) by mouth See Admin Instructions 10 mg every other day 90 tablet 3 4 Active Additional Information Patient not taking.Reported on 03/04/2025 cholecalciferol (VITAMIN D3) 25 mcg (1000 units) capsule Take 2 capsules by mouth daily Active multivitamin w/minerals (MULTI-VITAMIN) tablet Take 1 tablet by mouth daily Active valsartan (DIOVAN) 40 MG tablet Take 40 mg by mouth daily. Active ammonium lactate (LAC-HYDRIN) 12 % external lotion APPLY TO AFFECTED AREAS ON ARMS AND LEGS DAILY. 4 Active doxycycline hyclate (VIBRA-TABS) 100 MG tablet Take 1 tablet by mouth daily at 2 pm. 5 Active cholestyramine (QUESTRAN) 4 GM/DOSE powder TAKE 1/4 SCOOP BY MOUTH TWICE DAILY 30 MINUTES BEFORE A MEAL. INCREASE DOSE BY 1 GRAM INCREMENTS TO A MAX OF 8 GRAMS BY MOUTH TWICE DAILY 5 Active LORazepam (ATIVAN) 0.5 MG tablet TAKE ONE TABLET BY MOUTH TWICE A DAY NEEDED FOR AGITATION 4 Active NIFEdipine ER OSMOTIC (PROCARDIA XL) 90 MG 24 hr tablet Take 90 mg by mouth. 4 Active MIEBO 1.338 GM/ML SOLN INSTILL 1 DROP INTO THE EYE(S) FOUR TIMES DAILY 5 Active spironolactone (ALDACTONE) 50 MG tablet 4 Active PROGESTERONE PO Take by mouth. Doseage unknown Active UNABLE TO FIND MEDICATION NAME: Thyroid medication. Dosage or brand unknown. 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 Encounters Date Type Department Care Team Description 03/04/2025 12:00 PM CDT Virtual Visit [facility] [place] [address] [address], [address] [facility] [place] [address] Silvestre Hart MD Malignant neoplasm of upper-inner quadrant of right breast in female, estrogen receptor positive (H) (Primary Dx) 02/25/2025 10:15 AM CDT Ancillary Procedure [facility] [address] [place] [phone] Silvestre Hart MD Malignant neoplasm of upper-inner quadrant of right breast in female, estrogen receptor positive (H) 02/25/2025 Telephone [facility] [address] [facility] [address] [place] [phone] Dori Crespo RN 02/24/2025 8:06 AM CDT - 02/24/2025 11:59 PM CDT Hospital Encounter [facility] [address], [address] [place] [address] Silvestre Hart MD Breast pain, left Discharge Disposition: Home or Self Care 02/24/2025 7:23 AM CDT - 02/24/2025 8:05 AM CDT Hospital Encounter [facility] [address], [address] [place] [address] Silvestre Hart MD Breast pain, left Discharge Disposition: Home or Self Care 02/24/2025 Travel 02/21/2025 11:59 AM CDT - 02/21/2025 11:59 PM CDT Hospital Encounter [facility] [address], [address] [place] [address] Silvestre Hart MD Breast pain, left Discharge Disposition: Home or Self Care 02/21/2025 11:59 AM CDT - 02/21/2025 11:59 PM CDT Hospital Encounter [facility] [address] [place] [address] Silvestre Hart MD Breast pain, left Discharge Disposition: Home or Self Care 02/21/2025 Travel 02/17/2025 Telephone [place] [id number], [address] [facility] [place] [phone] Lu Sommer RN Clinic Care Coordination - Follow-up 02/17/2025 Orders Only [place] [id number] [facility] [place] [phone] Lu Sommer RN Breast pain, left (Primary Dx) from Last 3 Months Social History Tobacco Use Types Packs/Day Years Used Date Smoking Tobacco: Never Smokeless Tobacco: Never Tobacco Cessation:Counseling Given: Yes Adolescent Education Answer Date Record ed Getting School Help Needed Not on file 09/11 Comments Unknown Sex and Gender Information Value Date Recorded Sex Assigned at Not on file Legal Sex Female 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 Gender Identity Not on file Sexual Orientation Not on file Last Filed Vital Signs Vital Sign Reading Time Taken Comments Blood Pressure 128/92 04/20/2024 8:55 AM CDT Pulse 62 04/20/2024 8:57 AM CDT Temperature - - Respiratory Rate 24 04/20/2024 8:58 AM CDT Oxygen Saturation 96% 04/20/2024 8:57 AM CDT Inhaled Oxygen Concentration - - Weight 76.2 kg (168 lb) 08/27/2024 10:10 AM ATTENDING AMBULATORY CARE Height 169.5 cm (5' 6.75) 12/22/2023 8:42 AM CD T Body Mass Index 26.51 12/22/2023 8:42 AM CDT Plan of Treatment Health Maintenance Due Date Last Done Comments ADVANCE CARE PLANNING 1970 ANNUAL REVIEW OF HM ORDERS 1971 CT COLONOGRAPHY 1970 DIABETES SCREENING 1970 FIT 1970 FLEX SIG 1971 sDNA (Cologuard) 1971 YEARLY PREVENTIVE VISIT 1974 HIV SCREENING 1986 HEPATITIS C SCREENING 1989 HEPATITIS B VACCINE (3 of 3 - 19+ 3-dose series) 03/30/1994 10/28/1993, 09/27/1993 LIPID 2011 PNEUMOCOCCAL VACCINE 50+ YEARS (1 of 1 - PCV) 2021 ZOSTER VACCINE (1 of 2) 2021 COVID-19 VACCINE (5 - 2023- season) 2024 02/26/2022, 05/29/2021, 11/04/2020, Additional history exists PHQ-2 (once per calendar year) 2024 PAP 08/17/2024 08/17/2021 INFLUENZA VACCINE (#1) 2025 DTAP/TDAP/TD VACCINE (3 - Td or Tdap) 08/19/2033 08/19/2023, 09/29/2007 COLONOSCOPY 04/20/2034 04/20/2024, 04/20/2024 COLORECTAL CANCER SCREENING 04/20/2034 MAMMO SCREENING Discontinued 02/21/2025, 02/0 09/2024, 08/20/2023, Additional history exists HPV VACCINE (No Doses Required) Completed MENINGITIS VACCINE Aged Out No longer eligible based on patient's age to complete this topic Procedures Procedure Name Priority Date/Time Associated Diagnosis Comments MR BREAST BILATERAL W/O & W CONTRAST Routine 02/25/2025 10:43 AM CDT Malignant neoplasm of upper-inner quadrant of right breast in female, estrogen receptor positive (H) MA POST PROCEDURE LEFT Routine 02/24/2025 8:20 AM CDT Breast pain, left US BREAST BIOPSY CORE NEEDLE LEFT Routine 02/24/2025 8:08 AM CDT Breast pain, left SURGICAL PATHOLOGY EXAM Routine 02/24/2025 8:05 AM CDT Breast pain, left US BREAST LEFT LIMITED 1-3 QUADRANTS Routine 02/21/2025 1:19 PM CDT Breast pain, left MA DIAGNOSTIC LEFT W/ MIKE Routine 02/21/2025 12:47 PM CDT Breast pain, left COLONOSCOPY Routine 04/20/2024 7:31 AM CDT from Last 3 Months or Most Recently Relevant to Health Maintenance Results * MR Breast Bilateral w/o & [...] Continued screening per high risk screening guidelines. DAY DAMON MD Narrative 02/25/2025 1:50 PM CDT [...] Internal Mammary Chain: No lymphadenopathy. Procedure Note Day Damon MD - 02/25/2025 Exam: Breast MRI, [...] Continued screening per high risk screening guidelines. DAY DAMON MD Silvestre Hart MD IMG MRI ORDERABLES Final Result * MA Post Procedure Left (02/24/2025 8:20 AM CDT) Anatomical Region Laterality Modality Breast Left Mammography Addenda Addendum by Shannan Newton MD on 02/25/2025 2:57 PM CDT Pathology: Cores of fibroadipose tissue with fat necrosis and dense fibrosis. No evidence of malignancy. Concordance: Concordant Recommendation: 6 month follow-up ultrasound SHANNAN NEWTON MD Impressions 02/24/2025 8:44 AM CDT IMPRESSION: Successful ultrasound-guided core biopsy of the breast. Final pathology is pending. SHANNAN NEWTON MD Narrative 02/24/2025 8:44 AM CDT ULTRASOUND-GUIDED [...] introducer. A clip was then deployed to jacki the lesion. Postbiopsy unilateral digital mammogram was obtained with findings described above. The patient tolerated the procedure without difficulty and there was no immediate complication. Procedure Note Shannan Newton MD - 02/24/2025 ULTRASOUND-GUIDED BREAST CORE BIOPSY; CLIP PLACEMENT; POSTPROCEDURE DIGITAL MAMMOGRAM; US BREAST BIOPSY CORE NEEDLE LEFT, UT POST PROCEDURE LEFT 02/24/2025 8:43 AM INDICATION [...] introducer. A clip was then deployed to jacki the lesion. Postbiopsy unilateral digital mammogram was obtained with findings described above. The patient tolerated the procedure without difficulty and there was no immediate complication. IMPRESSION: Successful ultrasound-guided core biopsy of the breast. Final pathology is pending. SHANNAN NEWTON MD Silvestre Hart MD IMG MAMMOGRAPHY ORDERABLE S Edited Result - Final * US Breast Biopsy Core Needle Left (02/24/2025 8:08 AM CDT) Anatomical Region Laterality Modality Breast Left Ultrasound Addenda Addendum by Shannan Newton MD on 02/25/2025 2:57 PM CDT Pathology: Cores of fibroadipose tissue with fat necrosis and dense fibrosis. No evidence of malignancy. Concordance: Concordant Recommendation: 6 month follow-up ultrasound SHANNAN NEWTON MD Impressions 02/24/2025 8:44 AM CDT IMPRESSION: Successful ultrasound-guided core biopsy of the breast. Final pathology is pending. SHANNAN NEWTON MD Narrative 02/24/2025 8:44 AM CDT ULTRASOUND-GUIDED BREAST CORE BIOPSY; CLIP PLACEMENT; POSTPROCEDURE DIGITAL MAMMOGRAM; US BREAST BIOPSY CORE NEEDLE SAM MAURER POST PROCEDURE LEFT 02/24/2025 8:43 AM INDICATION [...] introducer. A clip was then deployed to jacki the lesion. Postbiopsy unilateral digital mammogram was obtained with findings described above. The patient tolerated the procedure without difficulty and there was no immediate complication. us Silvestre Hart MD [facility] US ORDERABLES Edited Result - Final * Surgical Pathology Exam (02/24/2025 8:05 AM CDT) Case Report Surgical Pathology Report Case: [id number] Authorizing Provider: Silvestre Hart MD Collected: 02/24/2025 08:05 AM Ordering Location: [facility] Received: 02/24/2025 08:26 AM Breast [...] in formalin: 8:08 AM on 02/24/2025. ALBERTO Jin(ASCP)CM 02/24/2025 9:29 AM 02/25/2025 12:08 PM CDT LABORATORY Microscopic Description Microscopic examination was performed and results are incorporated into the final diagnosis. 02/25/2025 12:08 PM CDT LABORATORY Performing Labs The technical component of this testing was completed at [facility]. Stain controls for all stains resulted within this report have been reviewed and show appropriate reactivity. 02/25/2025 12:08 PM CDT LABORATORY Case Images 02/25/2025 12:08 PM CDT LABORATORY Biopsy STRUCTURE OF LEFT AXILLARY REGION / Unknown 02/24/2025 8:05 AM CDT 02/24/2025 8:26 AM CDT Comment:Left axillary ultras ound core biopsy, 0.3 cm size. High suspicion. Performed by Dr. Shannan Newton. Indication: left axillary mass. us Silvestre POWER - MENG MULLIGAN Final Res ult LABORATORY [facility] [address] 1[address] floor, [address] [place] [address], [place] [phone] LABORATORY [facility] [address] [facility] (1st floor, no room number) [place] [address], [place] * (ABNORMAL) US Breast Left (02/21/2025 1:19 [...] other abnormality and no evidence of adenopathy. us Silvestre Hart MD G US ORDERABLES Edited * (ABNORMAL) MA Diagnostic Left w/ Mike [...] other abnormality and no evidence of adenopathy. us Silvestre Hart MD IMG MAMMOGRAPHY ORDERABLE S Final Result * COLONOSCOPY (04/20/2024 7:31 AM CDT) COLONOSCOPY [place] [address] [place] [address] Patient Name: Valeria Menon Procedure Date: 04/20/2024 7:31 AM Date of : 1970 Admit Type: Outpatient Age: 53 Room: [place] [address] Note Status: Finalized Attending MD: JACKI YOUNG , , Total Sedation Time: 15 mins of continuous bedside 1:1 Instrument Name: 522 [id number] Adult Colon Procedure: Colonoscopy Indications: Screening for colorectal malignant neoplasm Providers: JACKI YOUNG, Lisa Barlow RN Referring MD: SILVESTRE HART MD Medicines: Fentanyl 100 micrograms IV, Midazolam 2 mg IV Complications: No immediate complications. Estimated blood loss: None. Procedure: Pre-Anesthesia Assessment: - Prior to the procedure, a History and Physical was performed, and patient medications and allergies were reviewed. The patient is competent. The risks and benefits of the procedure and the sedation options and risks were discussed with the patient. All questions were answered and informed consent was obtained. Patient identification and proposed procedure were verified by the physician and the nurse in the procedure room. Mental Status Examination: alert and oriented. Airway Examination: normal oropharyngeal airway and neck mobility and Mallampati Class II (the uvula but not tonsillar pillars visualized). Respiratory Examination: clear to auscultation. CV Examination: RRR, no murmurs, no S3 or S4. Prophylactic Antibiotics: The patient does not require prophylactic antibiotics. Prior Anticoagulants: The patient has taken no anticoagulant or antiplatelet agents. ASA Grade Assessment: II - A patient with mild systemic disease. After reviewing the risks and benefits, the patient was deemed in satisfactory condition to undergo the procedure. The anesthesia plan was to use moderate sedation / analgesia (conscious sedation). Immediately prior to administration of medications, the patient was re-assessed for adequacy to receive sedatives. The heart rate, respiratory rate, oxygen saturations, blood pressure, adequacy of pulmonary ventilation, and response to care were monitored throughout the procedure. The physical status of the patient was re-assessed after the procedure. After obtaining informed consent, the colonoscope was passed under direct vision. Throughout the procedure, the patient's blood pressure, pulse, and oxygen saturations were monitored continuously. The 522 was introduced through the anus and advanced to the cecum, identified by appendiceal orifice and ileocecal valve. The ileocecal valve, the appendiceal orifice and the rectum were photographed. The colonoscopy was performed without difficulty. The patient tolerated the procedure well. The quality of the bowel preparation was good. Scope withdrawal time was 9 minutes. The total duration of the procedure was 12 minutes. Findings: The digital rectal exam was normal. A few small-mouthed diverticula were found in the sigmoid colon and ascending colon. There was evidence of diverticular spasm. The exam was otherwise without abnormality on direct and retroflexion views. Impression: - Mild diverticulosis in the sigmoid colon and in the ascending colon. There was evidence of diverticular spasm. - The examination was otherwise normal on direct and retroflexion views. - No specimens collected. Recommendation: - Discharge patient to home (ambulatory). - High fiber diet indefinitely. - Repeat colonoscopy in 10 years for screening purposes. Procedure Code(s): --- Professional --- 04950, Colonoscopy, flexible; diagnostic, including collection of specimen(s) by brushing or washing, when performed (separate procedure) Diagnosis Code(s): --- Professional --- Z12.11, Encounter for screening for malignant neoplasm of colon K57.30, Diverticulosis of large intestine without perforation or abscess without bleeding CPT copyright 2021 [employer]. All rights reserved. The codes documented in this report are preliminary and upon goodwill ambassador review may be revised to meet current compliance requirements. Electronic Signature by: Dr. Young JACKI YOUNG, 04/20/2024 8:36:24 AM I was physically present for the entire viewing portion of the exam. JACKI YOUNG Number of Addenda: 0 Note Initiated On: 04/20/2024 7:31 AM Scope Withdrawal Time: 0 hours 9 minutes 40 seconds Total Procedure Duration: 0 hours 12 minutes 32 seconds Scope In: 8:18:15 AM Scope Out: 8:30:47 AM RADIOLOGY RESULTS 04/20/2024 7:31 AM CDT us Silvestre Hart MD PROCEDURES Final Res ult RADIOLOGY RESULTS from Last 3 Months or Most Recently Relevant to Health [place] [address] [facility] [employer] [place] [id number] [facility] [employer] Care Teams Winder Operator Relationship Specialty Start Date End Date Vickey Weber MD [facility] [address] [facility] [place] [address] PCP - General Emergency Medicine 09/11/23 Gonzalez Beckett MD [address] [place] [id number] Assigned Surgical Provider 10/03/23 Silvestre Hart MD [address] [place] [id number] Assigned Cancer Care Provider 10/03/23
--- OUTSIDE RECORDS SUMMARY | 2025-03-21 17:10 | XMS_ITS | Encounter Summary ---
Author Organization [facility] Address [address] [place] [address] Care Team Providers Care Skill Training Program Coordinator Name Role Phone Vickey Weber MD Primary Care Provider Gonzalez Beckett MD Unavailable [phone] Herman Keller MD Unavailable [phone] Encounter Details Date Type Department Care Team (Latest Contact Info) Description 02/21/2025 Travel Social History Tobacco Use Types Packs/Day Years Used Date Smoking Tobacco: Never Smokeless Tobacco: Never Adolescent Education Answer Date Record ed Getting School Help Needed Not on file 09/11 Comments Unknown Sex and Gender Information Value Date Recorded Sex Assigned at Not on file 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 Gender Identity Not on file Sexual Orientation Not on file documented as of this encounter Plan of Treatment Not on file documented as of this encounter Visit Diagnoses Not on filedocumented in this encounter Care Teams Skill Training Program Coordinator Relationship Specialty Start Date End Date Vickey Weber MD [facility] [address] [place] [address] PCP - General Emergency Medicine 09/11/23 Gonzalez Beckett MD [address] [place] [address] Assigned Surgical Provider 10/03/23 Herman Keller MD [address] [facility] [address] [place] [id number] Assigned Cancer Care Provider 10/03/23 documented as of this encounter
--- OUTSIDE RECORDS SUMMARY | 2025-03-21 17:10 | XMS_ITS | Encounter Summary ---
Author Organization [facility] Address [address] [place] [address]. [place] [address] Care Team Providers Care Pbx Teacher Name Role Phone Vickey Weber MD Primary Care Provider Gonzalez Beckett MD Unavailable [phone] Herman Keller MD Unavailable [phone] Reason for Visit * Reason Onset Date Comments Clinic Care Coordination - Follow-up 02/17/2025 Encounter Details Date Type Department Care Team (Late st Contact Info) Description 02/17/2025 Telephone [facility] [place] [address] [facility] [place] [address] Lu Sommer, RN Clinic Care Coordination - Follow-up Social History Tobacco Use Types Packs/Day Years Used Date Smoking Tobacco: Never Smokeless Tobacco: Never Adolescent Education Answer Date Record ed Getting School Help Needed Not on file 09/11 Comments Unknown Sex and Gender Information Value Date Recorded Sex Assigned at Not on file 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 She states that this is a new onset. Consulted with Dr. Keller left breast ultrasound and diagnostic mammogram will be ordered. Rn X Ray will follow up on results. Lu Sommer RN,BSN,OCN,CBCN documented in this encounter Plan of Treatment Not on file documented as of this encounter Visit Diagnoses Not on filedocumented in this encounter Care Teams Pbx Teacher Relationship Specialty Start Date End Date Vickey Weber MD [facility] [address] [place] [address] PCP - General Emergency Medicine 09/11/23 Gonzalez Beckett MD [address] [place] [id number] Assigned Surgical Provider 10/03/23 Herman Keller MD [address] [place] [id number] Assigned Cancer Care Provider 10/03/23 documented as of this encounter
--- OUTSIDE RECORDS SUMMARY | 2025-03-21 17:10 | XMS_ITS | Encounter Summary ---
Author Organization [facility] Address [address] [place] [address] Care Team Providers Care Healthcare Representative Name Role Phone Vickey Weber MD Primary Care Provider Gonzalez Beckett MD Unavailable [phone] Herman Keller MD Unavailable [phone] Encounter Details Date Type Department Care Team (Late st Contact Info) Description 02/25/2025 Telephone [facility] [address] [facility], [address] [place] [phone] Dori Crespo RN Social History Tobacco Use Types Packs/Day Years Used Date Smoking Tobacco: Never Smokeless Tobacco: Never Adolescent Education Answer Date Record ed Getting School Help Needed Not on file 09/11 Comments Unknown Sex and Gender Information Value Date Recorded Sex Assigned at Not on file 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 Valdez, who confirmed the recent breastimaging is concordant with the final pathology results below. I phoned Valeria Menon, confirmed her full name, date of , and informed patient of her UltrasoundGuided Core Breast Needle Biopsy (02/24/25) results showing A. Axilla, left, 0.3 cm size nodule, needle core biopsy: - Cores of fibroadipose tissue with fat necrosis and dense fibrosis. - No evidence of malignancy. Recommended follow up is 6 month follow up ultrasound Patient states no problems or concerns with her biopsy site. Questions were answered and my phone number given if she has further questions or concerns. I informed patient I will notify the ordering provider of the results and recommendations for follow up. Patient verbalized understanding and agrees with the plan of care. Dori Crespo RN [facility] [phone] documented in this encounter Plan of Treatment Not on file documented as of this encounter Visit Diagnoses Not on filedocumented in this encounter Care Teams Healthcare Representative Relationship Specialty Start Date End Date Vickey Weber MD [facility] [address] [place] [address] PCP - General Emergency Medicine 09/11/23 Gonzalez Beckett MD [address] [place] [id number] Assigned Surgical Provider 10/03/23 Herman Keller MD [address] [place] [address] Assigned Cancer Care Provider 10/03/23 documented as of this encounter
--- NOTE | 2025-03-21 17:23 | ED_ITS ---
HPI - General Adult General Chief complaint: Chest Pain Stated complaint: chest pain/ weakness/sharp pain in feet Time Seen by Provider: 03/21/25 17:23 History of Present Illness HPI narrative: Pt reports onset of weakness, fatigue, and chest pains today. Also has shooting pains in hands and legs/feet. Is currently being treated for skin cancer. 54-year-old woman presenting to the emergency department with concern of some intermittent left upper chest pain. Feels like a poking. Does not sound as though specifically associated with tachycardia or irregular heartbeat. She does report a history of tachycardia but it is unclear to me of what kind of tachycardia that is. Also in the setting of hypertension. Does have a history of anxiety as well. She notes that she does take carvedilol regularly. Did just have a biopsy of cancer at the left upper chest. Notes clean margins. Also is anticipating treatment for some skin cancer at the left upper arm and a couple spots 1 on each anterior lower leg. She did have some tingling and shooting discomfort that went from lower portion or mid foot up to her toes bilaterally. itching. Sounds like right greater than left. That is still slightly present. All these discomforts have been settling. Also today noted unusual fatigue with exertion. Pain is not pleuritic. It just comes and goes in her chest and ?poking?. Measure heart rate at 1 point at nearly 130. Related Data Home Medications ?Medication ?Instructions ?Recorded ?Confirmed multivitamin (Multiple Vitamins 1 tab PO QDAY 03/20/22 12/09/24 tablet) copper 380 square mm intrauterine 1 device intrauterin e ONCE 09/18/23 12/09/24 device (ParaGard T 380A) Ivermectin 36mg PO 12/09/24 spironolactone 50 mg tablet 50 mg PO QAM 12/09/2411/19 Previous Rx's ?Medication ?Instructions ?Recorded carvedilol 25 mg tablet 25 mg PO BID #180 tabs 06/22 escitalopram oxalate 10 mg tablet 10 mg PO QDAY #90 ta bs 09/07/24 (Lexapro) lorazepam 0.5 mg tablet (Ativan) 0.5 mg PO BID PRN fariba tation #30 12/21/24 tabs tobramycin 0.3 %-dexamethasone 0.1 1 drp ophthalmic (e ye) BID #2.5 mL 12/21/24 % eye drops,suspension nifedipine 90 mg tablet,extended 90 mg PO DAILY #90 ta bs 01/05/25 release 24 hr fluconazole 150 mg tablet 150 mg PO QDAY 14 days #14 t abs 03/14/25 lansoprazole 30 mg capsule,delayed 30 mg PO DAILY GERD #90 caps 03/14/25 release Allergies Allergy/AdvReac Type Severity Reaction Status Date / Time terbinafine Allergy Unknown Hives Verified 12/09/24 10:40 FUNGUS MED FOR FINGER NAILS Allergy Unknown Hives Uncoded 12/09/24 10:40 Review of Systems Status of ROS: Reports: 6 or more systems reviewed and unremarkable except as noted in History and below [facility] Medical History Tinea ?B35.9 - Dermatophytosis, unspecified (ICD-10) Anemia ?D64.9 - Anemia, unspecified (ICD-10) Eye pain ?H57.10 - Ocular pain, unspecified eye (ICD-10) Palpitations (09/19/09) ?R00.2 - Palpitations (ICD-10) Hypertensive urgency ?I16.0 - Hypertensive urgency (ICD-10) Difficulty sleeping ?G47.9 - Sleep disorder, unspecified (ICD-10) Deviated nasal septum ?J34.2 - Deviated nasal septum (ICD-10) Fatigue ?R53.83 - Other fatigue (ICD-10) Obesity ?E66.9 - Obesity, unspecified (ICD-10) Low back pain ?M54.50 - Low back pain, unspecified (ICD-10) GERD (gastroesophageal reflux disease) ?K21.9 - Gastro-esophageal reflux disease without esophagitis (ICD-10) RUEL (obstructive sleep apnea) ?G47.33 - Obstructive sleep apnea (adult) (pediatric) (ICD-10) Anxiety ?F41.9 - Anxiety disorder, unspecified (ICD-10) Social History What is your current living situation?: I presently have a place to live Problems where you live: no known problems In the past 12 months, utilities in danger of being shut off: no In past 12 months, lack of transportation kept you from medical appts, meetings, work, or getting things needed for daily living: no In the past 12 mos, have been you worried that your food would run out before you had money to buy more?: never true In the past 12 mos, the food you bought just didn't last and you didn't have money to buy more?: never true Smoking Status: Never smoker How often do you have a drink containing alcohol: 4 or more times a week How many standard drinks containing alcohol do you have on a typical day: 1 or 2 AUDIT-C Alcohol total score: 4 Non-prescribed substance use: denies use How often does anyone, including family, friends and others, physically hurt you : never How often does anyone, including family, friends and others, insult or talk down to you: never How often does anyone, including family, friends and others, threaten you with harm: never How often does anyone, including family, friends and others, scream or curse at you: never Exam Narrative: Exam Narrative: Pleasant. NAD. Skin is warm and dry. Breathing easily. Neck is supple without lymphadenopathy. No supraclavicular crepitus. There is a surgical site at the left upper chest above where she is describing the discomfort, without erythematous changes but is covered with Steri-Strips. Lungs are clear with breath sounds diffusely. Heart in elevated to nearly tachycardic rate in a reg ular rhythm without murmur rub or gallop. Abdomen is soft and nontender. Not able to reproduce this area of poking discomfort in the left chest. On monitor does not appear to correlate with any irregular beats. Intact sensation distally. Well-perfused. Const: Vital Signs, click to edit/add: Vital Signs - 24 hr 03/21/25 17:16 03/21/25 17:28 03/21/25 17:30 Temperature 97.4 F L Pulse Rate Pulse Rate [Pulse Oximeter] 108 H Respiratory Rate 20 22 Blood Pressure Blood Pressure [Ri ght Upper Arm] 100/68 Pulse Oximetry 97 95 Oxygen Delivery Me thod Room Air 03/21/25 17:30 03/21/25 17:31 03/21/25 17:45 Temperature Pulse Rate 98 94 97 Pulse Rate [Pulse Oximeter] Respiratory Rate 16 17 9 L Blood Pressure 129/89 Blood Pressure [Ri ght Upper Arm] Pulse Oximetry 98 96 97 Oxygen Delivery Me thod 03/21/25 18:00 03/21/25 18:02 03/21/25 18:15 Temperature Pulse Rate 89 89 86 Pulse Rate [Pulse Oximeter] Respiratory Rate 14 Blood Pressure 114/84 Blood Pressure [Ri ght Upper Arm] Pulse Oximetry 96 93 96 Oxygen Delivery Me thod 03/21/25 18:30 03/21/25 18:32 03/21/25 18:45 Temperature Pulse Rate 88 83 85 Pulse Rate [Pulse Oximeter] Respiratory Rate 12 28 H Blood Pressure 118/84 Blood Pressure [Ri ght Upper Arm] Pulse Oximetry 99 96 96 Oxygen Delivery Me thod 03/21/25 19:00 03/21/25 19:01 03/21/25 19:15 Temperature Pulse Rate 84 89 86 Pulse Rate [Pulse Oximeter] Respiratory Rate 12 Blood Pressure 119/82 Blood Pressure [Ri ght Upper Arm] Pulse Oximetry 97 98 96 Oxygen Delivery Me thod Room Air Documenting provider has reviewed patient's vital signs: yes Course Vital Signs Vital signs: Initial Vital Signs Temperature 97.4 F L 03/21/25 17:16 Temperature Source Temporal Artery Scan 03/21/25 17:16 Pulse Rate 108 H 03/21/25 17:16 Respiratory Rate 20 03/21/25 17:16 Blood Pressure 100/68 03/21/25 17:16 Blood Pressure Mean 78 03/21/25 17:16 Blood Pressure Position Sitting 03/21/25 17:16 Pulse Oximetry 97 03/21/25 17:16 Oxygen Delivery Method Room Air 03/21/25 17:16 Vital Signs Temperature 97.4 F L 03/21/25 17:16 Pulse Rate 108 H 03/21/25 17:16 Respiratory Rate 20 03/21/25 17:16 Blood Pressure 100/68 03/21/25 17:16 Pulse Oximetry 97 03/21/25 17:16 Oxygen Delivery Method Room Air 03/21/25 17:16 Temperature 97.4 F L 03/21/25 17:16 Pulse Rate 86 03/21/25 19:15 Respiratory Rate 12 03/21/25 19:01 Blood Pressure 119/82 03/21/25 19:01 Pulse Oximetry 96 03/21/25 19:15 Oxygen Delivery Method Room Air 03/21/25 19:01 Medications Administered Medications: Discontinued Medications Generic Name Dose Route Start Last Admin Trade Name Mallory PRN Reason Stop Dose Admin Sodium Chloride 500 mls @ 500 mls/hr 03/21/25 17:49 03/21/25 19:14 0.9 % Sodium Chloride 500 Ml IV 03/21/25 18:48 Infused .Q1H ONE Infusion Medical Decision Making MDM Narrative Medical decision making narrative: Differential would include tachyarrhythmia contributing to exertional fatigue, pulmonary embolus, pneumonia other does not appear to have any infectious symptoms, pneumothorax, ischemic cardiovascular event, among others. Not sure I can correlate the symptoms in the chest with the symptoms in the feet. Will check standard labs. Monitor on cardiac rehabilitation program director and oximetry. EKG independently reviewed by me shows a sinus tachycardia at 106. I do not appreciate any ischemic changes. still maybe a little short of breath with exertion but much better. Heart rate has come down over time in the emergency department. Symptoms otherwise have resolved. She does acknowledge later in conversation that 2 hours prior to presentation she did take an extra dose of her carvedilol. Perhaps this has finally kicked in. Labs are reassuring. With history of symptomatic tachycardia, no AFib/flutter, and normal D-dimer, without respiratory symptoms otherwise, I am less inclined to scan. I did offer repeat cardiac labs but she would prefer to go home at this point. I think doubtful that there has been ischemic cardiac event; symptoms seem atypical otherwise. Medical Records Medical records reviewed: Yes I reviewed the patient's medical records Lab Data Lab results reviewed: Yes I reviewed the patient's lab results Labs: Lab Results 03/21/25 03/21/25 Range/Units 17:42 17:50 WBC 8.20 (4.50-11.00) K/uL RBC 4.28 (4.00-5.20) m/uL Hgb 14.1 (12.0-16.0) gm/dL Hct 40.2 (33.0-51.0) % MCV 94 (80-100) fL MCH 33 (26-34) pg MCHC 35 (32-36) gm/dL RDW Coeff of Ronald 11.4 L (11.5-15.5) % Plt Count 370 (140-440) K/uL Neut % (Auto) 61.3 (42.0-72.0) % Lymph % (Auto) 26.7 (20-44) % [place] % (Auto) 9.0 (0.0-11.0) % Eos % (Auto) 2.7 (0.0-7.0) % Baso % (Auto) 0.2 (0.0-3.0) % Neut # (Auto) 5.02 (1.7-7.0) K/uL Lymph # (Auto) 2.19 (0.90-2.90) K/uL [place] # (Auto) 0.70 (0.00-0.90) K/UL Eos # (Auto) 0.22 (0.00-0.50) K/uL Baso # (Auto) 0.02 (0.00-0.30) K/uL Abs Immat Gran (auto) 0.01 (0.00-0.30) K/uL Imm/Tot Granulo (auto) 0.1 % D-Dimer Quant (PE/DVT) < 0.01 (0.00-0.50) ug/ml Sodium 135 (135-149) mmol/L Potassium 4.0 (3.6-5.1) mmol/L Chloride 101 (96-114) mmol/L Carbon Dioxide 23 (20-32) mmol/L Anion Gap 11 (7-15) mEq/L BUN 29 (7-30) mg/dL Creatinine 1.0 (0.5-1.5) mg/dL Estimated Creat Clear 63.27 Estimated GFR 67 ml/min Glucose 103 (60-115) mg/dL Calcium 10.8 H (8.4-10.6) mg/dL C-Reactive Protein < 0.5 L (0.5-1.0) mg/dL SARS-CoV-2 (PCR) Negative SARS-CoV-2 (Negative) POC Troponin I 0.01 (0.01-0.04) ng/ml Discharge Plan Discharge Clinical Impression: Tachycardia, Fatigue Patient Disposition: Home, Self-Care Condition: Improved Additional Instructions: you did receive a bolus of normal saline here in the emergency department. Perhaps your pocket pill of carvedilol was helpful. Your labs at least in the initial round as discussed were reassuring. I understand that you feel better and would like to head home at this point. return for increasing and persistent chest pain or worsening shortness of breath, lightheadedness. Prescriptions: No Action ParaGard T 380A 380 square mm intrauterine device 1 device intrauterine ONCE Rx Instructions: as a single dose multivitamin [Multiple Vitamins] Tablet 1 tab PO QDAY spironolactone 50 mg tablet 50 mg PO QAM Ivermectin 36mg PO carvedilol 25 mg tablet 25 mg PO BID Qty: 180 3RF Rx Instructions: must administer with a meal/food escitalopram oxalate [Lexapro] 10 mg tablet 10 mg PO QDAY Qty: 90 3RF lorazepam [Ativan] 0.5 mg tablet 0.5 mg PO BID PRN (Reason: agitation) Qty: 30 0RF tobramycin-dexamethasone 0.3-0.1 % drops,suspension 1 drp ophthalmic (eye) BID Qty: 2.5 2RF Rx Instructions: Instill one drop in both eyes BID nifedipine 90 mg tablet extended release 24hr 90 mg PO DAILY Qty: 90 1RF fluconazole 150 mg tablet 150 mg PO QDAY 14 Days Qty: 14 0RF lansoprazole 30 mg capsule,delayed release(DR/EC) 30 mg PO DAILY Qty: 90 2RF Follow Up/Referrals: Vickey Weber MD [Primary Care Provider, Internal Medicine] Stand Alone Forms: [facility] [place] Info Instructions
[2025-03-21 17:47] LABS: Troponin, Point-of-Care* 0.01 ng/ml (0.01-0.04)
--- OUTSIDE RECORDS SUMMARY | 2025-03-21 17:55 | XMS_ITS | CCD ---
Author Name Interface, [id number] lity Address [address] [place] [address] Oncology Address [address] [place] [id number] Reason for Visit Social History Date Name Value Sex Unknown
--- OUTSIDE RECORDS SUMMARY | 2025-03-21 17:56 | XMS_ITS | CCD ---
Author Name Interface, [id number] lity Address [address] [place] [address] Oncology Address [address] [place] [id number] Reason for Visit Social History Date Name Value Sex Unknown
[2025-03-21 18:05] LABS: Hematocrit 40.2 % (33.0-51.0); Hemoglobin* 14.1 gm/dL (12.0-16.0); Immature Granulocytes Abs Auto 0.01 K/uL (0.00-0.30); Immature Granulocytes Pct Auto 0.1 %; Lymphocytes Absolute Auto 2.19 K/uL (0.90-2.90); Mean Corpuscular HGB Conc 35 gm/dL (32-36); Mean Corpuscular Hemoglobin 33 pg (26-34); Mean Corpuscular Volume 94 fL (80-100); RDW Coefficient of Variation % 11.4 % (11.5-15.5); Red Blood Count 4.28 m/uL (4.00-5.20); White Blood Count* 8.20 K/uL (4.50-11.00)
[2025-03-21] MEDS: 0.9 % SODIUM CHLORIDE 500 ML 500 ML IV (18:09)
[2025-03-21 18:17] LABS: Chloride* 101 mmol/L (96-114)
[2025-03-21 18:18] LABS: Potassium* 4.0 mmol/L (3.6-5.1); Sodium* 135 mmol/L (135-149)
[2025-03-21 18:21] LABS: Anion Gap 11 mEq/L (7-15); Blood Urea Nitrogen* 29 mg/dL (7-30); Calcium* 10.8 mg/dL (8.4-10.6); Carbon Dioxide* 23 mmol/L (20-32); Creatinine* 1.0 mg/dL (0.5-1.5); Est. Creatinine Clearance* 63.27; Estimated Glomerular Filt Rate 67 ml/min; Glucose* 103 mg/dL (60-115); Slide Review Reflex No
[2025-03-21 18:27] LABS: D Dimer Quantitative* < 0.01 ug/ml (0.00-0.50)
[2025-03-21 18:47] LABS: SARS PCR* Negative SARS-CoV-2 (Negative)
== END 2025-03-21 19:57 | disposition home or self-care (01) ==
PROVIDERS: Emergency Provider Family Medicine; PCP Internal Medicine
DX: R00.0 Tachycardia, unspecified (principal); R53.83 Other fatigue
CPT/HCPCS: 36415; 80048; 84484; 85025; 85379; 86140; 87635; 93005; 94761; 99284; J7030